=== PATIENT | male | born 1935 | race Caucasian/White ===

== ENCOUNTER → 2016-04-28 | Outpatient (CLI) | payer MEDICARE, BC ==
--- NOTE | 2016-04-28 21:26 | CT ---
EXAMINATION TYPE: CT chest wo con DATE OF EXAM: 04/28/2016 5:55 PM COMPARISON: NONE HISTORY: Productive cough CT DLP: 418.4 mGycm Automated exposure control for dose reduction was used. FINDINGS: There are numerous blebs or bulla seen throughout both lungs compatible with obstructive pulmonary di sease. Small pleural-based calcification in the left upper lobe compatible with granuloma or pleural calcifi cation. There is no pneumothorax pleural effusion. Lack of contrast limits the exam however there appears to be groundglass changes noted bilaterally which could been the basis of an alveolitis or pneumonitis. Additionally appears to be if rounded nodular density within the right lower lobe contains an air-flu id level may represent fluid within a bulla or bleb axial image 48 Pleural-based 10 mm nodule superior segment right lower lobe. Additional nodule seen within the anter ior segment of the lingula axial image 52. There is a 9 mm nodule in posterior segment of the left lo wer lobe also seen. Additional nodule seen in the right upper lobe image 42 measuring 7.5 mm. There i s a 6 mm nodule image 55 in the right lower lobe. The heart is enlarged and there is coronary artery calcification. Atherosclerotic change of the aorta noted. Hypertrophic and degenerative spine. IMPRESSION: 1. Changes of COPD with multiple bulla and bleb. There is a rounded nodule in the right infrahilar re gion upper lobe measuring 2 cm which appears to contain a fluid level likely representing fluid withi n a bulla. Infected bulla in the differential. Abscess or neoplasm not entirely excluded but felt les s likely. 2. Scattered areas of groundglass changes could been the basis of mild alveolitis or pneumonitis. 3. There are multiple pulmonary nodules seen bilaterally with the largest measuring 1 cm. Would recom mend PET scan for further evaluation. Findings could potentially be postinflammatory rather than neop lastic correlate clinically. Given the multiplicity of nodules and lack of calcification PET scan rec ommended as neoplasm or metastasis is not excluded.
== END | disposition home or self-care (01) ==
LOC: RADCTMAIN 17:13
PROVIDERS: ATTEND Internal Medicine Sleep Medicine
DX: J44.9 Chronic obstructive pulmonary disease, unspecified (principal); R91.8 Other nonspecific abnormal finding of lung field
CPT/HCPCS: 71250

== ENCOUNTER 2016-05-19 11:48 | Day surgery (SDC) | payer MEDICARE, BC ==
--- NOTE | 2016-05-13 16:48 | HP ---
DATE OF ADMISSION: CHIEF COMPLAINT: Cough, congestion, shortness of breath and streaks of blood. HISTORY OF PRESENTING ILLNESS: Mr. Kun Bear is an 80-year-old male with extensive history of smoking and nicotine use. He has smoked about 1 to 2 packs per day for about 16 years. He has a very complex past medical history with prior history of hemoptysis but back in 2014. At that time he had a bronchoscopy performed. He was recommended for repeat bronchoscopy but he had declined. He has been on Xarelto for multiple issues including deep venous thrombosis, pulmonary embolism, atrial fibrillation as well history of TIA. He has been having some streaks of blood coming on off and on for the last 2 to 3 months. He has been treated on outpatient basis with doxycycline without any significant relief. Due to persistent nature of hemoptysis, a CT scan of the chest was performed on April 28, 2016 which was reviewed with him at length. His past medical history is significant for history of deep venous thrombosis, pulmonary embolism, severe chronic obstructive pulmonary disease, emphysema, GERD BPH, congestive heart failure, chronic diastolic heart failure, chronic atrial fibrillation, history of pulmonary embolism. ALLERGIES INCLUDE SULFA MEDICATIONS. Medications at home include: 1. Coreg 6.25, 2 tablets once daily. 2. Doxazosin is 1 mg once daily. 3. Pepcid 20 mg 2 times a day. 4. Finasteride is 5 mg once daily. 5. Potassium 1 daily. 6. Carafate 1 gram 4 times a day. 7. Xarelto 20 mg once daily. 8. Aspirin 81 mg 2 times a day. 9. Iron 325 mg daily. 10. Omeprazole 20 mg daily. FAMILY HISTORY AND SOCIAL HISTORY: Otherwise unremarkable and noncontributory except for history of smoking and nicotine use but quit smoking back in mid s. He consumes about a beer on a daily basis though. REVIEW OF SYSTEMS: As dictated above otherwise unremarkable and noncontributory. On examination, his blood pressure 122/70, respiratory rate 18, pulse 67, temperature 97, weight is 218 pounds, height is 78 inches, saturation 96%. HEENT: Atraumatic, normocephalic. Pharynx is clear without exudate. NECK: Supple without lymphadenopathy. Some mandibular small lymph nodes were noted. Neck veins are prominent, but no JVD is present. No bruits present. LUNGS: Bilateral good air entry is present without significant rales, rhonchi, or rub. HEART: Regular rate and rhythm. S1 and S2 audible. ABDOMEN: Soft. No rebound or rigidity. EXTREMITIES: +1 peripheral pulses. NEUROLOGICAL EXAMINATION: Otherwise, awake and alert. His CAT scan of the chest performed on 04/28/16 revealed blebs and bullae predominantly present in the middle part of the chest and lower lobes bilaterally. Left upper lobe calcified pleural plaquelike density seen small in size along with ground glass attenuation, likely suggestive of alveolitis right lower lobe 1 cm nodule present in the superior segment, 6 mm nodule also noted in the right lower lobe along with 7.5 mm nodule in the right upper lobe. Left lower lobe has 9 mm nodule. The area of interest was infrahilar right upper lobe area where about 2 cm size infected bullae or abscess, less likely a nodule, was seen. IMPRESSION: 1. Recurrent hemoptysis going on for the last several weeks to months, did not respond with oral antibiotics and now noted to have a lung abscess versus infected bulla. Patient has been treated with course of doxycycline without any significant relief. Would recommend doing a bronchoscopy and bronchoalveolar large and biopsy in case abnormal pathology is seen. Procedure has been explained to the patient at length. Patient is being scheduled at [facility] on May 19, 2016 for bronchoscopy lavage and maybe a biopsy. 2. Chronic atrial fibrillation and recurrent deep venous thrombosis, pulmonary embolism. For now we will maintain patient on aspirin and stop 2 days before the procedure and Xarelto will be stopped 3 days before the procedure though. 3. Deep venous thrombosis, pulmonary embolism. Plan as above. 4. Chronic atrial fibrillation. 5. Chronic congestive heart failure, likely chronic diastolic heart failure. 6. Chronic obstructive pulmonary disease, emphysema. 7. Extensive bullous lung disease however involving predominantly in the middle part and the lower lobes. We will check an alpha-1 antitrypsin level, which has been on obtained.
[2016-05-14 10:40] VITALS: BMI 25.4
[~2016-05-19 11:48] MED LIST: LACTATED RINGERS 1,000 ML IV SCH
[2016-05-19 12:13] VITALS: TEMP 97.7
[2016-05-19] MEDS ORDERED: LIDOCAINE 1% 20 ML VIAL (10MG/ML) FOR IV START INTRADERMA ONE (12:17)
[2016-05-19] MEDS ORDERED: LIDOCAINE 1% INJ 10MG/ML (20 ML MDV) ONE (12:59)
[2016-05-19] MEDS ORDERED: MIDAZOLAM 2 MG/2 ML VIAL ONE (12:59)
[2016-05-19] MEDS ORDERED: PROPOFOL 10 MG/ML 20 ML VIAL IV ONE (12:59)
[2016-05-19] MEDS ORDERED: LIDOCAINE 2% INJ 20 MG/ML INTRATRACH ONE (13:22)
[2016-05-19 13:37] VITALS: RESP 18
[2016-05-19 14:27] VITALS: BP 121/74; PULSE 81
--- NOTE | 2016-05-20 08:10 | PCN ---
DATE OF PROCEDURE: PROCEDURE PERFORMED : 1. Bronchoscopy. 2. Bronchoalveolar large. INDICATIONS: 1. Hemoptysis. 2. Infected bullous. 3. Lung abscess. 4. Small subcentimeter multiple nodules bilaterally. 5. History of deep venous thrombosis, pulmonary embolism. OPERATIVE DETAIL: Patient was prepared and draped in the usual fashion. Fiber-optic bronchoscope was passed through the right nares. Vocal cords were normal structure and function. Tip of the scope was passed beyond the vocal cords into trachea which were normal in appearance. The tip of the scope was taken to the left side. Left upper lobe, left lingular lobe and left lower lobe along with subsegments were inspected and there was a small area of old blood and some mucous erythema/edema was noted into the left main stem bronchus; however terminal airways were fairly within normal limits. BAL was performed from the area as well as the left upper lobe and left lower lobe. Followed by placement of scope on the right side, right upper lobe, middle lobe and right lower lobe along with subsegments were inspected. No endobronchial mass or lesion was identified. The BAL was performed from the right upper lobe as well. Patient tolerated the procedure well. No complication noted.
[2016-06-04 16:04] LABS: Mis test requested (Non-blood) PNEUMOCYSTIS PCR
[2016-06-04 16:10] LABS: Mis test requested (Non-blood) LEGIONELLA
== END 2016-05-19 14:26 | disposition home or self-care (01) ==
LOC: ORWHC2ENDO 11:48
PROVIDERS: ATTEND Internal Medicine Sleep Medicine
DX: J44.9 Chronic obstructive pulmonary disease, unspecified (principal); J85.2 Abscess of lung without pneumonia; J43.9 Emphysema, unspecified; I25.10 Atherosclerotic heart disease of native coronary artery without angina pectoris; I11.0 Hypertensive heart disease with heart failure; I50.32 Chronic diastolic (congestive) heart failure; F17.200 Nicotine dependence, unspecified, uncomplicated; I48.2 Chronic atrial fibrillation; Z79.01 Long term (current) use of anticoagulants; Z86.711 Personal history of pulmonary embolism; Z86.718 Personal history of other venous thrombosis and embolism; Z86.73 Personal history of transient ischemic attack (TIA), and cerebral infarction without residual deficits; I25.2 Old myocardial infarction; E78.5 Hyperlipidemia, unspecified; I73.9 Peripheral vascular disease, unspecified; K21.9 Gastro-esophageal reflux disease without esophagitis; Z79.82 Long term (current) use of aspirin; Z79.899 Other long term (current) drug therapy; Z91.012 Allergy to eggs; Z91.011 Allergy to milk products; Z88.2 Allergy status to sulfonamides; Z91.018 Allergy to other foods
CPT/HCPCS: 88108; 88305; 87252; 87070; 87205; 87116; 87102; 87077; 87186; 87206; 31624; J2001 ×2; J2250; J2704; 87496; 87498; 87502; 87529; 87541; 87798

== ENCOUNTER 2016-06-15 10:13 | Inpatient (IN) | payer MEDICARE, BC ==
--- NOTE | 2016-06-15 11:15 | ED ---
General Adult HPI - General Chief complaint: GI Bleed Stated complaint: throwing up blood Time Seen by Provider: 06/15/16 10:35 Source: patient, family, RN notes reviewed Mode of arrival: ambulatory Limitations: no limitations - History of Present Illness Initial comments: This is an 80-year-old male who presents emergency department because he is coughing up blood. Patient states his been ongoing intermittently for 2 weeks. Patient states the last few days it is become much much heavier and today he coughed up approximately one half of which are of blood. 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 Patient denies any abdominal pain patient denies vomiting or diarrhea. Patient denies any lightheadedness or dizziness. Patient denies headache patient denies numbness weakness - Related Data Home Medications Medication Instructions Recorded Confirmed Rivaroxaban [Xarelto] 20 mg PO DAILY 12/17/13 06/15/16 Omeprazole [PriLOSEC] 20 mg PO QAM 11/27/14 06/15/16 Acetaminophen Tab [Tylenol Tab] 1,000 mg PO Q6HR PRN 12/23/14 06/15/16 Ferrous Sulfate [Feosol] 325 mg PO DAILY 12/23/14 06/15/16 Carvedilol [Coreg] 6.25 mg PO BID 05/14/16 06/15/16 Doxazosin [Cardura] 2 mg PO HS 05/14/16 06/15/16 Finasteride [Proscar] 5 mg PO QAM 05/14/16 06/15/16 Potassium Chloride [Klor-Con 10] 10 meq PO DAILY 05/14/16 06/15/16 Aspirin EC [Ecotrin Low Dose] 81 mg PO DAILY 06/15/16 06/15/16 Previous Rx's Medication Instructions Recorded Famotidine [Pepcid] 20 mg PO BID tab 11/28/14 Sucralfate [Carafate] 1 gm PO QID tab 11/28/14 Allergies Allergy/AdvReac Type Severity Reaction Status Date / Time milk Allergy Abdominal Verified 06/15/16 11:25 Pain, GAS,freq urination Sulfa (Sulfonamide Allergy Rash/Hives Verified 06/15/16 11:25 Antibiotics) wheat Allergy Rash/Hives,freq Verified 06/15/16 11:25 urinat but states eats a little bit of wheat EGG WHITES Allergy Rash/Hives,freq Uncoded 05/19/16 12:08 urination Review of Systems ROS Statement: Those systems with pertinent positive or pertinent negative responses have been documented in the HPI. ROS Other: All systems not noted in ROS Statement are negative. Past Medical History Past Medical History: Atrial Fibrillation, Coronary Artery Disease (CAD), Heart Failure, COPD, CVA/TIA, Deep Vein Thrombosis (DVT), GERD/Reflux, GI Bleed, Hyperlipidemia, Memory Impairment, Myocardial Infarction (CO), Pneumonia, Prostate Disorder, Pulmonary Embolus (PE), Renal Disease, Vascular Disorder Additional Past Medical History / Comment(s): Tx for recent lung infection,Per Son, Has AAA, UNK SIZE. LT Leg DVT. BPH. Diverticulosis. Varicosities Richard LEGS. EDEMA FEET. HX FX LT Foot, LT Elbow yrs ago. Priyanka Roth, 11/27/14 - ADM TO [facility] W/ SEV TIA'S. SOME MEMORY CHANGES NOTED. Last Myocardial Infarction Date:: unkn History of Any Multi-Drug Resistant Organisms: MRSA Date of last positivie culture/infection: 2013 MDRO Source:: R leg Past Surgical History: Heart Catheterization, Orthopedic Surgery Additional Past Surgical History / Comment(s): 2012 Colonoscopy-nl. 2008 cardiac cath-nl. RT Shoulder Bicep Tendon repair. ORIF LT elbow 2007. RT knee arthroscopy. Nasophaygeal Larynoscopy, Broncoscopy (Bronch was pos for e- coli). 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 Smoking Status: Former smoker Past Alcohol Use History: None Reported Additional Past Alcohol Use History / Comment(s): HX Smoking cigarettes, pipe and cigars . He smoked between 1/2-1ppd for 20-30 yrs. He quit smoking in 2001 Past Drug Use History: None Reported - Past Family History Father Family Medical History: Cancer Additional Family Medical History / Comment(s): Father was an alcoholic, FROM PROSTATE CANCER Mother Family Medical History: Cancer Additional Family Medical History / Comment(s): UTERINE CANCER General Exam - General Exam Comments Initial Comments: GENERAL: Patient is well-developed and well-nourished. Patient is nontoxic and well- hydrated and is in no acute distress. ENT: Neck is soft and supple. No significant lymphadenopathy is noted. Oropharynx is clear. Moist mucous membranes. Neck has full range of motion without eliciting any pain. EYES: The sclera were anicteric and conjunctiva were pink and moist. Extraocular movements were intact and pupils were equal round and reactive to light. Eyelids were unremarkable. PULMONARY: Unlabored respirations. Patient has diffuse rhonchi. CARDIOVASCULAR: There is a regular rate and rhythm without any murmurs gallops or rubs. ABDOMEN: Soft and nontender with normal bowel sounds. No palpable organomegaly was noted. There is no palpable pulsatile mass. SKIN: Skin is clear with no lesions or rashes and otherwise unremarkable. NEUROLOGIC: Patient is alert and oriented x3. Cranial nerves II through XII are grossly intact. Motor and sensory are also intact. Normal speech, volume and content. Symmetrical smile. MUSCULOSKELETAL: Normal extremities with adequate strength and full range of motion. No lower extremity swelling or edema. No calf tenderness. LYMPHATICS: No significant lymphadenopathy is noted PSYCHIATRIC: Normal psychiatric evaluation. Normal interpersonal interactions appears functionally intact in deals appropriately with others. No signs of depression. No signs of anxiety. Limitations: no limitations Course Vital Signs 06/15/16 06/15/16 10:32 11:21 Temperature 97.7 F Pulse Rate 72 83 Respiratory 18 16 Rate Blood Pressure 109/58 116/71 O2 Sat by Pulse 96 96 Oximetry Medical Decision Making - Medical Decision Making EKG shows sinus rhythm with occasional PVCs at a rate of 80 bpm [place] interval is on an 86 Rosie on a 14 QT interval 376 QTC is 454. Patient's EKG shows no ST segment elevation or depression Chest x-ray shows consolidation of the right upper lobe. I spoke with Dr. Bae he wanted the patient on K Sentra and antibiotics for the possibility of a pneumonia. I wrote admitting orders I consult the doctor skye I continued the antibiotics on the floor. - Lab Data Result diagrams: 06/15/16 11:07 06/15/16 11:07 Lab Results 06/15/16 06/15/16 06/15/16 Range/Units 11:07 11:07 11:07 WBC 7.0 (3.8-10.6) k/uL RBC 3.24 L (4.30-5.90) m/uL Hgb 10.8 L (13.0-17.5) gm/dL Hct 31.2 L (39.0-53.0) % MCV 96.2 (80.0-100.0) fL MCH 33.3 (25.0-35.0) pg MCHC 34.6 (31.0-37.0) g/dL RDW 12.7 (11.5-15.5) % Plt Count 141 L (150-450) k/uL Neutrophils % 86 % Lymphocytes % 7 % Monocytes % 6 % Eosinophils % 0 % Basophils % 0 % Neutrophils # 6.0 (1.3-7.7) k/uL Lymphocytes # 0.5 L (1.0-4.8) k/uL Monocytes # 0.4 (0-1.0) k/uL Eosinophils # 0.0 (0-0.7) k/uL Basophils # 0.0 (0-0.2) k/uL PT (9.0-12.0) sec INR (<1.1) APTT (22.0-30.0) sec Sodium 136 L (137-145) mmol/L Potassium 4.5 (3.5-5.1) mmol/L Chloride 101 (98-107) mmol/L Carbon Dioxide 25 (22-30) mmol/L Anion Gap 10 mmol/L BUN 32 H (9-20) mg/dL Creatinine 1.85 H (0.66-1.25) mg/dL Est GFR (MDRD) Af Amer 43 (>60 ml/min/1.73 sqM) Est GFR (MDRD) Non-Af 35 (>60 ml/min/1.73 sqM) Glucose 125 H (74-99) mg/dL Calcium 9.2 (8.4-10.2) mg/dL Magnesium 2.3 (1.6-2.3) mg/dL Total Bilirubin 1.7 H (0.2-1.3) mg/dL AST 24 (17-59) U/L ALT 20 L (21-72) U/L Alkaline Phosphatase 60 (38-126) U/L Total Creatine Kinase 127 (55-170) U/L CK-MB (CK-2) 1.3 (0.0-2.4) ng/mL CK-MB (CK-2) Rel Index 1.0 Troponin I <0.012 (0.000-0.034) ng/mL Total Protein 7.2 (6.3-8.2) g/dL Albumin 3.5 (3.5-5.0) g/dL 06/15/16 Range/Units 11:07 WBC (3.8-10.6) k/uL RBC (4.30-5.90) m/uL Hgb (13.0-17.5) gm/dL Hct (39.0-53.0) % MCV (80.0-100.0) fL MCH (25.0-35.0) pg MCHC (31.0-37.0) g/dL RDW (11.5-15.5) % Plt Count (150-450) k/uL Neutrophils % % Lymphocytes % % Monocytes % % Eosinophils % % Basophils % % Neutrophils # (1.3-7.7) k/uL Lymphocytes # (1.0-4.8) k/uL Monocytes # (0-1.0) k/uL Eosinophils # (0-0.7) k/uL Basophils # (0-0.2) k/uL PT 11.6 (9.0-12.0) sec INR 1.2 (<1.1) APTT 27.4 (22.0-30.0) sec Sodium (137-145) mmol/L Potassium (3.5-5.1) mmol/L Chloride (98-107) mmol/L Carbon Dioxide (22-30) mmol/L Anion Gap mmol/L BUN (9-20) mg/dL Creatinine (0.66-1.25) mg/dL Est GFR (MDRD) Af Amer (>60 ml/min/1.73 sqM) Est GFR (MDRD) Non-Af (>60 ml/min/1.73 sqM) Glucose (74-99) mg/dL Calcium (8.4-10.2) mg/dL Magnesium (1.6-2.3) mg/dL Total Bilirubin (0.2-1.3) mg/dL AST (17-59) U/L ALT (21-72) U/L Alkaline Phosphatase (38-126) U/L Total Creatine Kinase (55-170) U/L CK-MB (CK-2) (0.0-2.4) ng/mL CK-MB (CK-2) Rel Index Troponin I (0.000-0.034) ng/mL Total Protein (6.3-8.2) g/dL Albumin (3.5-5.0) g/dL Disposition Clinical Impression: Hemoptysis, Pneumonia Disposition: ADMITTED IP TO THIS HOSP Referrals: Remington Underwood MD [Primary Care Provider] - 1-2 days Time of Disposition: 13:11
[2016-06-15 11:39] LABS: Basophils % (A) 0 %; CH 33.2; CHCM 34.7; Eosinophils % (A) 0 %; HCT 31.2 % (39.0-53.0); HDW 2.69; HGB 10.8 gm/dL (13.0-17.5); Luc # (Auto) 0.08; Luc % (Auto) 1; Lymphocytes # (A) 0.5 k/uL (1.0-4.8); Lymphocytes % (A) 7 %; MCH 33.3 pg (25.0-35.0); MCHC 34.6 g/dL (31.0-37.0); MCV 96.2 fL (80.0-100.0); Mean Platelet Volume 6.6; Monocytes # (A) 0.4 k/uL (0-1.0); Monocytes % (A) 6 %; Neutrophils % (A) 86 %; RBC 3.24 m/uL (4.30-5.90); RDW 12.7 % (11.5-15.5); WBC (Perox) 7.69
[2016-06-15 11:44] LABS: Calcium 9.2 mg/dL (8.4-10.2); Magnesium 2.3 mg/dL (1.6-2.3); Potassium 4.5 mmol/L (3.5-5.1); Total Bilirubin 1.7 mg/dL (0.2-1.3); Total Protein 7.2 g/dL (6.3-8.2)
[2016-06-15 11:52] LABS: Creatine Kinase 127 U/L (55-170)
--- NOTE | 2016-06-15 12:02 | XR ---
EXAMINATION TYPE: XR chest 2V DATE OF EXAM: 06/15/2016 11:54 AM COMPARISON: 12/05/2014 INDICATION: Difficulty breathing cough no blood TECHNIQUE: Single frontal view of the chest is obtained. FINDINGS: The heart size is normal. The pulmonary vasculature is normal. There is a large consolidation within the right upper lobe correlate for pneumonia. This should be fo llowed to clearing. Minimal subsegmental atelectasis may be at the left base. IMPRESSION: 1. Large right upper lobe consolidation. Correlate for pneumonia. Follow-up to clearing is recommendquin tolentino
[2016-06-15 12:05] LABS: Creatine Kinase MB 1.3 ng/mL (0.0-2.4); Troponin I <0.012 ng/mL (0.000-0.034)
[2016-06-15 12:17] LABS: INR 1.2 (<1.1); Partial Thromboplastin Time 27.4 sec (22.0-30.0); Prothrombin Time 11.6 sec (9.0-12.0)
[2016-06-15] MEDS ORDERED: NALOXONE 0.4 MG/ML 1 ML VIAL IV PRN (13:28)
[2016-06-15] MEDS ORDERED: PIPERACILLIN-TAZOBACTAM 3.375 GM in DEXTROSE/WATER 1 50ML.BAG IVPB STA (13:35)
[2016-06-15] MEDS ORDERED: IV VANCOMYCIN PER PHARMACY 1 EACH MISC MISCELLANE PRN (13:40)
[2016-06-15] MEDS ORDERED: HUMAN PROTHROMBIN COMPLX 500 UNIT/16 ML VIAL IV ONE (13:41)
[2016-06-15] MEDS ORDERED: HUMAN PROTHROMBIN COMPLX IV ONE ×2 (14:00)
[2016-06-15] MEDS: VANCOMYCIN 1,750 MG in SODIUM CHLORIDE 0.9% 250 ML IVPB STA ×2 (14:10→14:45)
[2016-06-15] MEDS ORDERED: CODEINE 30 MG TAB PO PRN (14:43)
[2016-06-15 15:16] LABS: Basophils % (A) 0 %; CH 32.5; CHCM 33.2; Eosinophils % (A) 0 %; HCT 30.2 % (39.0-53.0); HDW 2.56; HGB 9.8 gm/dL (13.0-17.5); Luc # (Auto) 0.09; Luc % (Auto) 1; Lymphocytes # (A) 0.7 k/uL (1.0-4.8); Lymphocytes % (A) 10 %; MCH 31.8 pg (25.0-35.0); MCHC 32.4 g/dL (31.0-37.0); MCV 98.1 fL (80.0-100.0); Mean Platelet Volume 7.8; Monocytes # (A) 0.4 k/uL (0-1.0); Monocytes % (A) 5 %; Neutrophils % (A) 84 %; RBC 3.07 m/uL (4.30-5.90); RDW 13.1 % (11.5-15.5); WBC 7.2 k/uL (3.8-10.6); WBC (Perox) 7.56
--- NOTE | 2016-06-15 16:43 | P.CNPUL ---
History of Present Illness Consult date: 06/15/16 Requesting physician: Remington Underwood Reason for consult: pneumonia, other (hemoptsis) Chief complaint: hemoptysis History of present illness: This is an 80-year-old male patient being evaluated and examined examined today in the intensive care unit. This patient came into the ER for significant hemoptysis he keeps coughing up blood. This patient is well-known to our office and has had multiple bronchoscopies. The patient frequently comes and with hemoptysis which is scant, however this has increased significantly over the last week. The patient is also on Xarelto, and has had previous PEs and DVTs.. The patient was given a dose of K Sentra to reverse Xarelto. Hemoglobin initially was 10.8 however the repeat at this evening is 9.8. Chest x-ray reveals a right upper lobe pneumonia and the patient has been started on antibiotics for that as well. Patient denies any fever or any abdominal pain, nausea, vomiting, diarrhea or constipation. Patient also denies any lightheadedness or dizziness, headaches or weakness. Review of Systems 14 point review of systems was completed and is negative other than what's noted in the HPI Past Medical History Past Medical History: Atrial Fibrillation, Coronary Artery Disease (CAD), Heart Failure, COPD, CVA/TIA, Deep Vein Thrombosis (DVT), GERD/Reflux, GI Bleed, Hyperlipidemia, Memory Impairment, Myocardial Infarction (NM), Pneumonia, Prostate Disorder, Pulmonary Embolus (PE), Renal Disease, Vascular Disorder Additional Past Medical History / Comment(s): Tx for recent lung infection,Per Son, Has AAA, UNK SIZE. LT Leg DVT. BPH. Diverticulosis. Varicosities Richard LEGS. EDEMA FEET. HX FX LT Foot, LT Elbow yrs ago. Priyanka Roth, 11/27/14 - ADM TO [facility] W/ SEV TIA'S. SOME MEMORY CHANGES NOTED. Last Myocardial Infarction Date:: unkn History of Any Multi-Drug Resistant Organisms: MRSA Date of last positivie culture/infection: 2013 MDRO Source:: R leg Past Surgical History: Heart Catheterization, Orthopedic Surgery Additional Past Surgical History / Comment(s): 2012 Colonoscopy-nl. 2008 cardiac cath-nl. RT Shoulder Bicep Tendon repair. ORIF LT elbow 2007. RT knee arthroscopy. Nasophaygeal Larynoscopy, Broncoscopy (Bronch was pos for e- coli). 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 Smoking Status: Former smoker Past Alcohol Use History: None Reported Additional Past Alcohol Use History / Comment(s): HX Smoking cigarettes, pipe and cigars . He smoked between 1/2-1ppd for 20-30 yrs. He quit smoking in 2001 Past Drug Use History: None Reported - Past Family History Father Family Medical History: Cancer Additional Family Medical History / Comment(s): Father was an alcoholic, FROM PROSTATE CANCER Mother Family Medical History: Cancer Additional Family Medical History / Comment(s): UTERINE CANCER Medications and Allergies Home Medications Medication Instructions Recorded Confirmed Type Rivaroxaban [Xarelto] 20 mg PO DAILY 12/17/13 06/15/16 History Omeprazole [PriLOSEC] 20 mg PO QAM 11/27/14 06/15/16 History Acetaminophen Tab [Tylenol Tab] 1,000 mg PO Q6HR PRN 12/23/14 06/15/16 History Ferrous Sulfate [Feosol] 325 mg PO DAILY 12/23/14 06/15/16 History Carvedilol [Coreg] 6.25 mg PO BID 05/14/16 06/15/16 History Doxazosin [Cardura] 2 mg PO HS 05/14/16 06/15/16 History Finasteride [Proscar] 5 mg PO QAM 05/14/16 06/15/16 History Potassium Chloride [Klor-Con 10] 10 meq PO DAILY 05/14/16 06/15/16 History Aspirin EC [Ecotrin Low Dose] 81 mg PO DAILY 06/15/16 06/15/16 History Allergies Allergy/AdvReac Type Severity Reaction Status Date / Time milk Allergy Abdominal Verified 06/15/16 11:25 Pain, GAS,freq urination Sulfa (Sulfonamide Allergy Rash/Hives Verified 06/15/16 11:25 Antibiotics) wheat Allergy Rash/Hives,freq Verified 06/15/16 11:25 urinat but states eats a little bit of wheat EGG WHITES Allergy Rash/Hives,freq Uncoded 05/19/16 12:08 urination Physical Exam Vitals: Vital Signs Pulse Resp BP Pulse Ox 06/15/16 15:56 83 18 127/72 95 06/15/16 14:42 83 18 157/72 94 L 06/15/16 14:00 86 18 139/71 93 L GENERAL EXAM: Alert, tired, comfortable in no apparent distress. HEAD: Normocephalic. EYES: Normal reaction of pupils, equal size. NOSE: Clear with pink turbinates. THROAT: No erythema or exudates. NECK: No masses, no JVD. CHEST: No chest wall deformity. LUNGS: Equal air entry, scattered rhonchi noted throughout. CVS: S1 and S2 normal with no audible mumurs, regular rhythm. ABDOMEN: No hepatosplenomegaly, normal bowel sounds, no guarding or rigidity. EXTREMITIES: No edema noted, pedal pulses palpable. SKIN: No rashes CENTRAL NERVOUS SYSTEM: No focal deficits, tone is normal in all 4 extremities. Results - Laboratory Findings CBC and BMP: 06/15/16 15:06 06/15/16 11:07 PT/INR, D-dimer PT 11.6 sec (9.0-12.0) 06/15/16 11:07 INR 1.2 (<1.1) 06/15/16 11:07 Abnormal lab findings: Abnormal Labs 06/15/16 15:06 RBC 3.07 L Hgb 9.8 L Hct 30.2 L Plt Count 120 L Lymphocytes # 0.7 L - Diagnostic Findings Chest x-ray: report reviewed Assessment and Plan Plan: Assessment Hemoptysis Right upper lobe pneumonia Acute blood loss anemia Paroxysmal atrial fibrillation History of PE and DVTs Plan Medications have been reviewed and will be continued. We will schedule the patient for bronchoscopy tomorrow. We will also put on cardio thoracic specialist for consult. We will also put the patient on Solu-Medrol IV 40 every 8 hours. We will also put the patient on codeine around the clock to suppress his cough and to minimize hemoptysis. We will keep the patient nothing by mouth except meds and ice chips. We will continue to monitor labs/ results and adjust treatment as necessary. I performed an examination of the patient and discussed their management with the nurse practitioner. I have reviewed the nurse practitioner's note and agree with the documented findings and plan of care.
[2016-06-15] MEDS: PANTOPRAZOLE 40 MG/10 ML VIAL IV SCH (17:03)
[2016-06-15] MEDS: methylPREDNISolone SOD SUCCI 40 MG/ML 1 ML VIAL IV SCH (17:03)
[2016-06-15] MEDS: CODEINE 30 MG TAB PO SCH (17:04)
[2016-06-15 18:34] LABS: Amorphous Sediment,Urine Few /hpf; Appearance,Urine Cloudy (Clear); Bacteria,Urine Rare /hpf; Bilirubin,Urine Negative (Negative); Glucose,Urine (UA) Negative (Negative); Ketones,Urine Negative (Negative); Leukocyte Esterase,Urine Negative (Negative); Mucus,Urine Few /hpf; Nitrite,Urine Negative (Negative); PH, Urine 6.5 (5.0-8.0); Particle Count 10366; Protein,Urine 1+ (Negative); RBC,Urine >182 /hpf (0-5); Specific Gravity,Urine 1.013 (1.001-1.035); UA Billing (MACRO vs. MICRO) MICRO; Urobilinogen,Urine <2.0 mg/dL (<2.0); WBC,Urine 2 /hpf (0-5)
[2016-06-15] MEDS ORDERED: ACETAMINOPHEN TAB 500 MG TAB PO STA (19:04)
[2016-06-15] MEDS ORDERED: ACETAMINOPHEN IV (For NPO) 1,000 MG in EMPTY BAG 1 BAG IVPB PRN (19:12)
[2016-06-15 20:31] LABS: Basophils % (A) 0 %; Eosinophils % (A) 0 %; HCT 26.9 % (39.0-53.0); HDW 2.68; HGB 9.3 gm/dL (13.0-17.5); Luc # (Auto) 0.04; Luc % (Auto) 1; Lymphocytes # (A) 0.4 k/uL (1.0-4.8); Lymphocytes % (A) 6 %; MCH 33.5 pg (25.0-35.0); MCHC 34.4 g/dL (31.0-37.0); MCV 97.5 fL (80.0-100.0); Mean Platelet Volume 6.7; Monocytes # (A) 0.2 k/uL (0-1.0); Monocytes % (A) 3 %; Neutrophils # (A) 5.6 k/uL (1.3-7.7); Neutrophils % (A) 90 %; RBC 2.76 m/uL (4.30-5.90); RDW 12.6 % (11.5-15.5); WBC 6.2 k/uL (3.8-10.6); WBC (Perox) 6.13
[2016-06-15] MEDS: LEVALBUTEROL NEB (CONC) 1.25 MG/0.5 ML AMP INHALATION SCH (21:14)
[2016-06-15] MEDS: IPRATROPIUM 0.5 MG/2.5 ML NEBU INHALATION SCH (21:14)
[2016-06-15] MEDS: BUDESONIDE 0.5 MG/2 ML NEBU INHALATION SCH (21:14)
[2016-06-15] MEDS: PIPERACILLIN-TAZOBACTAM 3.375 GM in DEXTROSE/WATER 1 50ML.BAG IVPB SCH (22:23)
[2016-06-16] MEDS: methylPREDNISolone SOD SUCCI 40 MG/ML 1 ML VIAL IV SCH ×4 (01:53→23:22)
[2016-06-16] MEDS: CODEINE 30 MG TAB PO SCH ×5 (01:55→23:22)
[2016-06-16 05:54] LABS: Basophils % (A) 0 %; CH 32.5; CHCM 33.8; Eosinophils % (A) 0 %; HCT 29.3 % (39.0-53.0); HDW 2.74; HGB 9.9 gm/dL (13.0-17.5); Luc # (Auto) 0.02; Luc % (Auto) 0; Lymphocytes # (A) 0.3 k/uL (1.0-4.8); Lymphocytes % (A) 6 %; MCH 32.8 pg (25.0-35.0); MCHC 33.9 g/dL (31.0-37.0); MCV 96.7 fL (80.0-100.0); Mean Platelet Volume 7.1; Monocytes # (A) 0.1 k/uL (0-1.0); Monocytes % (A) 2 %; Neutrophils # (A) 4.4 k/uL (1.3-7.7); Neutrophils % (A) 91 %; RBC 3.03 m/uL (4.30-5.90); RDW 12.5 % (11.5-15.5); WBC 4.8 k/uL (3.8-10.6); WBC (Perox) 5.16
[2016-06-16 06:08] LABS: Calcium 9.2 mg/dL (8.4-10.2); Magnesium 2.4 mg/dL (1.6-2.3); Phosphorous 3.9 mg/dL (2.5-4.5); Potassium 4.6 mmol/L (3.5-5.1)
[2016-06-16] MEDS: LEVALBUTEROL NEB (CONC) 1.25 MG/0.5 ML AMP INHALATION SCH ×4 (07:00→20:29)
[2016-06-16] MEDS: IPRATROPIUM 0.5 MG/2.5 ML NEBU INHALATION SCH ×4 (07:00→20:28)
[2016-06-16] MEDS: BUDESONIDE 0.5 MG/2 ML NEBU INHALATION SCH ×2 (07:00→20:28)
[2016-06-16] MEDS: PIPERACILLIN-TAZOBACTAM 3.375 GM in DEXTROSE/WATER 1 50ML.BAG IVPB SCH ×3 (07:28→21:23)
--- NOTE | 2016-06-16 07:57 | XR ---
EXAMINATION TYPE: XR chest 1V DATE OF EXAM: 06/16/2016 7:09 AM HISTORY: Shortness of breath. COMPARISON: None. TECHNIQUE: Single view of the chest is submitted. FINDINGS: Demonstrated are scattered senescent parenchymal change. There is persistent large area of airspace consolidation right upper lobe. There is also developing l eft mid lung zone infiltrate. The heart is stable. Hilar and mediastinal structures are within normal limits. Degenerative changes are seen of the dorsal spine. IMPRESSION: 1. There is persistent large area of airspace consolidation right upper lobe. There is also developi ng left mid lung zone infiltrate.
[2016-06-16] MEDS ORDERED: IV FLUID CONTINUATION 1,000 ML IV ONE (10:28)
[2016-06-16] MEDS ORDERED: LIDOCAINE 1% INJ 10MG/ML (20 ML MDV) ONE (10:31)
[2016-06-16] MEDS ORDERED: ETOMIDATE 2 MG/ML 10 ML VIAL ONE (10:31)
[2016-06-16] MEDS ORDERED: LIDOCAINE 2% INJ 20 MG/ML INTRATRACH ONE (10:49)
[2016-06-16] MEDS: VANCOMYCIN 1,500 MG in SODIUM CHLORIDE 0.9% 250 ML IVPB SCH (11:41)
--- NOTE | 2016-06-16 12:30 | P.GSCN ---
<Edelmira Christine - Last Filed: 06/16/16 12:14> History of Present Illness Consult date: 06/16/16 Reason for Consult: Frequent, recurrent hemoptysis. Requesting physician: Lesvia Mobley History of present illness: This 80-year-old male with a previous history of atrial fibrillation, congestive heart failure, COPD, CVA, DVT, and pulmonary embolism presented to the emergency department yesterday after approximately a month of intermittent coughing up blood. He states that these episodes have been increasing over the last couple days and he felt he needed to come to the emergency room. He denied any chest pain, palpitations, shortness of breath, lightheadedness, dizziness, syncope, abdominal pain, vomiting or diarrhea. He does state that he is on Xarelto for the above-mentioned previous medical problems. He does have a history of multiple bronchoscopies by pulmonology. He is being admitted to the hospital for right upper lobe pneumonia and has been started on antibiotics. He is to have a bronchoscopy done today. Cardio thoracic surgery was consulted in the event that a bleeding site is found and to determine if surgical intervention would be an appropriate approach for this patient. Review of Systems 14 point review of systems was completed and is negative except as noted. - Gastrointestinal Reports as per HPI Past Medical History Past Medical History: Atrial Fibrillation, Coronary Artery Disease (CAD), Heart Failure, COPD, CVA/TIA, Deep Vein Thrombosis (DVT), GERD/Reflux, GI Bleed, Hyperlipidemia, Memory Impairment, Myocardial Infarction ([place]), Pneumonia, Prostate Disorder, Renal Disease, Vascular Disorder Additional Past Medical History / Comment(s): Pt has had streaks of blood in sputum for the past couple months, hemoptysis with lung abscess-he had a bronchoscopy with BAL 05/19/16, bollous lung disease, AAA, UNK SIZE, LT Leg DVT, renal disease stage II, hematuria, BPH, diverticulosis. Varicosities Richard LEGS, EDEMA FEET, HX FX LT Foot, LT Elbow yrs ago, Freq Gas, 11/27/14 - ADM TO [facility] W / SEV TIA'S, SOME MEMORY CHANGES NOTED. Last Myocardial Infarction Date:: unkn History of Any Multi-Drug Resistant Organisms: MRSA Year Discovered:: 2013 MDRO Source:: R leg Past Surgical History: Heart Catheterization, Orthopedic Surgery Additional Past Surgical History / Comment(s): 05/19/16 bronchoscopy with BAL, 2012 Colonoscopy-nl. 2008 cardiac cath-nl. RT Shoulder Bicep Tendon repair. ORIF LT elbow 2007. RT knee arthroscopy. Nasophaygeal Larynoscopy, 2013 Broncoscopy (Bronch was pos for e-coli). 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 Smoking Status: Former smoker Past Alcohol Use History: None Reported Additional Past Alcohol Use History / Comment(s): HX Smoking cigarettes, pipe and cigars . He smoked between 1/2-1ppd for 20-30 yrs. He quit smoking in 2001 Past Drug Use History: None Reported - Past Family History Father Family Medical History: Cancer Additional Family Medical History / Comment(s): Father was an alcoholic, FROM PROSTATE CANCER at the age of 87yrs. Mother Family Medical History: Cancer Additional Family Medical History / Comment(s): UTERINE CANCER Medications and Allergies Home Medications Medication Instructions Recorded Confirmed Type Rivaroxaban [Xarelto] 20 mg PO DAILY 12/17/13 06/15/16 History Omeprazole [PriLOSEC] 20 mg PO QAM 11/27/14 06/15/16 History Acetaminophen Tab [Tylenol Tab] 1,000 mg PO Q6HR PRN 12/23/14 06/15/16 History Ferrous Sulfate [Feosol] 325 mg PO DAILY 12/23/14 06/15/16 History Carvedilol [Coreg] 6.25 mg PO BID 05/14/16 06/15/16 History Doxazosin [Cardura] 2 mg PO HS 05/14/16 06/15/16 History Finasteride [Proscar] 5 mg PO QAM 05/14/16 06/15/16 History Potassium Chloride [Klor-Con 10] 10 meq PO DAILY 05/14/16 06/15/16 History Aspirin EC [Ecotrin Low Dose] 81 mg PO DAILY 06/15/16 06/15/16 History Allergies Allergy/AdvReac Type Severity Reaction Status Date / Time milk Allergy Abdominal Verified 06/15/16 11:25 Pain, GAS,freq urination Sulfa (Sulfonamide Allergy Rash/Hives Verified 06/15/16 11:25 Antibiotics) wheat Allergy Rash/Hives,freq Verified 06/15/16 11:25 urinat but states eats a little bit of wheat EGG WHITES Allergy Rash/Hives,freq Uncoded 05/19/16 12:08 urination Surgical - Exam Vital Signs Temp Pulse Resp BP Pulse Ox 97.7 F 72 18 109/58 96 06/15/16 10:32 06/15/16 10:32 06/15/16 10:32 06/15/16 10:32 06/15/16 10:32 - General well developed, well nourished, no distress, no pain - Eyes PERRL, normal ocular movement - ENT no hearing loss - Neck no masses, trachea midline - Respiratory Coarse breath sounds, right greater than left. Currently on 2 L nasal cannula. normal expansion, normal respiratory effort - Cardiovascular Normal sinus rhythm on telemetry. Rhythm: regular Heart Sounds: normal: S1, S2 - Abdomen Abdomen: soft, non tender, bowel sounds - Genitourinary Deferred - Rectum Deferred - Integumentary no rash - Neurologic normal coordination, normal sensation - Psychiatric oriented to time, oriented to person, oriented to place, speech is normal, memory intact Results - Labs 06/16/16 05:34 06/16/16 05:34 Abnormal Lab Results - Last 24 Hours (Table) 06/15/16 06/15/16 06/15/16 Range/Units 15:06 18:22 19:55 RBC 3.07 L 2.76 L (4.30-5.90) m/uL Hgb 9.8 L 9.3 L (13.0-17.5) gm/dL Hct 30.2 L 26.9 L (39.0-53.0) % Plt Count 120 L 129 L (150-450) k/uL Lymphocytes # 0.7 L 0.4 L (1.0-4.8) k/uL BUN (9-20) mg/dL Creatinine (0.66-1.25) mg/dL Glucose (74-99) mg/dL Magnesium (1.6-2.3) mg/dL Urine Protein 1+ H (Negative) Urine Blood Moderate H (Negative) Urine RBC >182 H (0-5) /hpf Amorphous Sediment Few H (None) /hpf Urine Bacteria Rare H (None) /hpf Urine Mucus Few H (None) /hpf 06/16/16 06/16/16 Range/Units 05:34 05:34 RBC 3.03 L (4.30-5.90) m/uL Hgb 9.9 L (13.0-17.5) gm/dL Hct 29.3 L (39.0-53.0) % Plt Count 133 L (150-450) k/uL Lymphocytes # 0.3 L (1.0-4.8) k/uL BUN 36 H (9-20) mg/dL Creatinine 1.77 H (0.66-1.25) mg/dL Glucose 149 H (74-99) mg/dL Magnesium 2.4 H (1.6-2.3) mg/dL Urine Protein (Negative) Urine Blood (Negative) Urine RBC (0-5) /hpf Amorphous Sediment (None) /hpf Urine Bacteria (None) /hpf Urine Mucus (None) /hpf Microbiology - Last 24 Hours (Table) 06/15/16 18:22 Urine Culture - Preliminary Urine,Voided Diabetes panel 06/16/16 Range/Units 05:34 Sodium 138 (137-145) mmol/L Potassium 4.6 (3.5-5.1) mmol/L Chloride 104 (98-107) mmol/L Carbon Dioxide 23 (22-30) mmol/L BUN 36 H (9-20) mg/dL Creatinine 1.77 H (0.66-1.25) mg/dL Glucose 149 H (74-99) mg/dL Calcium 9.2 (8.4-10.2) mg/dL Calcium panel 06/16/16 Range/Units 05:34 Calcium 9.2 (8.4-10.2) mg/dL Phosphorus 3.9 (2.5-4.5) mg/dL Pituitary panel 06/16/16 Range/Units 05:34 Sodium 138 (137-145) mmol/L Potassium 4.6 (3.5-5.1) mmol/L Chloride 104 (98-107) mmol/L Carbon Dioxide 23 (22-30) mmol/L BUN 36 H (9-20) mg/dL Creatinine 1.77 H (0.66-1.25) mg/dL Glucose 149 H (74-99) mg/dL Calcium 9.2 (8.4-10.2) mg/dL Adrenal panel 06/16/16 Range/Units 05:34 Sodium 138 (137-145) mmol/L Potassium 4.6 (3.5-5.1) mmol/L Chloride 104 (98-107) mmol/L Carbon Dioxide 23 (22-30) mmol/L BUN 36 H (9-20) mg/dL Creatinine 1.77 H (0.66-1.25) mg/dL Glucose 149 H (74-99) mg/dL Calcium 9.2 (8.4-10.2) mg/dL - Imaging Chest x-ray: image reviewed CT scan - chest: image reviewed Assessment and Plan (1) History of pulmonary embolism Status: Acute (2) History of DVT (deep vein thrombosis) Status: Acute (3) History of atrial fibrillation Status: Acute (4) Hemoptysis Status: Acute Plan: The patient was seen and examined in the ER with Dr. Harrison. All diagnostics and labs were reviewed. Discussion was had with the patient and daughter at the bedside regarding the need for diagnostic bronchoscopy which will be completed today. Treatment options including interventional radiology embolectomy as well as surgical lobectomy were discussed with the patient dependent on where the source of bleeding is. We discussed with the patient that we will wait to make recommendations until the bronchoscopy is done to determine the best treatment course for him. All questions were answered. Both the patient and the daughter were in agreement with the plan. Further recommendations will follow based on results of the bronchoscopy. Thank you for this consult. We look forward to working with you in the care of your patient. Time with Patient: Greater than 30 <Alonzo Harrison - Last Filed: 06/17/16 13:31> Surgical - Exam Vital Signs Temp Pulse Resp BP Pulse Ox 97.7 F 72 18 109/58 96 06/15/16 10:32 06/15/16 10:32 06/15/16 10:32 06/15/16 10:32 06/15/16 10:32 Results - Labs 06/17/16 07:48 06/17/16 07:48 Abnormal Lab Results - Last 24 Hours (Table) 06/17/16 06/17/16 Range/Units 07:48 07:48 RBC 3.07 L (4.30-5.90) m/uL Hgb 10.0 L (13.0-17.5) gm/dL Hct 29.5 L (39.0-53.0) % Plt Count 138 L (150-450) k/uL Lymphocytes # 0.5 L (1.0-4.8) k/uL BUN 44 H (9-20) mg/dL Creatinine 1.80 H (0.66-1.25) mg/dL Glucose 128 H (74-99) mg/dL Magnesium 2.4 H (1.6-2.3) mg/dL Microbiology - Last 24 Hours (Table) 06/16/16 10:00 Gram Stain - Preliminary Bronchial Washings - Right Bronchial Washings Culture - Preliminary Presumptive Staph aureus 06/16/16 10:00 Acid Fast Bacilli Smear - Final Bronchial Washings - Right Acid Fast Bacilli Culture - Preliminary 06/15/16 18:22 Urine Culture - Final Urine,Voided 06/16/16 10:00 Fungal Culture - Preliminary Bronchial Washings - Right Diabetes panel 06/17/16 Range/Units 07:48 Sodium 137 (137-145) mmol/L Potassium 4.5 (3.5-5.1) mmol/L Chloride 105 (98-107) mmol/L Carbon Dioxide 23 (22-30) mmol/L BUN 44 H (9-20) mg/dL Creatinine 1.80 H (0.66-1.25) mg/dL Glucose 128 H (74-99) mg/dL Calcium 9.2 (8.4-10.2) mg/dL Calcium panel 06/17/16 Range/Units 07:48 Calcium 9.2 (8.4-10.2) mg/dL Phosphorus 3.1 (2.5-4.5) mg/dL Pituitary panel 06/17/16 Range/Units 07:48 Sodium 137 (137-145) mmol/L Potassium 4.5 (3.5-5.1) mmol/L Chloride 105 (98-107) mmol/L Carbon Dioxide 23 (22-30) mmol/L BUN 44 H (9-20) mg/dL Creatinine 1.80 H (0.66-1.25) mg/dL Glucose 128 H (74-99) mg/dL Calcium 9.2 (8.4-10.2) mg/dL Adrenal panel 06/17/16 Range/Units 07:48 Sodium 137 (137-145) mmol/L Potassium 4.5 (3.5-5.1) mmol/L Chloride 105 (98-107) mmol/L Carbon Dioxide 23 (22-30) mmol/L BUN 44 H (9-20) mg/dL Creatinine 1.80 H (0.66-1.25) mg/dL Glucose 128 H (74-99) mg/dL Calcium 9.2 (8.4-10.2) mg/dL Assessment and Plan Plan: The patient was seen and examined. He reports ongoing hemoptysis of small amounts of blood over the past several weeks. He has undergone bronchoscopy in the past without need for intervention. He will undergo repeat bronchoscopy today by the pulmonary service. He remains hemodynamically stable on nasal cannula for now. Additional recommendations will be made based on findings of the bronchoscopy.
[2016-06-16] MEDS: PANTOPRAZOLE 40 MG/10 ML VIAL IV SCH (13:37)
--- NOTE | 2016-06-16 15:10 | P.CRDCN ---
History of Present Illness Consult date: 06/16/16 History of present illness: This is a 80-year-old gentleman with history of cardiomyopathy, cardiac arrhythmia in the form of M AT/atrial fibrillation and also history of DVT and pulmonary embolism. Patient came to the hospital with complaints of cough and hemoptysis. Recent chest x-ray showed right upper lobe pneumonia .patient had a bronchoscopy by Dr. Bae apparently no definite source of bleeding were noted. His Xarelto was reversed before the procedure. Dr. Bae was feeling that patient may not be a candidate for long-term anticoagulation because of recurrent hemoptysis. Patient denies any chest pain. Doesn't complain of any significant shortness of breath. He denied any fever. There is a dense right upper lobe pneumonia. I'm wondering if that has any connection to the hemoptysis. If hemoptysis is related to the pneumonia and if hemoptysis stops after treating pneumonia, it may be possible for him to go back on anti- cognition therapy. I discussed this options with the patient and his son. He doesn't seem to be in acute distress at this time. His rhythm is multifocal atrial rhythm at this time Review of Systems As per the chart Past Medical History Past Medical History: Atrial Fibrillation, Coronary Artery Disease (CAD), Heart Failure, COPD, CVA/TIA, Deep Vein Thrombosis (DVT), GERD/Reflux, GI Bleed, Hyperlipidemia, Memory Impairment, Myocardial Infarction ([place]), Pneumonia, Prostate Disorder, Renal Disease, Vascular Disorder Additional Past Medical History / Comment(s): Pt has had streaks of blood in sputum for the past couple months, hemoptysis with lung abscess-he had a bronchoscopy with BAL 05/19/16, bollous lung disease, AAA, UNK SIZE, LT Leg DVT, renal disease stage II, hematuria, BPH, diverticulosis. Varicosities Richard LEGS, EDEMA FEET, HX FX LT Foot, LT Elbow yrs ago, Freq Gas, 11/27/14 - ADM TO [facility] W / SEV TIA'S, SOME MEMORY CHANGES NOTED. Last Myocardial Infarction Date:: unkn History of Any Multi-Drug Resistant Organisms: MRSA Date of last positivie culture/infection: 2013 MDRO Source:: R leg Past Surgical History: Heart Catheterization, Orthopedic Surgery Additional Past Surgical History / Comment(s): 05/19/16 bronchoscopy with BAL, 2012 Colonoscopy-nl. 2008 cardiac cath-nl. RT Shoulder Bicep Tendon repair. ORIF LT elbow 2007. RT knee arthroscopy. Nasophaygeal Larynoscopy, 2014 Broncoscopy (Bronch was pos for e-coli). 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 Smoking Status: Former smoker Past Alcohol Use History: None Reported Additional Past Alcohol Use History / Comment(s): HX Smoking cigarettes, pipe and cigars . He smoked between 1/2-1ppd for 20-30 yrs. He quit smoking in 2001 Past Drug Use History: None Reported - Past Family History Father Family Medical History: Cancer Additional Family Medical History / Comment(s): Father was an alcoholic, FROM PROSTATE CANCER at the age of 87yrs. Mother Family Medical History: Cancer Additional Family Medical History / Comment(s): UTERINE CANCER Medications and Allergies Home Medications Medication Instructions Recorded Confirmed Type Rivaroxaban [Xarelto] 20 mg PO DAILY 12/17/13 06/15/16 History Omeprazole [PriLOSEC] 20 mg PO QAM 11/27/14 06/15/16 History Acetaminophen Tab [Tylenol Tab] 1,000 mg PO Q6HR PRN 12/23/14 06/15/16 History Ferrous Sulfate [Feosol] 325 mg PO DAILY 12/23/14 06/15/16 History Carvedilol [Coreg] 6.25 mg PO BID 05/14/16 06/15/16 History Doxazosin [Cardura] 2 mg PO HS 05/14/16 06/15/16 History Finasteride [Proscar] 5 mg PO QAM 05/14/16 06/15/16 History Potassium Chloride [Klor-Con 10] 10 meq PO DAILY 05/14/16 06/15/16 History Aspirin EC [Ecotrin Low Dose] 81 mg PO DAILY 06/15/16 06/15/16 History Allergies Allergy/AdvReac Type Severity Reaction Status Date / Time milk Allergy Abdominal Verified 06/15/16 11:25 Pain, GAS,freq urination Sulfa (Sulfonamide Allergy Rash/Hives Verified 06/15/16 11:25 Antibiotics) wheat Allergy Rash/Hives,freq Verified 06/15/16 11:25 urinat but states eats a little bit of wheat EGG WHITES Allergy Rash/Hives,freq Uncoded 05/19/16 12:08 urination Physical Exam Vitals: Vital Signs Temp Pulse Pulse Resp BP BP Pulse Ox 06/16/16 13:33 97.6 F 79 18 131/81 95 06/16/16 11:54 97.8 F 64 16 140/70 96 06/16/16 09:59 70 18 125/89 94 L 06/16/16 09:02 97.9 F 80 18 130/79 94 L 06/16/16 07:27 98.2 F 75 16 135/69 95 06/16/16 07:18 76 06/16/16 07:00 75 06/16/16 05:42 73 18 135/79 94 L 06/16/16 03:36 68 18 127/61 94 L 06/16/16 02:07 62 18 108/58 91 L 06/16/16 00:00 76 18 94 L 06/15/16 21:28 78 06/15/16 21:15 74 06/15/16 21:00 99.9 F H 76 18 118/66 94 L 06/15/16 18:57 100.7 F H 85 20 114/55 92 L 06/15/16 18:02 86 18 122/65 93 L 06/15/16 17:12 89 18 135/73 96 06/15/16 15:56 83 18 127/72 95 Intake and Output 06/16/16 06/16/16 06/16/16 06:59 14:59 22:59 Intake Total 37.5 200 Output Total 300 Balance -262.5 200 Intake: IV 200 Intake, IV Titration 37.5 Amount Piperacillin-Tazobactam 3 37.5 .375 gm In Dextrose/Water 1 50ml.bag @ 12.5 mls/hr IVPB Q8H [facility] Rx#: [id number] Output: Urine 300 Other: Voiding Method Urinal GENERAL EXAM: Patient is alert and oriented and doesn't appear to be in any acute distress HEENT: Normocephalic. Normal reaction of pupils, equal size, normal range of extraocular motion. No erythema or exudates in the throat. NECK: No masses, no nuchal rigidity. CHEST: No chest wall deformity. LUNGS: Diminished air entry and scattered rhonchi. HEART: S1 and S2 normal with no audible mumurs or gallops. Regular rhythm, femorals equal on both sides.. ABDOMEN: No hepatosplenomegaly, normal bowel sounds, no guarding or rigidity. SKIN: No rashes CENTRAL NERVOUS SYSTEM: No focal deficits. EXTREMITIES: No cyanosis, clubbing or edema. Results 06/16/16 05:34 06/16/16 05:34 CBC 06/15/16 06/15/16 06/16/16 Range/Units 15:06 19:55 05:34 WBC 7.2 6.2 4.8 (3.8-10.6) k/uL RBC 3.07 L 2.76 L 3.03 L (4.30-5.90) m/uL Hgb 9.8 L 9.3 L 9.9 L (13.0-17.5) gm/dL Hct 30.2 L 26.9 L 29.3 L (39.0-53.0) % Plt Count 120 L 129 L 133 L (150-450) k/uL Comprehensive Metabolic Panel 06/16/16 Range/Units 05:34 Sodium 138 (137-145) mmol/L Potassium 4.6 (3.5-5.1) mmol/L Chloride 104 (98-107) mmol/L Carbon Dioxide 23 (22-30) mmol/L BUN 36 H (9-20) mg/dL Creatinine 1.77 H (0.66-1.25) mg/dL Glucose 149 H (74-99) mg/dL Calcium 9.2 (8.4-10.2) mg/dL Current Medications Generic Name Dose Route Start Last Admin Trade Name Freq PRN Reason Stop Dose Admin Budesonide 0.5 mg 06/15/16 20:00 06/16/16 07:00 Pulmicort INHALATION 0.5 mg RT-BID BRENDA Administration Codeine Sulfate 30 mg 06/15/16 16:00 06/16/16 09:00 Codeine PO 30 mg Q8HR BRENDA Administration Piperacillin/Tazobactam/ 50 mls @ 12.5 mls/hr 06/15/16 22:00 06/16/16 14:26 Dextrose 3.375 gm/ IV Solution IVPB 12.5 mls/hr Q8H BRENDA Administration Vancomycin HCl 1,500 mg/ 250 mls @ 125 mls/hr 06/16/16 09:00 06/16/16 11:41 Sodium Chloride IVPB 125 mls/hr Q24HR BRENDA Administration Acetaminophen 1,000 mg/ IV 100 mls @ 400 mls/hr 06/15/16 19:12 Solution IVPB 06/16/16 19:13 Q6HR PRN Fever Ipratropium [place] 0.5 mg 06/15/16 20:00 06/16/16 11:01 Atrovent Nebulized INHALATION Not Given RT-QID BRENDA Levalbuterol HCl 1.25 mg 06/15/16 20:00 06/16/16 11:01 Xopenex Nebulized (Conc) INHALATION Not Given RT-QID [facility] Methylprednisolone Sodium Succinate 40 mg 06/15/16 16:00 06/16/16 08:22 Solu-Medrol IV 40 mg Q8HR BRENDA Administration Naloxone HCl 0.2 mg 06/15/16 13:28 Narcan IV Q2M PRN Opioid Reversal Pantoprazole Sodium 40 mg 06/15/16 16:30 06/16/16 13:37 Protonix IV 40 mg DAILY BRENDA Administration Intake and Output 06/16/16 06/16/16 06/16/16 06:59 14:59 22:59 Intake Total 37.5 200 Output Total 300 Balance -262.5 200 Intake: IV 200 Intake, IV Titration 37.5 Amount Piperacillin-Tazobactam 3 37.5 .375 gm In Dextrose/Water 1 50ml.bag @ 12.5 mls/hr IVPB Q8H [facility] Rx#: [id number] Output: Urine 300 Other: Voiding Method Urinal 06/16/16 05:34 06/16/16 05:34 EKG Interpretations (text) Multifocal atrial rhythm Assessment and Plan (1) History of DVT (deep vein thrombosis) Status: Acute (2) History of atrial fibrillation Status: Acute (3) History of pulmonary embolism Status: Acute (4) Aneurysm of thoracic aorta Status: Acute (5) Esophageal mass Status: Acute (6) Hemoptysis Status: Acute (7) TIA (transient ischemic attack) Status: Acute Plan: It's okay to hold anticoagulations at this time. The right upper lobe infiltrate/pneumonia needs to be investigated. The pain upon the final diagnosis and its relationship to hemoptysis, further recommendations will be made. The patient is currently in multifocal atrial tachycardia. Further recommendation to follow. We'll also obtain an echocardiogram while patient is in the hospital.
--- NOTE | 2016-06-16 16:16 | PN ---
CRITICAL CARE PROGRESS NOTE: DATE OF SERVICE: 06/16/2016 Patient was seen evaluated, examined in the emergency department where the patient is being held as ICU extension for extensive hemoptysis. Patient has lost about 400 mL of bright red blood and active hemoptysis due coagulopathy related to his Xarelto. Patient has been given ( ) and she has ( ) finished the infusion. Patient is breathing more comfortably. The severity of hemoptysis is slightly better now, but still having some streaks of blood. The patient is scheduled for bronchoscopy for location of the hemoptysis and bleeding point. He is breathing okay. Does have mild degree of shortness of breath, intermittent cough which is being suppressed with round the clock codeine. Care plan discussed with the primary service at length. Patient also being treated with broad-spectrum antibiotics in the form of IV Zosyn and vancomycin as well as being given breathing treatments and steroids. His last set of vitals include blood pressure is 125/89, respiratory rate 16, pulse 70, temperature 98, saturation 94% on 2 liters oxygen. HEENT EXAMINATION: Otherwise unremarkable. NECK: Supple without any lymphadenopathy, jugular venous distention or carotid bruit. LUNGS: Bilateral good air entry is present with decreased air entry at the bases. Some bronchial breath sounds in the right upper lobe has been noted. ABDOMEN: Soft. No rebound or rigidity. CARDIOVASCULAR: Heart regular rate and rhythm. EXTREMITIES: +1 peripheral pulses. NEUROLOGICAL EXAMINATION: Otherwise, awake and alert. No focal neurological deficits. LABS: Reviewed. The white cell count is 4800, hemoglobin 9.9, hematocrit 29, platelet count of 133. Sodium is 130, potassium 4.6. BUN and creatinine are 36 and 1.77, which is overall stable. Glucose is 149. Urinalysis is unremarkable. Culture, including urine culture results and reports are pending. Chest x-ray performed today reviewed. There is a dense infiltrate on the right side is present which has progressed. Some infiltrate in the left lower lobe has been noted which are new. IMPRESSION: 1. Acute pneumonia, bilateral, more so on the right side compared to the left side. 2. Hemoptysis related to coagulopathy associated with Xarelto status post ( ) appears to be settling down. The patient is being planned for bronchoscopy later on. 3. History of intermittent streaks of blood in the past. 4. History of recurrent deep venous thrombosis pulmonary embolism. Chronic atrial fibrillation, intermittent paroxysmal in nature with a history of transient ischemic attack and strokes in the past. 5. Severe chronic obstructive pulmonary disease, emphysema. Plan and recommendation is to continue broad-spectrum antibiotics for mixed bacterial gram-negative pneumonia. Plan is for bronchoscopy later on today and continue supportive care. 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 Will continue supportive care. Follow clinical course closely. Renal functions have been stable. Further recommendations pending. We will maintain the ICU status for now pending further findings on the bronchoscopy. Critical care time spent 35 minutes.
--- NOTE | 2016-06-16 16:34 | HP ---
DATE OF ADMISSION: 06/15/2016 CHIEF COMPLAINT: Hemoptysis. HISTORY OF PRESENT ILLNESS: This is another admission for this 80-year-old white male who has a long-standing history of COPD. He has also had pulmonary emboli and he is on Xarelto 20 mg a day. He has coughed up blood before. He started coughing up large amounts of bright red blood without any significant chest pain. He was short of breath. He came to the emergency room, where he was found to have right upper lobe opacification. REVIEW OF SYSTEMS: He has had no headaches or significant chest pain, fever, chills, orthopnea, PND, etc. Past medical history, family history, and personal and social histories reveal that he is ALLERGIC TO ERYTHROMYCIN, ( ) and SULFA. He is on: 1. Finasteride 5 mg once a day. 2. Pepcid 20 mg twice daily. 3. Omeprazole 20 mg once a day. 4. Carafate one 4 times a day. 5. Metoprolol 25 mg twice a day. 6. KCl 10 mEq once a day. 7. Xarelto 20 mg once a day. 8. Potassium 10 mEq once a day. 9. Doxazosin 1 mg at bedtime. 10. Aspirin 325 once a day. 11. Iron 325 once a day. The remainder of his past medical history is unchanged. He does have a problem with reflux. He has had difficulties with congestive heart failure. He also has renal failure. He does not smoke. PHYSICAL EXAMINATION: Blood pressure is 112/72 with a pulse of 84, respirations of 36, and he is afebrile. In general he appeared to be in no acute distress. Skin color was normal. Skin was warm and dry. Lymph nodes are not enlarged. Head, ears, eyes, nose, mouth and throat were normal. Chest demonstrated increased AP diameter. There were wheezes, rales and rhonchi throughout both lung sue anteriorly and posteriorly. Cardiac exam demonstrated normal sinus rhythm with no murmurs or extra sounds. The abdomen is soft and nontender without any visceromegaly or masses. Extremities demonstrated chronic venous dermatitis and skin changes. Neurologically he is intact. IMPRESSION: 1. Hemoptysis. 2. Right upper lobe consolidation. 3. History of pulmonary emboli. 4. Venous insufficiency of lower extremities. PLAN: 1. Bed rest. 2. IV fluids. 3. Updrafts. 4. Pulmonology consult for a probable bronchoscopy. 5. Withhold anticoagulants.
--- NOTE | 2016-06-16 16:51 | PN ---
CHIEF COMPLAINT: Hemoptysis and right upper lobe opacification. HISTORY OF PRESENT ILLNESS: This gentleman is going for a bronchoscopy today. PHYSICAL EXAMINATION: Unchanged. IMPRESSION: 1. Consolidation in right upper lobe with hemoptysis. 2. Chronic obstructive pulmonary disease. 3. History of pulmonary emboli. 4. Arrhythmia. PLAN: Bronchoscopy this morning.
--- NOTE | 2016-06-16 21:37 | PCN ---
DATE OF PROCEDURE: PROCEDURES: 1. Bronchoscopy. 2. Bronchoalveolar lavage. INDICATIONS: 1. Hemoptysis. 2. Bilateral pneumonia, likely mixed bacteria, Gram-negative. 3. History of DVT in the past. OPERATIVE DETAIL: Patient was prepared in the usual fashion and procedure was explained to the patient at length. Fiberoptic bronchoscope was passed through the right naris. During passage patient was noted to have a small hematoma in the upper airway as well as close to the vocal cords. Upper airway ( ) appeared to be in the posterior pharyngeal area. Some old blood was seen in paralaryngeal area, which was suctioned and cleaned. Tip of the scope was passed beyond the vocal cords into the trachea. Mild erythema and edema was seen, more so on the right side compared to the left side. Some old blood was noted in the right side as well; however, no active bleeding was seen. The area was suctioned and cleaned. No source of bleeding identified. Right upper lobe, right middle lobe, right lower lobe were inspected along with subsegments. Of note that the mucosal erythema and edema was absent, predominantly on the right lower lobe but slightly more pronounced in the upper lobes without any source of bleeding. Tip of the scope was passed on the left side. Left upper lobe, lingula and left lower lobe were inspected. No endobronchial mass or lesion was identified. Mucosal edema again was noted in bronchus intermedius, but no active source of bleeding was identified. The area was flushed and cleaned. After the lavage BAL was performed from the left lower lobe, right upper lobe. Patient tolerated the procedure well. No complications noted. No active source of bleeding identified. Will likely downgrade patient from ICU status to stepdown unit. Will start p.o.; however, will continue to hold Xarelto for indefinite period of time, pending further discussion with the patient and family.
[2016-06-17] MEDS: PIPERACILLIN-TAZOBACTAM 3.375 GM in DEXTROSE/WATER 1 50ML.BAG IVPB SCH ×3 (05:09→22:10)
[2016-06-17] MEDS: LEVALBUTEROL NEB (CONC) 1.25 MG/0.5 ML AMP INHALATION SCH ×3 (07:06→16:14)
[2016-06-17] MEDS: BUDESONIDE 0.5 MG/2 ML NEBU INHALATION SCH ×2 (07:06→20:19)
[2016-06-17] MEDS: IPRATROPIUM 0.5 MG/2.5 ML NEBU INHALATION SCH ×3 (07:06→16:14)
[2016-06-17 08:14] LABS: Basophils % (A) 0 %; CH 32.8; CHCM 34.3; Eosinophils % (A) 0 %; HCT 29.5 % (39.0-53.0); HDW 2.83; Luc # (Auto) 0.07; Luc % (Auto) 1; Lymphocytes # (A) 0.5 k/uL (1.0-4.8); Lymphocytes % (A) 6 %; MCH 32.5 pg (25.0-35.0); MCHC 33.9 g/dL (31.0-37.0); MCV 95.9 fL (80.0-100.0); Mean Platelet Volume 6.8; Monocytes # (A) 0.4 k/uL (0-1.0); Monocytes % (A) 4 %; Neutrophils # (A) 7.7 k/uL (1.3-7.7); Neutrophils % (A) 89 %; RBC 3.07 m/uL (4.30-5.90); RDW 12.8 % (11.5-15.5); WBC 8.7 k/uL (3.8-10.6); WBC (Perox) 9.14
[2016-06-17 08:32] LABS: Calcium 9.2 mg/dL (8.4-10.2); Magnesium 2.4 mg/dL (1.6-2.3); Phosphorous 3.1 mg/dL (2.5-4.5); Potassium 4.5 mmol/L (3.5-5.1)
[2016-06-17] MEDS: methylPREDNISolone SOD SUCCI 40 MG/ML 1 ML VIAL IV SCH ×3 (08:37→22:10)
[2016-06-17] MEDS: VANCOMYCIN 1,500 MG in SODIUM CHLORIDE 0.9% 250 ML IVPB SCH (08:38)
[2016-06-17] MEDS: PANTOPRAZOLE 40 MG/10 ML VIAL IV SCH (08:38)
[2016-06-17] MEDS: CODEINE 30 MG TAB PO SCH ×2 (09:39→17:02)
--- NOTE | 2016-06-17 10:23 | XR ---
EXAMINATION TYPE: XR chest 1V DATE OF EXAM: 06/17/2016 9:37 AM COMPARISON: 06/16/2016 INDICATION: Hemoptysis TECHNIQUE: Single frontal view of the chest is obtained. FINDINGS: The heart size is normal. The pulmonary vasculature is normal. Right upper lobe consolidation is evident. This may have slight improvement from comparison. Mild inf iltrates at the left base. IMPRESSION: 1. Right upper lobe consolidation with minimal infiltrate at the left base. Correlate for pneumonia. Continued follow-up to clearing is recommended.
--- NOTE | 2016-06-17 11:07 | ECHOF ---
Referral Reason:Chest pain and cardiomyopathy MEASUREMENTS -------- HEIGHT: 193.0 cm WEIGHT: 93.4 kg BP: 138/76 IVSd: 0.9 cm (0.6 - 1.1) LVIDd: 4.5 cm (3.9 - 5.3) LVPWd: 1.0 cm (0.6 - 1.1) IVSs: 1.9 cm LVIDs: 2.9 cm LVPWs: 1.6 cm Ao Diam: 4.1 cm (2.0 - 3.7) AV Cusp: 2.2 cm (1.5 - 2.6) LA Diam: 3.5 cm (2.7 - 3.8) MV EXCURSION: 15.228 mm (> 18.000) MV EF SLOPE: 79 mm/s (70 - 150) EPSS: 0.9 cm MV E Santhosh: 0.69 m/s MV DecT: 212 ms MV A Santhosh: 0.88 m/s MV E/A Ratio: 0.79 AV maxP.56 mmHg AV meanP.51 mmHg AR PHT: 184 ms RAP: 5.00 mmHg RVSP: 38.93 mmHg FINDINGS -------- Sinus rhythm with extra systolic beats. This was a technically adequate study. Left ventricular wall thickness is normal. Overall left ventricular systolic function is low-normal with, an EF between 50 - 55 %. The right ventricle is normal in size and function. The left atrium is normal in size. The right atrium is normal in size. Aortic valve is trileaflet and is mildly thickened. Trace amount of aortic regurgitation. There is mild aortic stenosis present. Peak/mean gradient across the Aortic Valve is 16.56mmHg / 7.51mmHg. The mitral valve leaflets are mildly thickened. There is trace mitral regurgitation. Mild tricuspid regurgitation present. There is mild pulmonary hypertension. The right ventricular systolic pressure, as measured by Doppler, is 38.93mmHg. Pulmonic valve appears structurally normal. The aortic root is mildy dilated. The pericardium is normal. CONCLUSIONS -------- 1. Sinus rhythm with extra systolic beats. 2. There is mild aortic stenosis present. 3. Peak/mean gradient across the Aortic Valve is 16.56mmHg / 7.51mmHg. 4. The mitral valve leaflets are mildly thickened. 5. There is trace mitral regurgitation. 6. Mild tricuspid regurgitation present. 7. There is mild pulmonary hypertension. 8. The right ventricular systolic pressure, as measured by Doppler, is 38.93mmHg. 9. Pulmonic valve appears structurally normal. 10. The aortic root is mildy dilated. 11. The pericardium is normal. 12. This was a technically adequate study. 13. Left ventricular wall thickness is normal. 14. Overall left ventricular systolic function is low-normal with, an EF between 50 - 55 %. 15. The right ventricle is normal in size and function. 16. The left atrium is normal in size. 17. The right atrium is normal in size. 18. Aortic valve is trileaflet and is mildly thickened. 19. Trace amount of aortic regurgitation. DIRECTOR OF GRADUATE ADMISSIONS: Edelmira Horton RDCS
--- NOTE | 2016-06-17 11:07 | P.PN ---
<Edelmira Christine - Last Filed: 06/17/16 11:01> Subjective Principal diagnosis: Frequent, recurrent hemoptysis. Patient had bronchoscopy done yesterday by Dr. Bae. He reports no more hemoptysis. States he is tolerating diet, and looking forward to going home. Objective - Vital Signs Vital signs: Vital Signs Temp 97.7 F 06/17/16 07:00 Pulse 76 06/17/16 07:25 Resp 16 06/17/16 07:00 BP 145/67 06/17/16 07:00 Pulse Ox 92 L 06/17/16 07:00 Intake & Output 06/16/16 06/17/16 06/17/16 18:59 06:59 18:59 Intake Total 200 50 Output Total 0 Balance 200 50 Weight 93.44 kg Intake: IV 200 50 Piperacillin-Tazobactam 3 50 .375 gm In Dextrose/Water 1 50ml.bag @ 12.5 mls/hr IVPB Q8H [facility] Rx#: [id number] Output: Urine 0 Other: Voiding Method Urinal Urinal # Voids 2 - Constitutional General appearance: Present: cooperative, no acute distress - Respiratory Details: Lungs sounds diminished bilaterally. Respirations even, nonlabored. Currently on room air. - Cardiovascular Details: S1, S2 present. Regular rate and rhythm. No edema present. - Gastrointestinal Gastrointestinal Comment(s): Abdomen soft, nontender, nondistended. Active bowel sounds 4 quadrants. Tolerating diet. - Genitourinary Genitourinary Comment(s): Voiding clear, yellow urine per urinal. - Musculoskeletal Musculoskeletal: Present: strength equal bilaterally - Psychiatric Psychiatric: Present: A&O x's 3, appropriate affect, intact judgment & insight - Allied health notes Allied health notes reviewed: nursing - Labs CBC & Chem 7: 06/17/16 07:48 06/17/16 07:48 Labs: Abnormal Lab Results - Last 24 Hours (Table) 06/17/16 06/17/16 Range/Units 07:48 07:48 RBC 3.07 L (4.30-5.90) m/uL Hgb 10.0 L (13.0-17.5) gm/dL Hct 29.5 L (39.0-53.0) % Plt Count 138 L (150-450) k/uL Lymphocytes # 0.5 L (1.0-4.8) k/uL BUN 44 H (9-20) mg/dL Creatinine 1.80 H (0.66-1.25) mg/dL Glucose 128 H (74-99) mg/dL Magnesium 2.4 H (1.6-2.3) mg/dL Microbiology - Last 24 Hours (Table) 06/16/16 10:00 Acid Fast Bacilli Smear - Final Bronchial Washings - Right Acid Fast Bacilli Culture - Preliminary 06/16/16 10:00 Gram Stain - Preliminary Bronchial Washings - Right Bronchial Washings Culture - Preliminary 06/15/16 18:22 Urine Culture - Final Urine,Voided 06/16/16 10:00 Fungal Culture - Preliminary Bronchial Washings - Right - Imaging and Cardiology Chest x-ray: report reviewed, image reviewed Assessment and Plan (1) History of pulmonary embolism Status: Acute (2) History of DVT (deep vein thrombosis) Status: Acute (3) History of atrial fibrillation Status: Acute (4) Hemoptysis Status: Acute Plan: 1. Continue medical management per primary service. 2. Results of bronchial washing pending, will review when available. 3. As the patient's hemoptysis has resolved and he is tolerating a diet there is likely no surgical intervention from our standpoint. Will see patient as needed. Time with Patient: Greater than 30 <Alonzo Harrison - Last Filed: 06/22/16 12:09> Objective - Vital Signs Vital signs: Vital Signs Temp 97.9 F 06/21/16 07:00 Pulse 82 06/21/16 11:09 Resp 16 06/21/16 07:00 BP 124/77 06/21/16 07:00 Pulse Ox 100 06/21/16 07:00 - Labs CBC & Chem 7: 06/21/16 07:42 06/21/16 07:42
--- NOTE | 2016-06-17 11:10 | CDI ---
In responding to this query, please exercise your independent professional judgment. The [facility] Coding Staff and Clinical Documentation Specialists appreciate your assistance in clarifying documentation, maintaining compliance with coding guidelines, accurately documenting patients condition and capturing severity of illness. The fact that a question is asked does not imply that any particular answer is desired or expected. Communication forms are a method of clarifying documentation and are not made part of the Legal Health Record. Thank you in advance for your clarification. Last Revision, December 2014 Lucas Jason [address] [facility] [place] [address] Documentation Clarification Form Date: 06/17/2016 10:48:00 AM From: Viri Patel RN, CCDS Admit Date: 06/15/2016 1:32:00 PM Patient Name: Kun Bear Visit Number: [id number] Dr. Remington Underwood/Christal Rooney CNP Pneumonia was documented in the pulmonary consults and progress notes. History/Risk Factors: Chronic hemoptysis, frequent bronchoscopies, COPD Clinical Indicators: 06/15 H&P: "80-year-old white male who has a long-standing history of COPD. He has also had pulmonary emboli and he is on Xarelto 20 mg a day. He has coughed up blood before. He started coughing up large amounts of bright red blood without any significant chest pain. He was short of breath. He came to the emergency room, where he was found to have right upper lobe opacification.1. Hemoptysis. 2. Right upper lobe consolidation." 06/15 Pulmonary Consult: Chest x-ray reveals a right upper lobe pneumonia and the patient has been started on antibiotics for that as well. Hemoptysis. Right upper lobe pneumonia 06/16 Pulmonary Consult: "Acute pneumonia, bilateral, more so on the right side compared to the left side. Plan and recommendation is to continue broad- spectrum antibiotics for mixed bacterial gram-negative pneumonia. Plan is for bronchoscopy." WBC: WNL Left shift: WNL 06/17 CXR:"Right upper lobe consolidation with minimal infiltrate at the left base. Correlate for pneumonia. 06/16 Pulmonary Lung/Breathing assessment: LUNGS: Bilateral good air entry is present with decreased air entry at the bases. Some bronchial breath sounds in the right upper lobe has been noted. Treatment: Antibiotics: IV Zosyn 3.375 GM IVPB Q 8 hrs, IV Vanco 1500mg IVPB Q 24 hrs O2: RA to 2L nasal cannula Breathing TX: Pulmicort .5mg BID, Xopenex 1.25mg QID In order to capture the severity of condition, please clarify if the condition signifies and you are treating for: Aspiration Pneumonia, identify if: Due to solids or liquids Bacterial Pneumonia, specify causal organism (if known) Gram Negative Pneumonia Due to Strep Due to Staph Due to E. coli Other bacteria (specify) Viral Pneumonia, specify casual organism (if known) Right Upper Lobe Consolidation without Pneumonia Pneumonia Ruled Out Unable to determine Link any associated conditions to the pneumonia: Influenza with secondary gram negative pneumonia Sepsis due to pneumonia Acute respiratory failure due to pneumonia Other, please specify Please document in your progress notes and discharge summary in order to capture severity of illness and risk of mortality. Include clinical findings that support your diagnosis. FYI: Press F11 to launch patient chart. Place X here if this finding has no clinical significance, is not applicable or if you are not able to provide any additional documentation. MTDD
--- NOTE | 2016-06-17 12:54 | PN ---
CHIEF COMPLAINT: Hemoptysis and right upper lobe pneumonitis. HISTORY OF PRESENT ILLNESS: The gentleman is doing well. He is having no pain, shortness of breath, hemoptysis, etc. PHYSICAL EXAM: Breath sounds are clear on both sides and cardiac exam is normal and the extremities are normal. IMPRESSION: 1. Hemoptysis. 2. Right upper lobe pneumonitis. PLAN: Possibly home today and he will be off of blood thinners altogether.
--- NOTE | 2016-06-17 14:11 | P.PN ---
Subjective -80year-old gentleman being seen on rounds this morning. Patient states breathing feels improved. Patient denies coughing. CONSULTATION RECOMMENDATIONS NOTED APPRECIATED AND REVIEWED This is an 80-year-old gentleman who has a history of atrial fibrillation and a pulmonary emboli presented to the emergency room on the day of admission with patient stated that the last month he would have intermittent episodes where he coughed up blood. Patient stated the symptoms increased over the last couple days. He stated he needed to come to the emergency room because of the frequent cough where he was coughing up blood. Patient has been on Xarelto for atrial fibrillation. Patient has had history of having multiple bronchoscopic is by pulmonary in the past. Patients being admitted and treated for right upper lobe pneumonia and has been started on IV broad-spectrum antibiotics. Patient did have a done on June 15 per pulmonology patient did have a lavage BAL of the left and lower lobe in the right upper lobe per pulmonology patients being treated for bilateral pneumonia likely mixed gram- negative Patient had an echocardiogram done on the it showed an EF between 55 and 50 % mild pulmonary hypertension and mild aortic stenosis Objective - Vital Signs Vital signs: Vital Signs Temp 97.7 F 06/17/16 07:00 Pulse 72 06/17/16 11:38 Resp 16 06/17/16 08:00 BP 145/67 06/17/16 07:00 Pulse Ox 92 L 06/17/16 07:00 Intake & Output 06/16/16 06/17/16 06/17/16 18:59 06:59 18:59 Intake Total 200 50 Output Total 0 Balance 200 50 Weight 93.44 kg Intake: IV 200 50 Piperacillin-Tazobactam 3 50 .375 gm In Dextrose/Water 1 50ml.bag @ 12.5 mls/hr IVPB Q8H [facility] Rx#: [id number] Output: Urine 0 Other: Voiding Method Urinal Urinal Urinal # Voids 2 - Exam Physical exam 80-year-old gentleman sitting up in bed no acute distress Lungs diminished at the bases upper airways bronchial breath sounds Heart S1-S2 audible and irregular Abdomen soft nontender Extremities no edema - Labs CBC & Chem 7: 06/17/16 07:48 06/17/16 07:48 Labs: Abnormal Lab Results - Last 24 Hours (Table) 06/17/16 06/17/16 Range/Units 07:48 07:48 RBC 3.07 L (4.30-5.90) m/uL Hgb 10.0 L (13.0-17.5) gm/dL Hct 29.5 L (39.0-53.0) % Plt Count 138 L (150-450) k/uL Lymphocytes # 0.5 L (1.0-4.8) k/uL BUN 44 H (9-20) mg/dL Creatinine 1.80 H (0.66-1.25) mg/dL Glucose 128 H (74-99) mg/dL Magnesium 2.4 H (1.6-2.3) mg/dL Microbiology - Last 24 Hours (Table) 06/16/16 10:00 Gram Stain - Preliminary Bronchial Washings - Right Bronchial Washings Culture - Preliminary Presumptive Staph aureus 06/16/16 10:00 Acid Fast Bacilli Smear - Final Bronchial Washings - Right Acid Fast Bacilli Culture - Preliminary 06/15/16 18:22 Urine Culture - Final Urine,Voided 06/16/16 10:00 Fungal Culture - Preliminary Bronchial Washings - Right Assessment and Plan Plan: Impression Present on admission shortness of breath suspect due to acute bilateral pneumonia gram-negative Chronic diastolic congestive heart failure compensated echocardiogram EF 50-55% Present on admission shortness of breath likely due to an acute exacerbation of COPD and emphysema Chronic renal failure stage III creatinine 1 0.8 Chronic paroxysmal atrial fibrillation on Xarelto current 12-lead EKG sinus rhythm Bronchoscopy with bronchial lavage done on June 15 noted small hematoma in the upper airway as well as close to the vocal cords suspect bleed from Xarelto History of transient ischemic attacks in the past Hemoptysis related to coagulopathy likely due to Xarelto 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 1 pack 30 year history Acute blood loss anemia multifactorial likely due to hemoptysis coagulopathy related to Xarelto therapy and bilateral acute pneumonia gram-negative Chronic debility Plan Continue respiratory treatments as ordered Solu-Medrol 40 IV every 8 monitor response Continue IV Zosyn and vancomycin as ordered Follow-up on fungal and acid-fast bacilli and bronchial washings DVT and GI prophylaxis Anticoagulation are on hold Further recommendations pending Resume home meds as appropriate Cardiology's recommendations reviewed the recommending treat the pneumonia and hemoptysis stops after treating it it's possible for the patient to go back on anticoagulation therapy The above dictated assessment and findings were discussed with dr abdalla . Impression and the plan of care have been dictated as directed. Christal Rooney nurse practitioner acting as a scribe for dr abdalla.
[2016-06-17 15:03] VITALS: BMI 23.8
--- NOTE | 2016-06-17 17:35 | P.PN ---
Subjective This is an 80-year-old male patient being evaluated and examined examined today in the intensive care unit. This patient came into the ER for significant hemoptysis he keeps coughing up blood. This patient is well-known to our office and has had multiple bronchoscopies. The patient frequently comes and with hemoptysis which is scant, however this has increased significantly over the last week. The patient is also on Xarelto, and has had previous PEs and DVTs.. The patient was given a dose of K Sentra to reverse Xarelto. Hemoglobin initially was 10.8 however the repeat at this evening is 9.8. Chest x-ray reveals a right upper lobe pneumonia and the patient has been started on antibiotics for that as well. Patient denies any fever or any abdominal pain, nausea, vomiting, diarrhea or constipation. Patient also denies any lightheadedness or dizziness, headaches or weakness. The patient went for bronchoscopy yesterday and has had scant to no hemoptysis. He states he is feeling significantly better with less shortness of breath. Objective - Vital Signs Vital signs: Vital Signs Temp 97.7 F 06/17/16 07:00 Pulse 72 06/17/16 11:38 Resp 16 06/17/16 08:00 BP 145/67 06/17/16 07:00 Pulse Ox 92 L 06/17/16 07:00 Intake & Output 06/16/16 06/17/16 06/17/16 18:59 06:59 18:59 Intake Total 200 50 Output Total 0 Balance 200 50 Weight 93.44 kg Intake: IV 200 50 Piperacillin-Tazobactam 3 50 .375 gm In Dextrose/Water 1 50ml.bag @ 12.5 mls/hr IVPB Q8H [facility] Rx#: [id number] Output: Urine 0 Other: Voiding Method Urinal Urinal Urinal # Voids 2 - Exam GENERAL EXAM: Alert, tired, comfortable in no apparent distress. HEAD: Normocephalic. EYES: Normal reaction of pupils, equal size. NOSE: Clear with pink turbinates. THROAT: No erythema or exudates. NECK: No masses, no JVD. CHEST: No chest wall deformity. LUNGS: Equal air entry, few scattered rhonchi noted throughout. CVS: S1 and S2 normal with no audible mumurs, regular rhythm. ABDOMEN: No hepatosplenomegaly, normal bowel sounds, no guarding or rigidity. EXTREMITIES: No edema noted, pedal pulses palpable. SKIN: No rashes CENTRAL NERVOUS SYSTEM: No focal deficits, tone is normal in all 4 extremities. - Labs CBC & Chem 7: 06/17/16 07:48 06/17/16 07:48 Labs: Abnormal Lab Results - Last 24 Hours (Table) 06/17/16 06/17/16 Range/Units 07:48 07:48 RBC 3.07 L (4.30-5.90) m/uL Hgb 10.0 L (13.0-17.5) gm/dL Hct 29.5 L (39.0-53.0) % Plt Count 138 L (150-450) k/uL Lymphocytes # 0.5 L (1.0-4.8) k/uL BUN 44 H (9-20) mg/dL Creatinine 1.80 H (0.66-1.25) mg/dL Glucose 128 H (74-99) mg/dL Magnesium 2.4 H (1.6-2.3) mg/dL Microbiology - Last 24 Hours (Table) 06/16/16 10:00 Gram Stain - Preliminary Bronchial Washings - Right Bronchial Washings Culture - Preliminary Presumptive Staph aureus 06/16/16 10:00 Acid Fast Bacilli Smear - Final Bronchial Washings - Right Acid Fast Bacilli Culture - Preliminary 06/15/16 18:22 Urine Culture - Final Urine,Voided 06/16/16 10:00 Fungal Culture - Preliminary Bronchial Washings - Right Assessment and Plan Plan: Assessment Hemoptysis Bilateral pneumonia, worse on the right compared to the left. Acute blood loss anemia Paroxysmal atrial fibrillation History of PE and DVTs Severe chronic obstructive pulmonary disease and emphysema Plan Patient can be cleared from pulmonary stand point for discharge tomorrow. Medications have been reviewed and will be continued. Cardio thoracic specialist for consult. Decrease steroids, also on codeine around the clock to suppress his cough and to minimize hemoptysis. Bronchoscopy results pending. Patient would benefit for one more day in the hospital for IV antibiotics. We will continue to monitor labs/results and adjust treatment as necessary. I performed an examination of the patient and discussed their management with the nurse practitioner. I have reviewed the nurse practitioner's note and agree with the documented findings and plan of care.
[2016-06-17] MEDS: IPRATROPIUM-ALBUTEROL 3 ML NEB INHALATION SCH (20:19)
[2016-06-18] MEDS: CODEINE 30 MG TAB PO SCH ×4 (00:03→23:59)
[2016-06-18] MEDS: PIPERACILLIN-TAZOBACTAM 3.375 GM in DEXTROSE/WATER 1 50ML.BAG IVPB SCH ×2 (05:35→15:49)
[2016-06-18] MEDS: methylPREDNISolone SOD SUCCI 40 MG/ML 1 ML VIAL IV SCH ×2 (07:56→20:36)
[2016-06-18] MEDS: PANTOPRAZOLE 40 MG/10 ML VIAL IV SCH (07:56)
[2016-06-18] MEDS: IPRATROPIUM-ALBUTEROL 3 ML NEB INHALATION SCH ×4 (07:57→19:54)
[2016-06-18] MEDS: BUDESONIDE 0.5 MG/2 ML NEBU INHALATION SCH ×2 (07:57→19:54)
[2016-06-18] MEDS ORDERED: VANCOMYCIN TROUGH DUE 1 EACH MISC MISCELLANE ONE (08:00)
[2016-06-18 08:51] LABS: Basophils % (A) 0 %; CH 32.4; CHCM 33.5; Calcium 9.5 mg/dL (8.4-10.2); Eosinophils % (A) 0 %; HCT 30.8 % (39.0-53.0); HDW 2.89; HGB 10.3 gm/dL (13.0-17.5); Luc # (Auto) 0.09; Luc % (Auto) 1; Lymphocytes # (A) 0.6 k/uL (1.0-4.8); Lymphocytes % (A) 8 %; MCH 32.6 pg (25.0-35.0); MCHC 33.5 g/dL (31.0-37.0); MCV 97.3 fL (80.0-100.0); Mean Platelet Volume 6.9; Monocytes # (A) 0.5 k/uL (0-1.0); Monocytes % (A) 6 %; Neutrophils # (A) 6.5 k/uL (1.3-7.7); Neutrophils % (A) 85 %; Phosphorous 3.7 mg/dL (2.5-4.5); Potassium 4.6 mmol/L (3.5-5.1); RBC 3.16 m/uL (4.30-5.90); WBC 7.6 k/uL (3.8-10.6); WBC (Perox) 7.78
--- NOTE | 2016-06-18 08:51 | P.PN ---
Subjective 80-year-old being seen on rounds. Patient denying shortness of breath. There' s been no further episodes of hemoptysis. Patient's chest x-ray did show right upper lobe pneumonia patient has been on IV antibiotics. Patient did undergo o' clock this admission for hemoptysis. Patient states breathing feels improved less short of breathpulmonary participating in the plan of care. Currently patient on IV vancomycin and Zosyn. Acid-fast bacilli smear is negative and the bronchial washings presumptive staph Objective - Vital Signs Vital signs: Vital Signs Temp 98 F 06/18/16 07:00 Pulse 76 06/18/16 08:06 Resp 20 06/18/16 07:00 BP 118/70 06/18/16 07:00 Pulse Ox 93 L 06/18/16 07:00 Intake & Output 06/17/16 06/18/16 06/18/16 18:59 06:59 18:59 Intake Total 750 50 Balance 750 50 Weight 93.44 kg Intake: IV 50 50 Piperacillin-Tazobactam 3 50 50 .375 gm In Dextrose/Water 1 50ml.bag @ 12.5 mls/hr IVPB Q8H BRENDA Rx#: [id number] Intake, IV Titration 300 Amount Piperacillin-Tazobactam 3 50 .375 gm In Dextrose/Water 1 50ml.bag @ 12.5 mls/hr IVPB Q8H BRENDA Rx#: [id number] Vancomycin 1,500 mg In 250 Sodium Chloride 0.9% 250 ml @ 125 mls/hr IVPB Q24HR BRENDA Rx#:[id number] Oral 400 Other: Voiding Method Urinal Urinal # Voids 4 2 - Exam Physical exam 80-year-old gentleman sitting up in bed no acute distress Lungs diminished at the bases upper airways bronchial breath soundsno hemoptysis. On room air sats are 93%. Heart S1-S2 audible and irregular Abdomen soft nontender no nausea extremities no edema - Labs CBC & Chem 7: 06/17/16 07:48 06/17/16 07:48 Labs: Microbiology - Last 24 Hours (Table) 06/16/16 10:00 Gram Stain - Preliminary Bronchial Washings - Right Bronchial Washings Culture - Preliminary Presumptive Staph aureus Assessment and Plan Plan: Impression Present on admission shortness of breath suspect due to acute bilateral pneumonia gram-negative Chronic diastolic congestive heart failure compensated echocardiogram EF 50-55% Present on admission shortness of breath likely due to an acute exacerbation of COPD and emphysema Chronic renal failure stage III creatinine 1 0.8 Chronic paroxysmal atrial fibrillation on Xarelto current 12-lead EKG sinus rhythm Bronchoscopy with bronchial lavage done on June 15 noted small hematoma in the upper airway as well as close to the vocal cords suspect bleed from Xarelto History of transient ischemic attacks in the past Hemoptysis related to coagulopathy likely due to Xarelto 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 1 pack 30 year history Acute blood loss anemia multifactorial likely due to hemoptysis coagulopathy related to Xarelto therapy and bilateral acute pneumonia gram-negative Chronic debility Plan bronchial washings acid-fast bacilli smear negative the bronchial washing culture preliminary presumptive staph Continue respiratory treatments as ordered Solu-Medrol 40 IV every 8 monitor response Continue IV Zosyn and vancomycin as ordered Follow-up on fungal and acid-fast bacilli and bronchial washings DVT and GI prophylaxis Anticoagulation are on hold Further recommendations pending Resume home meds as appropriate Cardiology's recommendations reviewed the recommending treat the pneumonia and hemoptysis stops after treating it it's possible for the patient to go back on anticoagulation therapy The above dictated assessment and findings were discussed with dr abdalla . Impression and the plan of care have been dictated as directed. Christal Rooney nurse practitioner acting as a scribe for dr abdalla.
[2016-06-18 09:29] LABS: Magnesium 2.6 mg/dL (1.6-2.3)
--- NOTE | 2016-06-18 09:42 | P.DS ---
Providers Date of admission: 06/15/16 13:32 Expected date of discharge: 06/18/16 Attending physician: Remington Underwood Consults: 06/15/16 14:36 Consult Physician Urgent Consulting Provider: Sher Melgar Consult Reason/Comments: hemoptysis, frequent/recurrent Do you want consulting provider notified?: Yes 06/16/16 12:48 Consult Physician Routine Consulting Provider: Dior Esparza Consult Reason/Comments: evaluation for Xarelto Do you want consulting provider notified?: Yes, Notify in am Primary care physician: Remington Underwood [facility] Course: This is an 80-year-old male patient being evaluated and examined examined today in the intensive care unit. This patient came into the ER for significant hemoptysis he keeps coughing up blood. This patient is well-known to our office and has had multiple bronchoscopies. The patient frequently comes and with hemoptysis which is scant, however this has increased significantly over the last week. The patient is also on Xarelto, and has had previous PEs and DVTs.. The patient was given a dose of K Sentra to reverse Xarelto. Hemoglobin initially was 10.8 however the repeat at this evening is 9.8. Chest x-ray reveals a right upper lobe pneumonia and the patient has been started on antibiotics for that as well. Patient denies any fever or any abdominal pain, nausea, vomiting, diarrhea or constipation. Patient also denies any lightheadedness or dizziness, headaches or weakness. The patient went for bronchoscopy yesterday and has had scant to no hemoptysis. He states he is feeling significantly better with less shortness of breath. patient was followed by pulmonary service. And on the day of discharge indicated that the patient be discharged home on oral antibiotics. Additionally cardiology service indicated the patient pneumonia needed to be treated after treati it's possible that the patient could go back on anticoagulation therapy. Subsequently the patient was discharged home felt to be medically stable and appropriate proceed Impression discharge diagnosis Present on admission shortness of breath suspect due to acute bilateral pneumonia gram-negative Chronic diastolic congestive heart failure compensated echocardiogram EF 50-55% Present on admission shortness of breath likely due to an acute exacerbation of COPD and emphysema Chronic renal failure stage III creatinine 1 0.8 Chronic paroxysmal atrial fibrillation on Xarelto current 12-lead EKG sinus rhythm Bronchoscopy with bronchial lavage done on June 15 noted small hematoma in the upper airway as well as close to the vocal cords suspect bleed from Xarelto History of transient ischemic attacks in the past Hemoptysis related to coagulopathy likely due to Xarelto 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 Impression and the plan of care have been dictated as directed. Christal Rooney nurse practitioner acting as a scribe for dr underwood. Plan - Discharge Summary New Discharge Prescriptions: Amoxic-Pot Clav 875-125Mg [Augmentin 875-125] 1 tab PO Q12HR #20 tablet Codeine 30 mg PO Q4-6H #24 tablet Discharge Medication List Omeprazole [PriLOSEC] 20 mg PO QAM 11/27/14 [History] Famotidine [Pepcid] 20 mg PO BID tab 11/28/14 [Rx] Sucralfate [Carafate] 1 gm PO QID tab 11/28/14 [Rx] Acetaminophen Tab [Tylenol] 1,000 mg PO Q6HR PRN 12/23/14 [History] Ferrous Sulfate [Iron (65 MG Elemental)] 325 mg PO DAILY 12/23/14 [History] Carvedilol [Coreg] 6.25 mg PO BID 05/14/16 [History] Doxazosin [Cardura] 2 mg PO HS 05/14/16 [History] Finasteride [Proscar] 5 mg PO QAM 05/14/16 [History] Potassium Chloride [Klor-Con 10] 10 meq PO DAILY 05/14/16 [History] Aspirin EC [Ecotrin Low Dose] 81 mg PO DAILY 06/15/16 [History] Amoxic-Pot Clav 875-125Mg [Augmentin 875-125] 1 tab PO Q12HR #20 tablet [Rx] Codeine 30 mg PO Q4-6H #24 tablet 06/17/16 [Rx] Follow up Appointment(s)/Referral(s): Remington Underwood MD [Primary Care Provider] - 1-2 days Gabriele Bae MD [STAFF PHYSICIAN] - 1 Week Toñito Davalos MD [STAFF PHYSICIAN] - 1 Week Discharge Disposition: HOME SELF-CARE
[2016-06-18] MEDS: VANCOMYCIN 1,500 MG in SODIUM CHLORIDE 0.9% 250 ML IVPB SCH (11:06)
--- NOTE | 2016-06-18 12:56 | P.PN ---
Subjective This is an 80-year-old male patient being evaluated and examined examined today in the intensive care unit. This patient came into the ER for significant hemoptysis he keeps coughing up blood. This patient is well-known to our office and has had multiple bronchoscopies. The patient frequently comes and with hemoptysis which is scant, however this has increased significantly over the last week. The patient is also on Xarelto, and has had previous PEs and DVTs.. The patient was given a dose of K Sentra to reverse Xarelto. Hemoglobin initially was 10.8 however the repeat at this evening is 9.8. Chest x-ray reveals a right upper lobe pneumonia and the patient has been started on antibiotics for that as well. Patient denies any fever or any abdominal pain, nausea, vomiting, diarrhea or constipation. Patient also denies any lightheadedness or dizziness, headaches or weakness. The patient went for bronchoscopy and has had scant to no hemoptysis. He states he is feeling significantly better with less shortness of breath. The patient is breathing comfortably on room air. The patient's bronchial washings came back for MRSA positive therefore the patient's discharge will be held and infectious disease has been put on consult. We will put the patient back on his previous antibiotics. Objective - Vital Signs Vital signs: Vital Signs Temp 98 F 06/18/16 07:00 Pulse 80 06/18/16 11:32 Resp 20 06/18/16 08:00 BP 118/70 06/18/16 07:00 Pulse Ox 93 L 06/18/16 07:00 Intake & Output 06/17/16 06/18/16 06/18/16 18:59 06:59 18:59 Intake Total 750 50 Balance 750 50 Weight 93.44 kg Intake: IV 50 50 Piperacillin-Tazobactam 3 50 50 .375 gm In Dextrose/Water 1 50ml.bag @ 12.5 mls/hr IVPB Q8H BRENDA Rx#: [id number] Intake, IV Titration 300 Amount Piperacillin-Tazobactam 3 50 .375 gm In Dextrose/Water 1 50ml.bag @ 12.5 mls/hr IVPB Q8H BRENDA Rx#: [id number] Vancomycin 1,500 mg In 250 Sodium Chloride 0.9% 250 ml @ 125 mls/hr IVPB Q24HR BRENDA Rx#:[id number] Oral 400 Other: Voiding Method Urinal Urinal Urinal # Voids 4 2 - Exam GENERAL EXAM: Alert, tired, comfortable in no apparent distress. HEAD: Normocephalic. EYES: Normal reaction of pupils, equal size. NOSE: Clear with pink turbinates. THROAT: No erythema or exudates. NECK: No masses, no JVD. CHEST: No chest wall deformity. LUNGS: Equal air entry, few scattered rhonchi noted throughout. CVS: S1 and S2 normal with no audible mumurs, regular rhythm. ABDOMEN: No hepatosplenomegaly, normal bowel sounds, no guarding or rigidity. EXTREMITIES: No edema noted, pedal pulses palpable. SKIN: No rashes CENTRAL NERVOUS SYSTEM: No focal deficits, tone is normal in all 4 extremities. - Labs CBC & Chem 7: 06/18/16 08:14 06/18/16 08:14 Labs: Abnormal Lab Results - Last 24 Hours (Table) 06/18/16 06/18/16 Range/Units 08:14 08:14 RBC 3.16 L (4.30-5.90) m/uL Hgb 10.3 L (13.0-17.5) gm/dL Hct 30.8 L (39.0-53.0) % Lymphocytes # 0.6 L (1.0-4.8) k/uL BUN 47 H (9-20) mg/dL Creatinine 2.05 H (0.66-1.25) mg/dL Magnesium 2.6 H (1.6-2.3) mg/dL Microbiology - Last 24 Hours (Table) 06/16/16 10:00 Gram Stain - Final Bronchial Washings - Right Bronchial Washings Culture - Final Methicillin resist S. aureus Assessment and Plan Plan: Assessment Hemoptysis Bilateral pneumonia, worse on the right compared to the left. 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 Infectious disease has been consult that. Medications have been reviewed and will be continued. Cardio thoracic specialist for consult. Decrease steroids, also on codeine around the clock to suppress his cough and to minimize hemoptysis. Patient would benefit for one more day in the hospital for IV antibiotics. We will continue to monitor labs/results and adjust treatment as necessary. I performed an examination of the patient and discussed their management with the nurse practitioner. I have reviewed the nurse practitioner's note and agree with the documented findings and plan of care.
--- NOTE | 2016-06-18 14:17 | PN ---
DATE OF SERVICE: 06/18/2016 CHIEF COMPLAINT: Right upper lobe pneumonitis and hemoptysis. HISTORY OF PRESENT ILLNESS: This gentleman was supposed to go home today, but apparently he is growing MRSA out and Infectious Disease wants him to stay in the hospital. PHYSICAL EXAM: Chest is clear. Cardiac exam is normal. ABDOMEN: Soft, nontender. IMPRESSION: 1. Right upper lobe pneumonia. 2. Methicillin-resistant Staphylococcus aureus. 3. Hemoptysis. PLAN: Cancel discharge.
--- NOTE | 2016-06-18 21:03 | CONS ---
DATE OF CONSULTATION: 06/18/2016 REASON FOR CONSULTATION: MRSA pneumonia. HISTORY OF PRESENT ILLNESS: The patient is an 80-year-old male who presented to the [facility] ER on 06/15/2016 with hemoptysis. Patient said that he had not been feeling well for about a week or so, has been not feeling well and did have some shortness of breath and a cough; however, when he started having hemoptysis that did concern him, so he presented to the ER. Patient subsequently was evaluated by the ER physician. The patient did have a chest x-ray which showed large right upper lobe consolidation, correlate for pneumonia. Patient had a bronchoscopy done by Dr. Bae on 06/16, with no evidence of any malignancy. The cytology is showing an acellular specimen consisting of blood; no malignancy identified. He did have bronchoscopy cultures coming back positive with MRSA today. The patient has been treated with Zosyn and vancomycin. I was asked to see the patient for further recommendations regarding antibiotic therapy. Patient's overall breathing has improved. He is not having any more hemoptysis. Patient denies significant chest pain. No abdominal pain. No nausea, vomiting or any diarrhea. REVIEW OF SYSTEMS: CONSTITUTIONAL: Positive for weakness. EYES: No complaint. ENT: No complaint. RESPIRATORY: As per HPI. CARDIOVASCULAR: No complaint. GENITOURINARY: No complaint. GASTROINTESTINAL: No complaint. MUSCULOSKELETAL: No complaint. INTEGUMENTARY: No complaint. PSYCHOLOGIC: No complaint. ENDOCRINE: No complaint. NEUROLOGIC: No complaint. PAST MEDICAL HISTORY: 1. Atrial fibrillation. 2. Coronary artery disease. 3. Heart failure with COPD. 4. CVA. 5. TIA. 6. DVT. 7. Gastroesophageal reflux disease. 8. Hyperlipidemia. 9. DE. 10. PE. 11. Abdominal aortic aneurysm. 12. MRSA infection. PAST SURGICAL HISTORY: 1. Heart catheterization. 2. Colonoscopy. 3. Right shoulder biceps tendon repair. 4. ORIF, left elbow. 5. Right knee arthroscopy. SOCIAL HISTORY: Former smoker. No drinking or any drug use. FAMILY HISTORY: Father with history of prostate cancer. Mother with history of uterine cancer. ALLERGIES: 1. SULFA. 2. MILK. Medications include: 1. DuoNeb. 2. Pulmicort. 3. Codeine. 4. Solu-Medrol. 5. Narcan. 6. Protonix. 7. Vancomycin. 8. Zosyn. On examination, blood pressure is 116/72 with a pulse of 68, temperature 97.1. He is 93% on room air. General description is an elderly male lying in bed in no distress. No tachypnea or accessory muscle of respiration use. HEENT examination shows pallor. No scleral icterus. Oral mucous membrane is dry. NECK: Trachea is central. No thyromegaly. LUNGS: Unlabored breathing with coarse breath sounds on the right side. No wheeze. HEART: S1, S2. Regular rate and rhythm. ABDOMEN: Soft. No tenderness. EXTREMITIES: No edema of the feet. SKIN EXAMINATION: No rash or mass palpable. Neurologically patient is awake, alert, oriented x3. Mood and affect normal. LABS: Hemoglobin is 10.3, white count 7.6 with a BUN of 47, creatinine 2.05. Electrolytes have been normal. Influenza A and B has been negative. Bronchoscopy culture with MRSA. DIAGNOSTIC IMPRESSION AND PLAN: Patient with right upper lobe pneumonia, status post bronchoscopy. Culture has been positive for MRSA in a patient admitted to hospital with hemoptysis. Unfortunately no blood culture has been done and patient already has been on antibiotics for more than 96 hours. PLAN: 1. Recommend keeping patient on vancomycin, Pharmacy to dose, target of 15; and discontinue Zosyn. 2. Will discuss with the family independence case manager if Zyvox covered for the patient which would be 600 mg twice a day for 2 weeks. That would be a better option than a PICC line and IV antibiotic therapy in the outpatient setting; however, if no coverage for Zyvox, patient will need a PICC line and IV antibiotics to finish his antibiotic therapy. 3. Will follow up on his clinical condition and cultures to further adjust medication if needed. Thank you for this consultation. Will follow this patient along with you. KIRAN
[2016-06-19] MEDS: CODEINE 30 MG TAB PO SCH ×3 (07:32→23:10)
[2016-06-19] MEDS: PANTOPRAZOLE 40 MG TABLET PO SCH (07:32)
[2016-06-19] MEDS: methylPREDNISolone SOD SUCCI 40 MG/ML 1 ML VIAL IV SCH ×2 (07:33→20:54)
[2016-06-19 08:27] LABS: Basophils % (A) 0 %; CH 32.1; CHCM 32.5; Eosinophils % (A) 0 %; HCT 28.1 % (39.0-53.0); HDW 2.72; Luc # (Auto) 0.09; Luc % (Auto) 2; Lymphocytes # (A) 0.8 k/uL (1.0-4.8); Lymphocytes % (A) 15 %; MCH 31.8 pg (25.0-35.0); MCHC 31.9 g/dL (31.0-37.0); MCV 99.6 fL (80.0-100.0); Mean Platelet Volume 6.9; Monocytes # (A) 0.5 k/uL (0-1.0); Monocytes % (A) 8 %; Neutrophils # (A) 4.4 k/uL (1.3-7.7); Neutrophils % (A) 76 %; RBC 2.82 m/uL (4.30-5.90); RDW 13.3 % (11.5-15.5); WBC 5.8 k/uL (3.8-10.6); WBC (Perox) 5.98
[2016-06-19 08:43] LABS: Magnesium 2.4 mg/dL (1.6-2.3); Phosphorous 3.5 mg/dL (2.5-4.5); Potassium 4.4 mmol/L (3.5-5.1)
[2016-06-19] MEDS: VANCOMYCIN 1,750 MG in SODIUM CHLORIDE 0.9% 250 ML IVPB SCH (09:49)
[2016-06-19] MEDS: IPRATROPIUM-ALBUTEROL 3 ML NEB INHALATION SCH ×4 (11:14→19:32)
[2016-06-19] MEDS: BUDESONIDE 0.5 MG/2 ML NEBU INHALATION SCH ×2 (11:14→19:32)
--- NOTE | 2016-06-19 12:36 | PN ---
Mr. Kun Bear is seen, evaluated and examined on the fifth floor. He is breathing comfortably. Denies any chest pain. He is not on supplemental oxygen. Cough, congestion and shortness of breath has improved. He has occasional streaks of blood, vy hemoptysis. It was seen previously, has stopped. He is off of Xarelto as it is a high risk for bleeding complications. As patient's sputum culture/bronchoscopy culture came back positive for MRSA, patient is being treated with IV Vanco and Zosyn. His last set of vitals include blood pressure is 140/70, respiratory rate 16, pulse 71, temperature 97, saturation 93%. HEENT: Unremarkable. Neck supple without any lymphadenopathy, jugular venous distention or carotid bruit. LUNGS: Bilateral good air entry is present, a few expiratory wheezing and rhonchi are present. HEART: Regular rate and rhythm, S1 and S2 audible. Abdomen is soft. No rebound or rigidity. EXTREMITIES: +1 peripheral pulses. NEUROLOGICAL EXAMINATION: Otherwise, awake and alert. IMPRESSION: 1. Pneumonia, respiratory failure. 2. Severe massive hemoptysis. 3. Prior history of deep venous thrombosis, pulmonary embolism. Plan and recommendation is continue antibiotics. Continue supportive care. Monitor renal functions closely. Will obtain a followup chest x-ray as well. Patient likely will be ready in the next 24 to 48 hours on oral Zyvox.
--- NOTE | 2016-06-19 18:10 | PN ---
DATE OF SERVICE: 06/19/2016 CHIEF COMPLAINT: Hemoptysis and pneumonitis. HISTORY OF PRESENT ILLNESS: This gentleman is doing well. He has had no shortness of breath, chest pain, hemoptysis, etc. Apparently he grew out MRSA. Sputum is now being held up for IV management of that organism. PHYSICAL EXAMINATION: CHEST: Clear. He does have an increased AP diameter. Breath sounds are somewhat diminished. Cardiac exam is unchanged, in atrial fibrillation. ABDOMEN: Soft, nontender. IMPRESSION: 1. Pneumonitis and hemoptysis. 2. Atrial fibrillation. 3. Methicillin-resistant Staph aureus. 4. Chronic obstructive pulmonary disease. PLAN: No change in program.
[2016-06-20] MEDS: CODEINE 30 MG TAB PO SCH ×2 (07:16→15:21)
[2016-06-20] MEDS: PANTOPRAZOLE 40 MG TABLET PO SCH (07:17)
[2016-06-20] MEDS: methylPREDNISolone SOD SUCCI 40 MG/ML 1 ML VIAL IV SCH ×2 (07:17→21:13)
[2016-06-20 07:54] LABS: Basophils % (A) 0 %; Eosinophils # (A) 0.1 k/uL (0-0.7); Eosinophils % (A) 1 %; HCT 32.6 % (39.0-53.0); HDW 2.69; HGB 10.7 gm/dL (13.0-17.5); Luc # (Auto) 0.09; Luc % (Auto) 1; Lymphocytes # (A) 1.2 k/uL (1.0-4.8); Lymphocytes % (A) 18 %; MCH 32.9 pg (25.0-35.0); MCHC 32.6 g/dL (31.0-37.0); MCV 100.7 fL (80.0-100.0); Mean Platelet Volume 6.6; Monocytes # (A) 0.6 k/uL (0-1.0); Monocytes % (A) 9 %; Neutrophils # (A) 4.8 k/uL (1.3-7.7); Neutrophils % (A) 71 %; RBC 3.24 m/uL (4.30-5.90); WBC 6.8 k/uL (3.8-10.6)
[2016-06-20 08:03] LABS: Calcium 9.1 mg/dL (8.4-10.2); Magnesium 2.3 mg/dL (1.6-2.3); Phosphorous 3.6 mg/dL (2.5-4.5); Total Bilirubin 1.2 mg/dL (0.2-1.3); Total Protein 6.6 g/dL (6.3-8.2)
--- NOTE | 2016-06-20 08:10 | XR ---
EXAMINATION TYPE: XR chest 1V portable DATE OF EXAM: 06/20/2016 7:38 AM COMPARISON: 06/17/2016 INDICATION: Pneumonia Previous abnormal chest TECHNIQUE: Single frontal view of the chest is obtained. FINDINGS: The heart size is normal. The pulmonary vasculature is normal. There is an improving right upper lobe infiltrate compatible with pneumonia. Mild infiltrate remains in the left base. A minimal right pleural effusion may be present. IMPRESSION: 1. Improving right upper lobe pneumonia. Additional infiltrates in pleural effusions are discussed ab ove.
[2016-06-20] MEDS: VANCOMYCIN 1,750 MG in SODIUM CHLORIDE 0.9% 250 ML IVPB SCH (08:21)
[2016-06-20] MEDS: IPRATROPIUM-ALBUTEROL 3 ML NEB INHALATION SCH ×4 (08:40→19:41)
[2016-06-20] MEDS: BUDESONIDE 0.5 MG/2 ML NEBU INHALATION SCH ×2 (08:40→19:41)
--- NOTE | 2016-06-20 16:41 | PN ---
Kun Bear is seen, evaluated, and examined. He is awake, alert. He has a small clump of blood today which he coughed out which were old. Patient is off of Xarelto. He is on IV vancomycin and Zosyn. His respiratory status is stable. His blood pressure 120/80, respiratory rate 18, pulse 76, temperature 98, saturation 94%. HEENT EXAMINATION: Otherwise unremarkable. NECK: Supple. LUNGS: Good air entry bilaterally. HEART: Regular rate and rhythm. S1 and S2 audible. ABDOMEN: Soft. No rebound or rigidity. EXTREMITIES: +1 peripheral pulses. NEUROLOGICAL EXAMINATION: Otherwise, awake. Chest x-ray revealed right upper lobe pneumonia, which is slowly improving and slightly better than the previous x-rays. Current medications reviewed. Laboratory data reviewed as well. CBC is stable. BUN and creatinine improved to 45 and 1.92. IMPRESSION: 1. Methicillin-resistant Staphylococcus aureus pneumonia and purulent tracheobronchitis. 2. Extensive hemoptysis. 3. History of chronic intermittent proximal and atrial fibrillation and deep venous thrombosis in the past. The patient is not a candidate for long-term coagulation. 4. History of severe chronic obstructive pulmonary disease, emphysema. PLAN AND RECOMMENDATIONS: As above. Continue to monitor closely. Insurance evaluation pending for Zyvox coverage. Patient likely will go home on oral Zyvox and oral tapering steroids and breathing treatment and aspirin with other medications and off of Xarelto. Will follow.
[2016-06-20 22:33] VITALS: RESP 16
[2016-06-21] MEDS: CODEINE 30 MG TAB PO SCH ×2 (00:54→09:01)
[2016-06-21] MEDS: IPRATROPIUM-ALBUTEROL 3 ML NEB INHALATION SCH ×2 (07:21→10:59)
[2016-06-21] MEDS: BUDESONIDE 0.5 MG/2 ML NEBU INHALATION SCH (07:21)
[2016-06-21 07:40] VITALS: BP 124/77; TEMP 97.9
--- NOTE | 2016-06-21 08:06 | XR ---
EXAMINATION TYPE: XR chest 1V portable DATE OF EXAM: 06/21/2016 7:49 AM CLINICAL HISTORY: Difficulty breathing and pneumonia progress study. TECHNIQUE: Single AP portable frontal view of the chest is obtained. COMPARISON: Chest x-ray from one day earlier FINDINGS: There is diffuse right upper lung and left basilar opacities redemonstrated. No large pleu ral effusion or pneumothorax is present bilaterally. The cardiac silhouette size is stable and within normal limits with ectatic thoracic aorta redemonstrated. Mass effect on trachea is again seen. Osse ous structures are intact. IMPRESSION: Overall stable findings, diffuse right upper lung and more focal left basilar atelectas is and/or infiltrate both redemonstrated.
[2016-06-21 08:19] LABS: Potassium 4.4 mmol/L (3.5-5.1); Total Bilirubin 1.3 mg/dL (0.2-1.3); Total Protein 6.2 g/dL (6.3-8.2)
[2016-06-21 08:27] LABS: Basophils % (A) 0 %; CH 32.5; CHCM 33.6; Eosinophils # (A) 0.1 k/uL (0-0.7); Eosinophils % (A) 2 %; HCT 29.6 % (39.0-53.0); HDW 2.85; HGB 10.2 gm/dL (13.0-17.5); Luc # (Auto) 0.07; Luc % (Auto) 1; Lymphocytes # (A) 1.2 k/uL (1.0-4.8); Lymphocytes % (A) 22 %; MCH 33.3 pg (25.0-35.0); MCHC 34.3 g/dL (31.0-37.0); MCV 97.1 fL (80.0-100.0); Mean Platelet Volume 6.9; Monocytes # (A) 0.5 k/uL (0-1.0); Monocytes % (A) 9 %; Neutrophils # (A) 3.7 k/uL (1.3-7.7); Neutrophils % (A) 66 %; RBC 3.05 m/uL (4.30-5.90); RDW 13.1 % (11.5-15.5); WBC 5.5 k/uL (3.8-10.6); WBC (Perox) 5.29
[2016-06-21] MEDS: PANTOPRAZOLE 40 MG TABLET PO SCH (09:03)
[2016-06-21] MEDS: VANCOMYCIN 1,750 MG in SODIUM CHLORIDE 0.9% 250 ML IVPB SCH (09:03)
[2016-06-21] MEDS: methylPREDNISolone SOD SUCCI 40 MG/ML 1 ML VIAL IV SCH (09:03)
--- NOTE | 2016-06-21 10:03 | PN ---
DATE OF SERVICE: 06/20/2016 CHIEF COMPLAINT: Hemoptysis and pneumonitis. HISTORY OF PRESENT ILLNESS: This gentleman is doing well and he has no further hemoptysis. He has had no fever, chills, chest pain ( ) Chest is clear. Cardiac exam is normal except for atrial fibrillation. The abdomen is soft, nontender. IMPRESSION: Paroxysmal atrial fibrillation ( ) and he can go once he is cleared by Infectious Disease.
--- NOTE | 2016-06-21 10:46 | PN ---
DATE OF SERVICE: 06/20/2016 Reason for followup MRSA pneumonia. INTERVAL HISTORY: The patient is afebrile. Has been breathing comfortably. Denies significant chest pain or shortness of breath. Patient's cough is less productive. No hemoptysis. No abdominal pain. No nausea, vomiting or any diarrhea. On examination, blood pressure 105/56 with a pulse 106, temperature 97. He is 97% on room air. General description is an elderly male, lying in bed in no distress. RESPIRATORY SYSTEM: Unlabored breathing. Clear to auscultation anteriorly. HEART: S1, S2. Regular rate and rhythm. ABDOMEN: Soft, no tenderness. EXTREMITIES: No edema of the feet. LABS: Hemoglobin 10.7, white count is 6.8, BUN of 45 with a creatinine 1.92. DIAGNOSTIC IMPRESSION AND PLAN: Patient with a methicillin-resistant Staphylococcus aureus pneumonia. Patient is currently on vancomycin. Will continue watching his kidney function closely. Will be discussing with the rifle case repairer tomorrow if the qualifies for Zyvox 600 mg twice a day for another 12 days. If not, he will need a PICC line and outpatient IV antibiotic vancomycin arrangement. Continue supportive care.
[2016-06-21 11:09] VITALS: PULSE 82
[2016-06-21 11:36] LABS: Mis test requested (Non-blood) LEGIONELLA PCR
--- NOTE | 2016-06-21 11:45 | P.PN ---
Subjective This is an 80-year-old male patient being evaluated and examined examined today in the intensive care unit. This patient came into the ER for significant hemoptysis he keeps coughing up blood. This patient is well-known to our office and has had multiple bronchoscopies. The patient frequently comes and with hemoptysis which is scant, however this has increased significantly over the last week. The patient is also on Xarelto, and has had previous PEs and DVTs.. The patient was given a dose of K Sentra to reverse Xarelto. Hemoglobin initially was 10.8 however the repeat at this evening is 9.8. Chest x-ray reveals a right upper lobe pneumonia and the patient has been started on antibiotics for that as well. Patient denies any fever or any abdominal pain, nausea, vomiting, diarrhea or constipation. Patient also denies any lightheadedness or dizziness, headaches or weakness. The patient went for bronchoscopy. He states he is feeling significantly better with less shortness of breath. The patient is breathing comfortably on room air. The patient's bronchial washings came back for MRSA positive therefore the patient's discharge was held and infectious disease has been put on consult over the weekend. Patient is doing significantly better and has had scant hemoptysis of old blood nothing bright red in nature. Objective - Vital Signs Vital signs: Vital Signs Temp 97.9 F 06/21/16 07:00 Pulse 82 06/21/16 11:09 Resp 16 06/21/16 07:00 BP 124/77 06/21/16 07:00 Pulse Ox 100 06/21/16 07:00 Intake & Output 06/20/16 06/21/16 06/21/16 18:59 06:59 18:59 Intake Total 550 1020 Output Total 0 Balance 550 1020 Weight 93.44 kg Intake: Intake, IV Titration 250 80 Amount IV Fluid Continuation 1, 80 000 ml As IV .[facility] Rx#:[id number] Vancomycin 1,750 mg In 250 Sodium Chloride 0.9% 250 ml @ 125 mls/hr IVPB Q24HR [facility] Rx#:[id number] Oral 300 940 Output: Urine 0 Other: Voiding Method Toilet Toilet Urinal Urinal # Voids 2 - Exam GENERAL EXAM: Alert, tired, comfortable in no apparent distress. HEAD: Normocephalic. EYES: Normal reaction of pupils, equal size. NOSE: Clear with pink turbinates. THROAT: No erythema or exudates. NECK: No masses, no JVD. CHEST: No chest wall deformity. LUNGS: Equal air entry, few scattered rhonchi noted throughout. CVS: S1 and S2 normal with no audible mumurs, regular rhythm. ABDOMEN: No hepatosplenomegaly, normal bowel sounds, no guarding or rigidity. EXTREMITIES: No edema noted, pedal pulses palpable. SKIN: No rashes CENTRAL NERVOUS SYSTEM: No focal deficits, tone is normal in all 4 extremities. - Labs CBC & Chem 7: 06/21/16 07:42 06/21/16 07:42 Labs: Abnormal Lab Results - Last 24 Hours (Table) 06/21/16 06/21/16 Range/Units 07:42 07:42 RBC 3.05 L (4.30-5.90) m/uL Hgb 10.2 L (13.0-17.5) gm/dL Hct 29.6 L (39.0-53.0) % BUN 39 H (9-20) mg/dL Creatinine 1.91 H (0.66-1.25) mg/dL ALT 73 H (21-72) U/L Total Protein 6.2 L (6.3-8.2) g/dL Albumin 3.0 L (3.5-5.0) g/dL Assessment and Plan Plan: Assessment Hemoptysis Bilateral pneumonia, worse on the right compared to the left. 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 Appreciate antibiotics and point from infectious disease. Medications have been reviewed and will be continued. Cardio thoracic specialist for consult. We will continue to monitor labs/results and adjust treatment as necessary. We will follow-up with this patient in the outpatient setting. I performed an examination of the patient and discussed their management with the nurse practitioner. I have reviewed the nurse practitioner's note and agree with the documented findings and plan of care.
--- NOTE | 2016-06-21 14:01 | PN ---
DATE OF SERVICE: 06/21/2016 Reason for followup is MRSA pneumonia. INTERVAL HISTORY: The patient is afebrile. He is currently breathing comfortably Denies significant chest pain. Cough decreased in intensity, Denies any abdominal pain. No nausea, vomiting or any diarrhea. On examination, blood pressure 124/77 with a pulse of 66, temperature 97.9. He is 100% on room air. General description is an elderly male, up in the chair in no distress. RESPIRATORY SYSTEM: Unlabored breathing. Clear to auscultation anteriorly. HEART: S1, S2. Regular rate and rhythm. ABDOMEN: Soft, nontender. LABS: Hemoglobin 10.2, white count 5.5 with a BUN of 39, creatinine 1.91. DIAGNOSTIC IMPRESSION AND PLAN: Patient with methicillin-resistant Staphylococcus aureus pneumonia. Currently waiting for Zyvox arrangement. If the Zyvox is approved, he should be able to go home on the Zyvox 600 mg p.o. twice a day for another 2 weeks. However, if the Zyvox is not approved by insurance, patient will get a PICC line and continue the IV vancomycin for the same duration. Scripts were written for the patient. KIRAN
--- NOTE | 2016-06-22 06:42 | DS ---
DATE OF ADMISSION: 06/15/2016 DATE OF DISCHARGE: 06/21/2016 CHIEF COMPLAINT: Hemoptysis. HISTORY OF PRESENT ILLNESS AND PHYSICAL EXAM: The details of this man's history and physical can be found in the initial workup. LABORATORY STUDIES: While he was in the hospital he had laboratory studies, the details of which can be found in the laboratory section of the chart. COURSE IN THE HOSPITAL: After admission, he was placed on bed rest, started on IVs and taken off of his anticoagulants. He was seen by Pulmonology and was taken for bronchoscopy. No lesion was seen and a lot of blood was aspirated. He did well thereafter with coughing up only small amount of blood. He then grew out MRSA from his lung and he was kept another several days. He is doing well and it was felt he could be discharged on the , however. He will be sent home on only aspirin as an anticoagulant. FINAL DIAGNOSES: 1. Hemoptysis. 2. Upper lobe pneumonitis. 3. Atrial fibrillation. 4. Methicillin-resistant Staphylococcus aureus pneumonia. OPERATION: Bronchoscopy. CONSULTATIONS: Pulmonology. He is improved.
[2016-06-22] MEDS ORDERED: VANCOMYCIN TROUGH DUE 1 EACH MISC MISCELLANE ONE (08:00)
== END 2016-06-21 13:58 | disposition home or self-care (01) | DRG 190 ==
LOC: EC 10:13 → 6ICU 13:32 → 6SEL 06-16 11:07 → 5MS5E 06-16 15:35
PROVIDERS: ADMIT Family Medicine; ATTEND Family Medicine
PROC: 0B9B8ZX Drainage of Left Lower Lobe Bronchus, Via Natural or Artificial Opening Endoscopic, Diagnostic (ICD-10-PCS; principal; 2016-06-16 08:30)
PROC: 0B948ZX Drainage of Right Upper Lobe Bronchus, Via Natural or Artificial Opening Endoscopic, Diagnostic (ICD-10-PCS; principal; 2016-06-16 08:30)
DX: J44.0 Chronic obstructive pulmonary disease with (acute) lower respiratory infection (principal); J15.212 Pneumonia due to Methicillin resistant Staphylococcus aureus; J15.6 Pneumonia due to other Gram-negative bacteria; N18.4 Chronic kidney disease, stage 4 (severe); D68.32 Hemorrhagic disorder due to extrinsic circulating anticoagulants; I42.9 Cardiomyopathy, unspecified; I50.32 Chronic diastolic (congestive) heart failure; D62 Acute posthemorrhagic anemia; I27.2 Other secondary pulmonary hypertension; I48.0 Paroxysmal atrial fibrillation; I35.0 Nonrheumatic aortic (valve) stenosis; J44.1 Chronic obstructive pulmonary disease with (acute) exacerbation; T45.515A Adverse effect of anticoagulants, initial encounter; E78.5 Hyperlipidemia, unspecified; I25.10 Atherosclerotic heart disease of native coronary artery without angina pectoris; I25.2 Old myocardial infarction; I48.2 Chronic atrial fibrillation; I71.2 Thoracic aortic aneurysm, without rupture; I87.2 Venous insufficiency (chronic) (peripheral); K21.9 Gastro-esophageal reflux disease without esophagitis; K22.9 Disease of esophagus, unspecified; N40.1 Benign prostatic hyperplasia with lower urinary tract symptoms; Z79.01 Long term (current) use of anticoagulants; Z79.899 Other long term (current) drug therapy; Z80.42 Family history of malignant neoplasm of prostate; Z81.1 Family history of alcohol abuse and dependence; Z86.711 Personal history of pulmonary embolism; Z86.718 Personal history of other venous thrombosis and embolism; Z86.73 Personal history of transient ischemic attack (TIA), and cerebral infarction without residual deficits; Z87.891 Personal history of nicotine dependence
CPT/HCPCS: 31624; 36415; 71010; 71020; 80048; 80053; 80202; 81001; 82550; 82553; 83735; 84100; 84484; 85025; 85610; 85730; 87070; 87077; 87086; 87102; 87116; 87186; 87205; 87206; 87252; 87299; 87496; 87498; 87502; 87529; 87541; 87798; 88108; 88305; 93005; 93306; 94640; 94760; 96365; 96366; 96368; 96375; 96376; 99285

== ENCOUNTER 2016-07-04 17:54 | Inpatient (IN) | payer MEDICARE, BC ==
[2016-07-04] MEDS ORDERED: SODIUM CHLORIDE 0.9% 500 ML IV STA (18:22)
[2016-07-04] MEDS ORDERED: SODIUM CHLORIDE 0.9% 1,000 ML IV STA (18:22)
--- NOTE | 2016-07-04 18:24 | ED ---
General Adult HPI - General Source: patient, RN notes reviewed Mode of arrival: wheelchair Limitations: no limitations <Aquilino Valentino - Last Filed: 07/04/16 19:03> <Gilbert Catalan - Last Filed: 07/04/16 21:43> - General Chief complaint: Upper Respiratory Infection Stated complaint: Dizzy Time Seen by Provider: 07/04/16 18:15 - History of Present Illness Initial comments: Patient's an 80-year-old male who presents emergency room today with a chief complaint of increased cough congestion over the last few days. He does admit to positive sputum production it's been white in color. He does admit that he was recently admitted discharged from the hospital with pneumonia. Patient states he currently is on Linezolid. Patient does admit that symptoms seem to be returning and increasing once again. Patient does admit that he had previous hemoptysis. Sputum culture was positive for MRSA. Patient does admit to feeling dizzy and lightheaded which is also been ongoing over the last several weeks. He denies any other complaints or symptoms. Patient denies any recent fever, chills, shortness of breath, chest pain, back pain, abdominal pain , nausea or vomiting, numbness or tingling, dysuria or hematuria, constipation or diarrhea, headaches or visual changes, or any other complaints. (Aquilino Valentino) - Related Data Home Medications Medication Instructions Recorded Confirmed Omeprazole [PriLOSEC] 20 mg PO QAM 11/27/14 07/04/16 Acetaminophen Tab [Tylenol] 1,000 mg PO Q6HR PRN 12/23/14 07/04/16 Ferrous Sulfate [Iron (65 MG 325 mg PO DAILY 12/23/14 07/04/16 Elemental)] Carvedilol [Coreg] 3.125 mg PO BID 05/14/16 07/04/16 Doxazosin [Cardura] 1 mg PO HS 05/14/16 07/04/16 Finasteride [Proscar] 5 mg PO QAM 05/14/16 07/04/16 Potassium Chloride [Klor-Con 10] 10 meq PO DAILY 05/14/16 07/04/16 Aspirin 325 mg PO DAILY 07/04/16 07/04/16 Previous Rx's Medication Instructions Recorded Famotidine [Pepcid] 20 mg PO BID tab 11/28/14 Sucralfate [Carafate] 1 gm PO QID tab 11/28/14 Allergies Allergy/AdvReac Type Severity Reaction Status Date / Time milk Allergy Abdominal Verified 07/04/16 19:11 Pain, GAS,freq urination Sulfa (Sulfonamide Allergy Rash/Hives Verified 07/04/16 19:11 Antibiotics) wheat Allergy Rash/Hives,freq Verified 07/04/16 19:11 urinat but states eats a little bit of wheat EGG WHITES Allergy Rash/Hives,freq Uncoded 07/04/16 18:02 urination Review of Systems ROS Other: All systems not noted in ROS Statement are negative. <Aquilino Valentino - Last Filed: 07/04/16 19:03> ROS Other: All systems not noted in ROS Statement are negative. <Gilbert Catalan - Last Filed: 07/04/16 21:43> ROS Statement: Those systems with pertinent positive or pertinent negative responses have been documented in the HPI. Past Medical History Past Medical History: Atrial Fibrillation, Coronary Artery Disease (CAD), Heart Failure, COPD, CVA/TIA, Deep Vein Thrombosis (DVT), GERD/Reflux, GI Bleed, Hyperlipidemia, Memory Impairment, Myocardial Infarction ([place]), Pneumonia, Prostate Disorder, Renal Disease, Vascular Disorder Additional Past Medical History / Comment(s): Pt has had streaks of blood in sputum for the past couple months, hemoptysis with lung abscess-he had a bronchoscopy with BAL 05/19/16, bollous lung disease, AAA, UNK SIZE, LT Leg DVT, renal disease stage II, hematuria, BPH, diverticulosis. Varicosities Richard LEGS, EDEMA FEET, HX FX LT Foot, LT Elbow yrs ago, Freq Gas, 11/27/14 - ADM TO [facility] W / SEV TIA'S, SOME MEMORY CHANGES NOTED. Last Myocardial Infarction Date:: unkn History of Any Multi-Drug Resistant Organisms: MRSA Date of last positivie culture/infection: 06/16/16 MDRO Source:: bronch wash Past Surgical History: Heart Catheterization, Orthopedic Surgery Additional Past Surgical History / Comment(s): 05/19/16 bronchoscopy with BAL, 2012 Colonoscopy-nl. 2008 cardiac cath-nl. RT Shoulder Bicep Tendon repair. ORIF LT elbow 2007. RT knee arthroscopy. Nasophaygeal Larynoscopy, 2014 Broncoscopy (Bronch was pos for e-coli). Past Anesthesia/Blood Transfusion Reactions: Motion Sickness Past Psychological History: No Psychological Hx Reported Additional Psychological History / Comment(s): PT IS RETIRED FROM THE [employer] AND SERVED IN THE [employer]. Smoking Status: Former smoker Past Alcohol Use History: None Reported Additional Past Alcohol Use History / Comment(s): HX Smoking cigarettes, pipe and cigars . He smoked between 1/2-1ppd for 20-30 yrs. He quit smoking in 2001 Past Drug Use History: None Reported - Past Family History Father Family Medical History: Cancer Additional Family Medical History / Comment(s): Father was an alcoholic, FROM PROSTATE CANCER at the age of 87yrs. Mother Family Medical History: Cancer Additional Family Medical History / Comment(s): UTERINE CANCER <Aquilino Valentino - Last Filed: 07/04/16 19:03> General Exam Limitations: no limitations <Aquilino Valentino - Last Filed: 07/04/16 19:03> <Gilbert Catalan - Last Filed: 07/04/16 21:43> - General Exam Comments Initial Comments: General: The patient is awake and alert, in no distress, and does not appear acutely ill. Eye: Pupils are equal, round and reactive to light, extra-ocular movements are intact. No nystagmus. There is normal conjunctiva bilaterally. No signs of icterus. Ears, nose, mouth and throat: There are moist mucous membranes and no oral lesions. Neck: The neck is supple, there is no tenderness or JVD. Cardiovascular: There is a regular rate and rhythm. No murmur, rub or gallop is appreciated. Respiratory: Lungs are clear to auscultation, respirations are non-labored, breath sounds are equal. No wheezes, stridor, rales, or rhonchi. Gastrointestinal: Soft, non-distended, non-tender abdomen without masses or organomegaly noted. There is no rebound or guarding present. No CVA tenderness. Bowel sounds are unremarkable. Musculoskeletal: Normal ROM, no tenderness. Strength 5/5. Sensation intact. Pulses equal bilaterally 2+. Neurological: A&O x 3. CN II-XII intact, There are no obvious motor or sensory deficits. Coordination appears grossly intact. Speech is normal. Skin: Skin is warm and dry and no rashes or lesions are noted. Psychiatric: Cooperative, appropriate mood & affect, normal judgment. (Aquilino Valentino) Course <ChichoAquilino - Last Filed: 07/04/16 19:03> <Gilbert Catalan - Last Filed: 07/04/16 21:43> Vital Signs 07/04/16 07/04/16 07/04/16 17:58 19:10 20:48 Temperature 98 F 98.7 F Pulse Rate 92 94 83 Respiratory 20 18 18 Rate Blood Pressure 110/67 113/76 133/83 O2 Sat by Pulse 96 98 99 Oximetry - Reevaluation(s) Reevaluation #1: 07/04/16 19:04 Patient says x-rays reviewed and does show improvement from previous. Does show possible nodule in the right upper lung. Patient labs currently pending. At this time case was discussed and signed out to . (Aquilino Valentino) EKG Findings - EKG Comments: EKG Findings:: EKG performed at 1840: Shows A. fib with PVC at 95 bpm. QRS 104. QT/QTC 362/454. No acute ST changes. Compared to previous EKG from 2016. <ValentinoAquilino - Last Filed: 07/04/16 19:03> Medical Decision Making <ValentinoAquilino - Last Filed: 07/04/16 19:03> - Lab Data Result diagrams: 07/04/16 19:22 07/04/16 19:22 <Gilbert Catalan - Last Filed: 07/04/16 21:43> - Medical Decision Making Labs revealed a mild leukopenia and a hemoglobin of 9.9 which is consistent with values from previous visits. His BUN/creatinine are also elevated a little above baseline but with a d-dimer of 15.92 would not be able to perform CT PE for rule out pulmonary embolism. Urine also shows trace amounts of blood and RBCs. Pt reevaluated and doing well. Admission plan discussed with him and he agreed with proceeding. Dr. Underwood (PCP) was updated on the status of the pt and agreed with admission and also agreed to withholding heparin in light of pulmonary bleeding and hematuria. He requested consult with Dr. Bae (pulm/crit care). Dr. Bae requested that the heparin be initiated at low intensity without a bolus. Dr. Underwood was repaged to update on this change in plan. (Gilbert Catalan) - Lab Data Lab Results 07/04/16 07/04/16 07/04/16 Range/Units 19:22 19:22 19:22 WBC 3.6 L (3.8-10.6) k/uL RBC 3.04 L (4.30-5.90) m/uL Hgb 9.9 L (13.0-17.5) gm/dL Hct 29.3 L (39.0-53.0) % MCV 96.1 (80.0-100.0) fL MCH 32.7 (25.0-35.0) pg MCHC 34.0 (31.0-37.0) g/dL RDW 13.9 (11.5-15.5) % Plt Count 81 L (150-450) k/uL Neutrophils % 70 % Lymphocytes % 19 % Monocytes % 7 % Eosinophils % 1 % Basophils % 1 % Neutrophils # 2.5 (1.3-7.7) k/uL Lymphocytes # 0.7 L (1.0-4.8) k/uL Monocytes # 0.3 (0-1.0) k/uL Eosinophils # 0.1 (0-0.7) k/uL Basophils # 0.0 (0-0.2) k/uL Manual Slide Review Performed Ovalocytes Present Fragmented RBCs Present PT 11.1 (9.0-12.0) sec INR 1.1 (<1.1) APTT 23.9 (22.0-30.0) sec D-Dimer 15.92 H (<0.60) mg/L FEU Sodium 136 L (137-145) mmol/L Potassium 4.5 (3.5-5.1) mmol/L Chloride 103 (98-107) mmol/L Carbon Dioxide 24 (22-30) mmol/L Anion Gap 9 mmol/L BUN 41 H (9-20) mg/dL Creatinine 2.30 H (0.66-1.25) mg/dL Est GFR (MDRD) Af Amer 33 (>60 ml/min/1.73 sqM) Est GFR (MDRD) Non-Af 27 (>60 ml/min/1.73 sqM) Glucose 97 (74-99) mg/dL Calcium 8.9 (8.4-10.2) mg/dL Total Bilirubin 0.9 (0.2-1.3) mg/dL AST 35 (17-59) U/L ALT 21 (21-72) U/L Alkaline Phosphatase 56 (38-126) U/L Total Creatine Kinase (55-170) U/L CK-MB (CK-2) (0.0-2.4) ng/mL CK-MB (CK-2) Rel Index Troponin I (0.000-0.034) ng/mL Total Protein 6.3 (6.3-8.2) g/dL Albumin 3.1 L (3.5-5.0) g/dL Urine Color Urine Appearance (Clear) Urine pH (5.0-8.0) Ur Specific [place] (1.001-1.035) Urine Protein (Negative) Urine Glucose (UA) (Negative) Urine Ketones (Negative) Urine Blood (Negative) Urine Nitrite (Negative) Urine Bilirubin (Negative) Urine Urobilinogen (<2.0) mg/dL Ur Leukocyte Esterase (Negative) Urine RBC (0-5) /hpf Urine WBC (0-5) /hpf Urine Bacteria (None) /hpf 07/04/16 07/04/16 Range/Units 19:22 19:47 WBC (3.8-10.6) k/uL RBC (4.30-5.90) m/uL Hgb (13.0-17.5) gm/dL Hct (39.0-53.0) % MCV (80.0-100.0) fL MCH (25.0-35.0) pg MCHC (31.0-37.0) g/dL RDW (11.5-15.5) % Plt Count (150-450) k/uL Neutrophils % % Lymphocytes % % Monocytes % % Eosinophils % % Basophils % % Neutrophils # (1.3-7.7) k/uL Lymphocytes # (1.0-4.8) k/uL Monocytes # (0-1.0) k/uL Eosinophils # (0-0.7) k/uL Basophils # (0-0.2) k/uL Manual Slide Review Ovalocytes Fragmented RBCs PT (9.0-12.0) sec INR (<1.1) APTT (22.0-30.0) sec D-Dimer (<0.60) mg/L FEU Sodium (137-145) mmol/L Potassium (3.5-5.1) mmol/L Chloride (98-107) mmol/L Carbon Dioxide (22-30) mmol/L Anion Gap mmol/L BUN (9-20) mg/dL Creatinine (0.66-1.25) mg/dL Est GFR (MDRD) Af Amer (>60 ml/min/1.73 sqM) Est GFR (MDRD) Non-Af (>60 ml/min/1.73 sqM) Glucose (74-99) mg/dL Calcium (8.4-10.2) mg/dL Total Bilirubin (0.2-1.3) mg/dL AST (17-59) U/L ALT (21-72) U/L Alkaline Phosphatase (38-126) U/L Total Creatine Kinase 34 L (55-170) U/L CK-MB (CK-2) 0.6 (0.0-2.4) ng/mL CK-MB (CK-2) Rel Index 1.8 Troponin I <0.012 (0.000-0.034) ng/mL Total Protein (6.3-8.2) g/dL Albumin (3.5-5.0) g/dL Urine Color Yellow Urine Appearance Clear (Clear) Urine pH 7.0 (5.0-8.0) Ur Specific [place] 1.010 (1.001-1.035) Urine Protein Trace H (Negative) Urine Glucose (UA) Negative (Negative) Urine Ketones Negative (Negative) Urine Blood Moderate H (Negative) Urine Nitrite Negative (Negative) Urine Bilirubin Negative (Negative) Urine Urobilinogen <2.0 (<2.0) mg/dL Ur Leukocyte Esterase Negative (Negative) Urine RBC 39 H (0-5) /hpf Urine WBC 1 (0-5) /hpf Urine Bacteria Rare H (None) /hpf Disposition <Aquilino Valentino - Last Filed: 07/04/16 19:03> Decision to Admit Reason: Admit from EC Decision Date: 07/04/16 Decision Time: 21:43 <Gilbert Catalan - Last Filed: 07/04/16 21:43> Clinical Impression: Shortness of breath, D-dimer, elevated, BRADY (acute kidney injury), Hematuria Disposition: ADMITTED IP TO THIS HOSP
--- NOTE | 2016-07-04 18:54 | XR ---
EXAMINATION TYPE: XR chest 2V DATE OF EXAM: 07/04/2016 6:35 PM COMPARISON: Prior chest x-ray 21 June 2016 HISTORY: Cough and weakness TECHNIQUE: Frontal and lateral views of the chest are obtained on 4 images. FINDINGS: There is no focal air space opacity, pleural effusion, or pneumothorax seen. There are pro minent lung volumes. The cardiac silhouette size is thought to be stable accounting for rotation. rspace disease on prior has improved, some persistent nodularity suspected. The osseous structures ar e intact. IMPRESSION: Improvement in aeration, additional follow-up recommended. Suspect nodularity in the rig ht upper lobe.
[2016-07-04 19:44] LABS: Basophils % (A) 1 %; CHCM 34.4; Eosinophils # (A) 0.1 k/uL (0-0.7); Eosinophils % (A) 1 %; HCT 29.3 % (39.0-53.0); HDW 2.77; HGB 9.9 gm/dL (13.0-17.5); Luc # (Auto) 0.06; Luc % (Auto) 2; Lymphocytes # (A) 0.7 k/uL (1.0-4.8); Lymphocytes % (A) 19 %; MCH 32.7 pg (25.0-35.0); MCV 96.1 fL (80.0-100.0); Mean Platelet Volume 6.1; Monocytes # (A) 0.3 k/uL (0-1.0); Monocytes % (A) 7 %; Neutrophils # (A) 2.5 k/uL (1.3-7.7); Neutrophils % (A) 70 %; RBC 3.04 m/uL (4.30-5.90); RDW 13.9 % (11.5-15.5); WBC 3.6 k/uL (3.8-10.6); WBC (Perox) 3.33
[2016-07-04 19:46] LABS: Calcium 8.9 mg/dL (8.4-10.2); Potassium 4.5 mmol/L (3.5-5.1); Total Bilirubin 0.9 mg/dL (0.2-1.3); Total Protein 6.3 g/dL (6.3-8.2)
[2016-07-04 19:54] LABS: INR 1.1 (<1.1); Partial Thromboplastin Time 23.9 sec (22.0-30.0); Prothrombin Time 11.1 sec (9.0-12.0)
[2016-07-04 20:02] LABS: Manual Review Performed; Ovalocytes Present
[2016-07-04 20:08] LABS: Appearance,Urine Clear (Clear); Bacteria,Urine Rare /hpf; Bilirubin,Urine Negative (Negative); Glucose,Urine (UA) Negative (Negative); Ketones,Urine Negative (Negative); Leukocyte Esterase,Urine Negative (Negative); Nitrite,Urine Negative (Negative); Particle Count 849; Protein,Urine Trace (Negative); RBC,Urine 39 /hpf (0-5); UA Billing (MACRO vs. MICRO) MICRO; Urobilinogen,Urine <2.0 mg/dL (<2.0); WBC,Urine 1 /hpf (0-5)
[2016-07-04 20:09] LABS: Creatine Kinase 34 U/L (55-170)
[2016-07-04 20:21] LABS: Creatine Kinase MB 0.6 ng/mL (0.0-2.4); Troponin I <0.012 ng/mL (0.000-0.034)
[2016-07-04] MEDS ORDERED: DEXAMETHASONE 4 MG TAB PO STA (20:49)
[2016-07-04] MEDS ORDERED: IPRATROPIUM-ALBUTEROL 3 ML NEB INHALATION STA (20:49)
[2016-07-04] MEDS ORDERED: NALOXONE 0.4 MG/ML 1 ML VIAL IV PRN (21:21)
[2016-07-04] MEDS ORDERED: MORPHINE SULFATE 4 MG/ML SYRINGE IV PRN (21:21)
[2016-07-04] MEDS ORDERED: HEPARIN SODIUM,PORCINE 5,000 UNIT/ML 1 ML VIAL IV PRN (21:36)
[2016-07-05] MEDS: SODIUM CHLORIDE 0.9% 1,000 ML IV SCH ×2 (00:37→21:24)
[2016-07-05] MEDS: SUCRALFATE 1 GM TAB PO SCH ×5 (00:45→20:20)
[2016-07-05] MEDS: HEPARIN SODIUM,PORCINE/D5W PMX 25,000 UNIT in DEXTROSE/WATER 1 500ML.BAG IV SCH ×2 (01:06→22:42)
--- NOTE | 2016-07-05 03:15 | NM ---
Exam: NM OTHER History: Concern for pulmonary embolus. Comparison: Correlated with radiographs dated 07/04/16. Technique: VQ scan. Findings: There are several apparent matched defects in the lungs bilaterally. No definite focal consolidation on recent radiograph. Impression: Multiple matched defects suggesting low probability. If there is persistent high clinical concern, consider CTPA with renal consultation.
[2016-07-05 06:46] LABS: Basophils % (A) 0 %; CH 32.6; CHCM 33.2; Eosinophils # (A) 0.1 k/uL (0-0.7); Eosinophils % (A) 1 %; HCT 28.3 % (39.0-53.0); HDW 2.63; HGB 9.2 gm/dL (13.0-17.5); Luc # (Auto) 0.08; Luc % (Auto) 2; Lymphocytes % (A) 21 %; MCH 32.2 pg (25.0-35.0); MCHC 32.7 g/dL (31.0-37.0); MCV 98.5 fL (80.0-100.0); Mean Platelet Volume 6.4; Monocytes # (A) 0.2 k/uL (0-1.0); Monocytes % (A) 5 %; Neutrophils # (A) 3.3 k/uL (1.3-7.7); Neutrophils % (A) 71 %; RBC 2.87 m/uL (4.30-5.90); WBC 4.7 k/uL (3.8-10.6); WBC (Perox) 5.11
[2016-07-05 06:57] LABS: INR 1.1 (<1.1); Partial Thromboplastin Time 34.6 sec (22.0-30.0); Prothrombin Time 11.3 sec (9.0-12.0)
[2016-07-05] MEDS: CARVEDILOL 3.125 MG TAB PO SCH ×2 (06:57→17:35)
[2016-07-05] MEDS: PANTOPRAZOLE 40 MG TABLET PO SCH (06:58)
[2016-07-05 06:59] LABS: Calcium 8.8 mg/dL (8.4-10.2); Potassium 4.5 mmol/L (3.5-5.1)
--- NOTE | 2016-07-05 07:19 | XR ---
EXAMINATION TYPE: XR chest 2V DATE OF EXAM: 07/05/2016 6:44 AM COMPARISON: 07/04/2016 HISTORY: Shortness of breath TECHNIQUE: Frontal and lateral views of the chest are obtained. FINDINGS: Scattered senescent parenchymal changes noted. Hyperinflation compatible with COPD. No evidence for infiltrate. No evidence for atelectasis. Heart size is stable. Mediastinal structures are stable and grossly unremarkable. No evidence for hilar prominence. Degenerative changes dorsal spine. IMPRESSION: 1. No evidence for acute pulmonary disease.
[2016-07-05] MEDS ORDERED: FAMOTIDINE 20 MG TAB PO SCH (09:00)
[2016-07-05] MEDS: FERROUS SULFATE 325 MG TAB PO SCH (09:03)
[2016-07-05] MEDS: FINASTERIDE 5 MG TAB PO SCH (09:03)
[2016-07-05] MEDS ORDERED: ALBUTEROL NEBULIZED 2.5 MG/3 ML INHALATION PRN (10:29)
--- NOTE | 2016-07-05 11:11 | CT ---
EXAMINATION TYPE: CT soft tissue neck wo con DATE OF EXAM: 07/05/2016 9:28 AM COMPARISON: Cough HISTORY: Throat discomfort from coughing CT DLP: 341 mGycm Automated exposure control for dose reduction was used. Helical acquisition from the skull base throu gh the thoracic aorta arch without contrast FINDINGS: Lack of intravenous contrast could compromise sensitivity. The airway is patent. Level the true and f alse cords thought to be normal. Mild asymmetry in the appearance of the piriform sinus of questionab le clinical significance. No definite soft tissue mass. No evident adenopathy. Skull base is normal. Cerebral vascular calcifications, left carotid artery calcifications are present. The orbits show sym metric appearance. Some calcifications of the palatine tonsils likely due to chronic infection. Saliv gerda glands show symmetric appearance. There are degenerative disc disease changes in the visualized s pine, anterolisthesis grade 1 C3-4. Loss of disc height at C4-5, C5-6 and C6-7 associated with spondy losis. At C6-7 there is foraminal encroachment present. Lung apices show groundglass opacity on the right, emphysematous changes are present bilaterally. There are changes of pulmonary fibrosis. Ascend ing aorta is aneurysmal at 4 cm. Descending aorta measures 3.9 cm. Impression: There may be pneumonitis, correlate for pneumonia right upper lobe, emphysema and changes of pulmonary fibrosis. Degenerative disc disease. Ascending aortic aneurysm Noncontrast exam. Additi onal nonspecific findings above.
[2016-07-05] MEDS: IPRATROPIUM-ALBUTEROL 3 ML NEB INHALATION SCH ×3 (11:23→19:19)
[2016-07-05] MEDS ORDERED: ALBUTEROL NEBULIZED 2.5 MG/3 ML INHALATION SCH (12:00)
[2016-07-05] MEDS ORDERED: IV VANCOMYCIN PER PHARMACY 1 EACH MISC MISCELLANE PRN (14:30)
--- NOTE | 2016-07-05 14:36 | P.CNPUL ---
History of Present Illness Consult date: 07/05/16 Requesting physician: Remington Underwood Reason for consult: dyspnea Chief complaint: Source of breath History of present illness: This is an 80-year-old male being evaluated and examined today on the sixth floor. This patient is well-known to our services. This patient was recently discharged from the hospital for hemoptysis and MRSA pneumonia. She was seen by cardiothoracic surgeons and infectious disease last hospitalization. He was discharged with Linezolid antibiotics. Patient states that he has not had hemoptysis since discharge however he does feel dizziness, lightheadedness, decreased appetite and tired at all times. He denies any recent fever, chills, shortness of breath, chest pain, abdominal pain, nausea, vomiting, diarrhea, or hemoptysis. He was admitted with shortness of breath, elevated d-dimer, acute kidney injury and hematuria. Patient did have an x-ray that does show some improvement from previous. Also shows a possible nodule in the right upper lung. D-Dimer was 15.92. Patient did have a VQ scan on 07/05/2016 which revealed multiple matched deficits suggesting low probability, if there is a persistent high clinical correlation consider CTA. He was also noted to have A. fib, patient was started on low-intensity heparin without a bolus. On examination the patient is lying in bed appears very tired, he is on room air. States that he does have a productive cough that is clear. Review of Systems 14 point review of systems was completed and is negative other than what's noted in the HPI. Past Medical History Past Medical History: Atrial Fibrillation, Coronary Artery Disease (CAD), Heart Failure, COPD, CVA/TIA, Deep Vein Thrombosis (DVT), GERD/Reflux, GI Bleed, Hyperlipidemia, Memory Impairment, Myocardial Infarction (AR), Pneumonia, Prostate Disorder, Renal Disease, Vascular Disorder Additional Past Medical History / Comment(s): Pt has had streaks of blood in sputum for the past couple months, hemoptysis with lung abscess-he had a bronchoscopy with BAL 05/19/16, bollous lung disease, AAA, UNK SIZE, LT Leg DVT, renal disease stage II, hematuria, BPH, diverticulosis. Varicosities Richard LEGS, EDEMA FEET, HX FX LT Foot, LT Elbow yrs ago, Freq Gas, 11/27/14 - ADM TO [facility] W / SEV TIA'S, SOME MEMORY CHANGES NOTED. Last Myocardial Infarction Date:: unkn History of Any Multi-Drug Resistant Organisms: MRSA Date of last positivie culture/infection: 06/16/16 MDRO Source:: bronch wash Past Surgical History: Heart Catheterization, Orthopedic Surgery Additional Past Surgical History / Comment(s): 05/19/16 bronchoscopy with BAL, 2012 Colonoscopy-nl. 2008 cardiac cath-nl. RT Shoulder Bicep Tendon repair. ORIF LT elbow 2007. RT knee arthroscopy. Nasophaygeal Larynoscopy, 2013 Broncoscopy (Bronch was pos for e-coli). Past Anesthesia/Blood Transfusion Reactions: Motion Sickness Past Psychological History: No Psychological Hx Reported Additional Psychological History / Comment(s): PT IS RETIRED FROM THE [employer] AND SERVED IN THE [employer]. Smoking Status: Former smoker Past Alcohol Use History: None Reported Additional Past Alcohol Use History / Comment(s): HX Smoking cigarettes, pipe and cigars . He smoked between 1/2-1ppd for 20-30 yrs. He quit smoking in 2001 Past Drug Use History: None Reported - Past Family History Father Family Medical History: Cancer Additional Family Medical History / Comment(s): Father was an alcoholic, FROM PROSTATE CANCER at the age of 87yrs. Mother Family Medical History: Cancer Additional Family Medical History / Comment(s): UTERINE CANCER Medications and Allergies Home Medications Medication Instructions Recorded Confirmed Type Omeprazole [PriLOSEC] 20 mg PO QAM 11/27/14 07/04/16 History Acetaminophen Tab [Tylenol] 1,000 mg PO Q6HR PRN 12/23/14 07/04/16 History Ferrous Sulfate [Iron (65 MG 325 mg PO DAILY 12/23/14 07/04/16 History Elemental)] Carvedilol [Coreg] 3.125 mg PO BID 05/14/16 07/04/16 History Doxazosin [Cardura] 1 mg PO HS 05/14/16 07/04/16 History Finasteride [Proscar] 5 mg PO QAM 05/14/16 07/04/16 History Potassium Chloride [Klor-Con 10] 10 meq PO DAILY 05/14/16 07/04/16 History Aspirin 325 mg PO DAILY 07/04/16 07/04/16 History Allergies Allergy/AdvReac Type Severity Reaction Status Date / Time milk Allergy Abdominal Verified 07/04/16 19:11 Pain, GAS,freq urination Sulfa (Sulfonamide Allergy Rash/Hives Verified 07/04/16 19:11 Antibiotics) wheat Allergy Rash/Hives,freq Verified 07/04/16 19:11 urinat but states eats a little bit of wheat EGG WHITES Allergy Rash/Hives,freq Uncoded 07/04/16 18:02 urination Physical Exam Vitals: Vital Signs Temp Pulse Pulse Resp BP BP Pulse Ox 07/05/16 09:00 98.5 F 94 12 132/73 98 07/05/16 04:00 97.0 F L 91 16 145/81 97 07/05/16 00:00 97.6 F 77 18 124/78 99 07/04/16 22:28 97.6 F 77 16 124/58 99 07/04/16 22:02 99.0 F 88 18 127/79 96 Intake and Output 07/04/16 07/05/16 07/05/16 22:59 06:59 14:59 Intake Total 240 161.776 Output Total 350 500 500 Balance -350 -260 -338.224 Intake: IV 240 Heparin Sodium,Porcine/ 120 D5w Pmx 25,000 unit In Dextrose/Water 1 500ml. bag @ 10.8 UNITS/KG/HR 20 .18 mls/hr IV .Q24H [facility] Rx#:[id number] Sodium Chloride 0.9% 1, 120 000 ml @ 20 mls/hr IV . Q24H [facility] Rx#:[id number] Intake, IV Titration 161.776 Amount Heparin Sodium,Porcine/ 161.776 D5w Pmx 25,000 unit In Dextrose/Water 1 500ml. bag @ 10.8 UNITS/KG/HR 20 .18 mls/hr IV .Q24H [facility] Rx#:[id number] Output: Urine 350 500 500 Other: Voiding Method Urinal Urinal # Voids 1 1 1 Weight 93.44 kg 90.3 kg GENERAL EXAM: Alert, comfortable in no apparent distress. HEAD: Normocephalic. EYES: Normal reaction of pupils, equal size. NOSE: Clear with pink turbinates. THROAT: No erythema or exudates. NECK: No masses, no JVD. CHEST: No chest wall deformity. LUNGS: Equal air entry with no crackles, wheeze, rhonchi or dullness. Diminished CVS: S1 and S2 normal with no audible mumurs, regular rhythm. ABDOMEN: No hepatosplenomegaly, normal bowel sounds, no guarding or rigidity. EXTREMITIES: No edema noted, pedal pulses palpable. SKIN: No rashes CENTRAL NERVOUS SYSTEM: No focal deficits, tone is normal in all 4 extremities. Results - Laboratory Findings CBC and BMP: 07/05/16 05:54 07/05/16 05:54 PT/INR, D-dimer PT 11.3 sec (9.0-12.0) 07/05/16 05:54 INR 1.1 (<1.1) 07/05/16 05:54 D-Dimer 15.92 mg/L FEU (<0.60) H 07/04/16 19:22 Abnormal lab findings: Abnormal Labs 07/05/16 07/05/16 07/05/16 05:54 05:54 05:54 RBC 2.87 L Hgb 9.2 L Hct 28.3 L Plt Count 80 L APTT 34.6 H Sodium 135 L BUN 32 H Creatinine 2.10 H - Diagnostic Findings Chest x-ray: report reviewed CT scan - chest: report reviewed Assessment and Plan Plan: Assessment Acute exacerbation of COPD Right Upper lobe pneumonia, improving Elevated d-dimer Paroxysmal atrial fibrillation History of PE and DVTs Acute renal failure stage III to 4 Plan Medications have been reviewed and will be continued. Vanco added as patient previously had MRSA, and previous bronch results. We will initiate albuterol, Atrovent and budesonide nebulizers. Supplemental oxygen to keep oxygen saturations at 90% or greater. Incentive spirometer initiated and encouraged. Continue pulmonary hygiene and supportive care. Patient will undergo a bronchoscopy tomorrow. Heparin will be stopped in the morning at 8 AM. Patient also has Dr. Rocha on for nephrology, Dr. Mann on for elevated d-dimer, and Dr. Portillo on for his sore throat. GI and DVT prophylaxis. We will continue to monitor labs/results and adjust treatment as necessary. I performed an examination of the patient and discussed their management with the nurse practitioner. I have reviewed the nurse practitioner's note and agree with the documented findings and plan of care.
[2016-07-05] MEDS ORDERED: VANCOMYCIN 1,750 MG in SODIUM CHLORIDE 0.9% 250 ML IVPB ONE (15:00)
[2016-07-05] MEDS: ONDANSETRON 4 MG/2 ML VIAL IVP PRN (16:54)
[2016-07-05] MEDS: BUDESONIDE 1 MG/2 ML NEBU INHALATION SCH (19:19)
[2016-07-05] MEDS: DOXAZOSIN 1 MG TAB PO SCH (21:22)
--- NOTE | 2016-07-05 21:48 | PN ---
DATE OF SERVICE: 07/05/2016 CHIEF COMPLAINT: Weakness, malaise, and shortness of breath. HISTORY OF PRESENT ILLNESS: The gentleman continues to do poorly. He is very short of breath and wheezing present. No fever or chills and has had no hemoptysis. PHYSICAL EXAMINATION: He looks pale and chronically ill. HEENT: Head, ears, eyes, nose, mouth, and throat are normal. There are no neck masses. CHEST: Chest demonstrates poor breath sounds with increased AP diameter and scattered rales. The cardiac is normal. ABDOMEN: Soft and nontender. IMPRESSION: Weakness, shortness of breath, chronic obstructive pulmonary disease and recent right upper lobe pneumonitis with hemoptysis. PLAN: 1. Wait for recommendations from pulmonology. 2. ENT consult because he had been suspected of having a head and neck cancer, a year or [address] of the chest.
--- NOTE | 2016-07-05 22:58 | CONS ---
DATE OF CONSULTATION: REASON FOR CONSULTATION: Sore throat. HISTORY: This is an 80-year-old white male who was readmitted for pneumonia, acute exacerbation of COPD. Apparently he had a sore throat last week although denies this at present. He is having no dysphagia. In 2014 the patient did have an inflammatory mass in the hypopharynx and was treated mainly with antibiotics and this resolved, although it was quite impressive apparently; initially approximately an 8 cm "mass." Dr. Alegria had seen the patient with that workup and that treatment and last saw him in February 2015; he has not been seen since. The patient states he had some mild sore throat last week, although he attributes this to reflux. He does not now. He is having no particular respiratory difficulty and no voice changes. Past medical history is positive for: 1. CAD. 2. COPD. 3. Heart failure. 4. Myocardial infarction. 5. Pneumonia. 6. Pulmonary embolus. PAST SURGICAL HISTORY: Heart catheterization and orthopedic surgeries. ALLERGIES: SULFA and WHEAT. Current medications will not be re-enumerated, as they are in the chart already. PHYSICAL EXAM: Vital signs appear stable. Afebrile. GENERAL: This is a well-developed elderly white male in no acute distress. His voice is normal. He has no stridor. He is eating dinner without difficulty with swallowing. HEENT: Head normocephalic, atraumatic. EARS: Bilaterally canals are clear. Tympanic membranes are unremarkable and mobile. The nose shows no drainage or obstruction. A small well-healed nasal septal perforation likely from previous septoplasty. Nasopharynx unremarkable. Oropharynx shows no abnormal masses or lesions. Moist mucosa. Hypopharynx and larynx with flexible laryngoscopy show no abnormal masses or lesions. Normal vocal cord mobility. Neck is supple without adenopathy or tenderness. ASSESSMENT: 1. Recent sore throat, although resolved. 2. History of inflammatory mass, hypopharynx, with no evidence. PLAN: Note that the patient did have a CT scan this morning which showed only some mild asymmetry in the appearance of the piriform sinus of questionable clinical significance. Otherwise no definite soft tissue mass, no adenopathy. The patient likely has some asymmetry which is chronic, as he did have a quite impressive mass previously which was felt to be infectious/inflammatory. The patient does not appear to need any further workup at this point other than followup in the office with Dr. Alegria after discharge and in particular if he has any recurrent symptoms. He should follow up anyway for repeat flexible laryngoscopy due to the mild asymmetry. I reviewed this with the patient and his family today. If there are questions or concerns, please feel contact me. PROCEDURE NOTE PREOPERATIVE DIAGNOSIS: Sore throat. POSTOPERATIVE DIAGNOSIS: Sore throat. PROCEDURE: Flexible laryngoscopy. ANESTHESIA: None. COMPLICATIONS: None. FINDINGS: No particular abnormal masses or lesions. No erythema in the oropharynx, hypopharynx or larynx. PROCEDURE: Patient was in his hospital bed and flexible laryngoscopy was performed through the left nasal cavity. There is a well-healed nasal septal perforation also likely from previous septoplasty. There is a very small. Flexible laryngoscopy was performed to examine the left nasal cavity, nasopharynx, oropharynx, hypopharynx and larynx with normal vocal cord mobility and no abnormalities otherwise noted. Patient tolerated this well with no complications.
[2016-07-06 06:47] LABS: Basophils % (A) 1 %; CH 32.7; CHCM 33.2; Eosinophils # (A) 0.1 k/uL (0-0.7); Eosinophils % (A) 3 %; HCT 26.4 % (39.0-53.0); HDW 2.66; HGB 8.7 gm/dL (13.0-17.5); Luc # (Auto) 0.04; Luc % (Auto) 1; Lymphocytes # (A) 0.6 k/uL (1.0-4.8); Lymphocytes % (A) 16 %; MCH 32.8 pg (25.0-35.0); MCHC 33.1 g/dL (31.0-37.0); Mean Platelet Volume 6.6; Monocytes # (A) 0.2 k/uL (0-1.0); Monocytes % (A) 5 %; Neutrophils # (A) 2.5 k/uL (1.3-7.7); Neutrophils % (A) 73 %; RBC 2.67 m/uL (4.30-5.90); RDW 14.1 % (11.5-15.5); WBC 3.4 k/uL (3.8-10.6); WBC (Perox) 3.68
[2016-07-06 06:57] LABS: INR 1.1 (<1.1); Partial Thromboplastin Time 62.1 sec (22.0-30.0); Prothrombin Time 11.3 sec (9.0-12.0)
[2016-07-06 07:29] LABS: Calcium 8.5 mg/dL (8.4-10.2); Potassium 4.6 mmol/L (3.5-5.1); Total Protein 5.9 g/dL (6.3-8.2)
[2016-07-06 07:30] LABS: Total Bilirubin 1.1 mg/dL (0.2-1.3)
[2016-07-06] MEDS: BUDESONIDE 1 MG/2 ML NEBU INHALATION SCH ×2 (08:29→19:59)
[2016-07-06] MEDS: IPRATROPIUM-ALBUTEROL 3 ML NEB INHALATION SCH ×4 (08:29→19:59)
[2016-07-06] MEDS: SUCRALFATE 1 GM TAB PO SCH ×4 (08:35→20:27)
[2016-07-06] MEDS: PANTOPRAZOLE 40 MG TABLET PO SCH (08:36)
[2016-07-06] MEDS: CARVEDILOL 3.125 MG TAB PO SCH ×2 (08:41→17:24)
[2016-07-06] MEDS: VANCOMYCIN 1,500 MG in SODIUM CHLORIDE 0.9% 250 ML IVPB SCH (10:49)
--- NOTE | 2016-07-06 12:35 | P.PN ---
Subjective This is an 80-year-old male being evaluated and examined today on the sixth floor. This patient is well-known to our services. This patient was recently discharged from the hospital for hemoptysis and MRSA pneumonia. She was seen by cardiothoracic surgeons and infectious disease last hospitalization. He was discharged with Linezolid antibiotics. Patient states that he has not had hemoptysis since discharge however he does feel dizziness, lightheadedness, decreased appetite and tired at all times. He denies any recent fever, chills, shortness of breath, chest pain, abdominal pain, nausea, vomiting, diarrhea, or hemoptysis. He was admitted with shortness of breath, elevated d-dimer, acute kidney injury and hematuria. Patient did have an x-ray that does show some improvement from previous. Also shows a possible nodule in the right upper lung. D-Dimer was 15.92. Patient did have a VQ scan on 07/05/2016 which revealed multiple matched deficits suggesting low probability, if there is a persistent high clinical correlation consider CTA. He was also noted to have A. fib, patient was started on low-intensity heparin without a bolus. On examination the patient is lying in bed appears very tired, he is on room air. States that he does have a productive cough that is clear. Patient is feeling about the same as yesterday, he states no significant improvement noted. Patient will have a bronch today. Objective - Vital Signs Vital signs: Vital Signs Temp 98.1 F 07/06/16 08:40 Pulse 88 07/06/16 11:55 Resp 16 07/06/16 08:40 BP 100/57 07/06/16 08:40 Pulse Ox 100 07/06/16 08:40 Intake & Output 07/05/16 07/06/16 07/06/16 18:59 06:59 18:59 Intake Total 1166.103 781.855 183.383 Output Total 1325 1400 Balance -158.897 -618.145 183.383 Weight 102 kg Intake: IV 320 160 Heparin Sodium,Porcine/ 160 80 D5w Pmx 25,000 unit In Dextrose/Water 1 500ml. bag @ 10.8 UNITS/KG/HR 20 .18 mls/hr IV .Q24H COUNT INCLUDES THE [facility] Rx#:[id number] Sodium Chloride 0.9% 1, 160 80 000 ml @ 20 mls/hr IV . Q24H [facility] Rx#:[id number] Intake, IV Titration 346.103 141.855 183.383 Amount Heparin Sodium,Porcine/ 346.103 141.855 183.383 D5w Pmx 25,000 unit In Dextrose/Water 1 500ml. bag @ 10.8 UNITS/KG/HR 20 .18 mls/hr IV .Q24H [facility] Rx#:[id number] Oral 500 480 Output: Urine 1325 1400 Other: Voiding Method Urinal Urinal Urinal # Voids 1 1 - Exam GENERAL EXAM: Alert, comfortable in no apparent distress. HEAD: Normocephalic. EYES: Normal reaction of pupils, equal size. NOSE: Clear with pink turbinates. THROAT: No erythema or exudates. NECK: No masses, no JVD. CHEST: No chest wall deformity. LUNGS: Equal air entry with no crackles, wheeze, rhonchi or dullness. Diminished CVS: S1 and S2 normal with no audible mumurs, regular rhythm. ABDOMEN: No hepatosplenomegaly, normal bowel sounds, no guarding or rigidity. EXTREMITIES: No edema noted, pedal pulses palpable. SKIN: No rashes CENTRAL NERVOUS SYSTEM: No focal deficits, tone is normal in all 4 extremities. - Labs CBC & Chem 7: 07/06/16 06:28 07/06/16 06:28 Labs: Abnormal Lab Results - Last 24 Hours (Table) 07/05/16 07/05/16 07/06/16 Range/Units 15:14 21:42 06:28 WBC 3.4 L (3.8-10.6) k/uL RBC 2.67 L (4.30-5.90) m/uL Hgb 8.7 L (13.0-17.5) gm/dL Hct 26.4 L (39.0-53.0) % Plt Count 71 L (150-450) k/uL Lymphocytes # 0.6 L (1.0-4.8) k/uL APTT 93.3 H 68.6 H (22.0-30.0) sec Sodium (137-145) mmol/L BUN (9-20) mg/dL Creatinine (0.66-1.25) mg/dL ALT (21-72) U/L Total Protein (6.3-8.2) g/dL Albumin (3.5-5.0) g/dL 07/06/16 07/06/16 Range/Units 06:28 06:28 WBC (3.8-10.6) k/uL RBC (4.30-5.90) m/uL Hgb (13.0-17.5) gm/dL Hct (39.0-53.0) % Plt Count (150-450) k/uL Lymphocytes # (1.0-4.8) k/uL APTT 62.1 H (22.0-30.0) sec Sodium 134 L (137-145) mmol/L BUN 27 H (9-20) mg/dL Creatinine 1.97 H (0.66-1.25) mg/dL ALT 20 L (21-72) U/L Total Protein 5.9 L (6.3-8.2) g/dL Albumin 2.8 L (3.5-5.0) g/dL Assessment and Plan Plan: Assessment Acute exacerbation of COPD Right Upper lobe pneumonia, improving Elevated d-dimer Paroxysmal atrial fibrillation History of PE and DVTs Acute renal failure stage III to 4 Plan Medications have been reviewed and will be continued. Vanco added as patient previously had MRSA, and previous bronch results. We will initiate albuterol, Atrovent and budesonide nebulizers. Supplemental oxygen to keep oxygen saturations at 90% or greater. Incentive spirometer initiated and encouraged. Continue pulmonary hygiene and supportive care. Patient will undergo a bronchoscopy today. Patient also has Dr. Rocha on for nephrology, Dr. Mann on for elevated d-dimer, and Dr. Portillo on for his sore throat. GI and DVT prophylaxis. We will continue to monitor labs/results and adjust treatment as necessary. I performed an examination of the patient and discussed their management with the nurse practitioner. I have reviewed the nurse practitioner's note and agree with the documented findings and plan of care.
[2016-07-06] MEDS ORDERED: IV FLUID CONTINUATION 1,000 ML IV ONE ×2 (12:56)
--- NOTE | 2016-07-06 13:00 | CONS ---
DATE OF CONSULTATION: 07/06/16 REASON FOR CONSULTATION: Renal failure. HISTORY OF PRESENT ILLNESS: Patient is an 80-year-old male with history of CKD, NKF stage IIIB to IV with baseline GFR about 30 to 33 mL per minute with baseline creatinine about 1.8 to 1.7 mg/dL. Patient was admitted to the hospital with complaints of weakness, not eating well. He has been coughing as well according to family. He was recently discharged from hospital after being treated for pneumonia. He had MRSA in the sputum and was maintained on Zyvox. Serum creatinine this admission was at 2.1 mg/dL, it is now down to 1.97. Patient is maintained on IV fluids. Patient is currently not on IV fluids. He did received IV fluids initially at the time of admission. He is currently voiding. Patient has been evaluated by ENT for concern for hypopharynx inflammatory mass. He did have a significant inflammatory mass on his last admission about 8 cm, which seems to have improved. 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 fib, coronary artery disease, CHF, EF not known, COPD, history of CVA/TIA, DVT, history of GI bleed, hyperlipidemia, pneumonia, IA, peripheral vascular disease, diverticulosis. PAST SURGICAL HISTORY: Cardiac catheterization, bronchoscopy, recent bicep tendon repair, ORIF left elbow, right knee arthroscopy. SOCIAL HISTORY: The patient is a former smoker. No history of drug abuse or alcohol abuse. REVIEW OF SYSTEMS: As per HPI, other systems negative. Allergies include SULFA, EGG WHITES, WHEAT and MILK. Medications prior to admission included Prilosec, Tylenol, iron, Coreg, Cardura, Proscar, potassium, aspirin. On examination, the patient is comfortable, awake. He is not in any acute distress. Blood pressure is 100/57, heart rate 96 per minute. He is afebrile. EXAMINATION OF THE HEART: S1 and S2. EXAMINATION OF THE LUNGS: Bilateral breath sounds are heard. Abdomen is soft, nontender. Examination of the lower extremities shows no evidence of edema. COGNOS LEAD exam is grossly intact. Labs show sodium 134, potassium 4.6, serum creatinine 1.97. Hemoglobin 8.7 g/dL. UA shows trace protein, moderate blood, RBCs 39 and WBCs one. ASSESSMENT: 1. Chronic kidney disease, NKF stage IIIB secondary to nephrosclerosis. Renal function fairly stable. 2. Acute kidney injury with some improvement in renal function since admission. Currently patient is not on any IV fluids. He has not been eating much. He is not on diuretics. I will start gentle IV hydration. He does not appear to be volume overloaded. 3. Right lung pneumonia. 4. Paroxysmal atrial fibrillation. 5. History of pulmonary embolism and deep venous thromboses. 6. Previous history of methicillin-resistant Staphylococcus aureus infection in the sputum. PLAN: Start gentle IV hydration. Encourage increased oral intake. Repeat labs in the a.m. Continue to avoid nephrotoxic agents. Thank you for this consultation. Will continue to follow the patient with you during his hospitalization. KIRAN
[2016-07-06] MEDS ORDERED: LIDOCAINE 1% INJ 10MG/ML (20 ML MDV) ONE (13:38)
[2016-07-06] MEDS ORDERED: PROPOFOL 10 MG/ML 20 ML VIAL IV ONE (13:38)
[2016-07-06] MEDS ORDERED: LIDOCAINE 2% INJ 20 MG/ML INTRATRACH ONE (13:58)
[2016-07-06] MEDS: SODIUM CHLORIDE 0.9% 1,000 ML IV SCH (15:11)
[2016-07-06] MEDS: FAMOTIDINE 20 MG TAB PO SCH (15:11)
[2016-07-06] MEDS: FINASTERIDE 5 MG TAB PO SCH (15:12)
[2016-07-06] MEDS: FERROUS SULFATE 325 MG TAB PO SCH (15:12)
[2016-07-06] MEDS: ACETAMINOPHEN TAB 325 MG TAB PO PRN (15:19)
--- NOTE | 2016-07-06 17:34 | US ---
EXAMINATION TYPE: US venous doppler duplex UE LT DATE OF EXAM: 07/06/2016 4:51 PM COMPARISON: NONE CLINICAL HISTORY: Rule out DVT. SIDE PERFORMED: Left Left Arm: Negative for DVT IMPRESSION: There is no evidence of deep venous thrombosis in the left arm. There is evaluation of the left jugul ar subclavian axillary brachial vein.
--- NOTE | 2016-07-06 19:33 | HP ---
DATE OF ADMISSION: CHIEF COMPLAINT: Shortness of breath, weakness and malaise. HISTORY OF PRESENT ILLNESS: This is another admission for this 80-year-old white male. He was in the hospital a month or 2 ago with hemoptysis. He has been treated for right upper lobe pneumonia since then and it has been clearing. He was on long-term anticoagulation for atrial fib. He has not been on anticoagulant since he left the hospital. He presented back to the emergency room with weakness, malaise, cough, but he had no hemoptysis, fever, chest pain, orthopnea, etc. He was worked up a year or so ago for the possibility of a neoplasm of the neck area but he has had no recurrence of a full feeling or pain in that area. REVIEW OF SYSTEMS: He denies any other problems. He just feels weak and lethargic. He had no chest pain. He has had no focal neurologic deficits, orthopnea, PND, abdominal pain, vomiting, nausea, diarrhea, melena, hematochezia, hematuria, frequency, urgency, etc. He is not diabetic. He does have renal failure. Past medical history, family history and personal and social histories reveal he is ALLERGIC TO ERYTHROMYCIN, EGGS, MARIBEL INHIBITORS AND SULFA. He is on Pepcid, finasteride, omeprazole, Carafate, K-Chlor, doxazosin, full-strength aspirin. He has been treated in the past for MRSA pneumonia. PAST SURGICAL HISTORY: He has had procedure on the left foot, right shoulder and right knee. Used to smoke but he quit long ago. PHYSICAL EXAMINATION: VITAL SIGNS: Blood pressure 100/56 with a pulse of 96 and irregular, respirations were 36. He is afebrile. GENERAL: He appeared to be pale and chronically ill. Seemed to be a little bit more lethargic than normal. Head, ears, eyes, nose, mouth, and throat were normal. Neck veins not distended. The carotids are normal. Chest demonstrated increased AP diameter with poor breath sounds throughout. There are occasional rales and rhonchi. Cardiac exam demonstrated atrial fibrillation and there was an S4. Abdomen is soft and there are no masses. Extremities are normal. Neurologically, other than being a little bit more lethargic than normal, he was intact. He was admitted to the hospital with diagnoses: 1. Shortness of breath with elevated d-dimer. 2. Congestive heart failure. 3. Chronic obstructive pulmonary disease. 4. Recent right upper lobe pneumonitis with methicillin-resistant Staphylococcus aureus and hemoptysis. PLAN: 1. Bed rest. 2. IV fluids. 3. Appropriate cultures. 4. Pulmonology consult.
--- NOTE | 2016-07-06 20:00 | PN ---
DATE OF SERVICE: 07/06/2016 CHIEF COMPLAINT: Unexplained shortness of breath. HISTORY OF PRESENT ILLNESS: This gentleman is still little bit more lethargic than normal. He is complaining of some pain in the left posterior shoulder now. He is going today for a bronch. PHYSICAL EXAMINATION: Breath sounds are diminished on both sides. There are occasional rales and rhonchi. CARDIAC: Normal. ABDOMEN: Soft, nontender. IMPRESSION: 1. Left arm pain. 2. Failure to thrive. 3. Chronic obstructive pulmonary disease. PLAN: He is going for bronchoscopy today.
[2016-07-06] MEDS: DOXAZOSIN 1 MG TAB PO SCH (20:27)
--- NOTE | 2016-07-06 20:36 | US ---
EXAMINATION TYPE: US venous doppler duplex LE BI DATE OF EXAM: 07/06/2016 8:23 PM COMPARISON: 12/17/2013 CLINICAL HISTORY: elevated D dimer. SIDE PERFORMED: Bilateral TECHNIQUE: The lower extremity deep venous system is examined utilizing real time linear array sonog kike with graded compression, doppler sonography and color-flow sonography. VESSELS IMAGED: External Iliac Vein (EIV) Common Femoral Vein Deep Femoral Vein Greater Saphenous Vein * Femoral Vein Popliteal Vein Small Saphenous Vein * Proximal Calf Veins (* superficial vessels) Right Leg: Positive for DVT from the right femoral vein to the proximal calf veins. Unable to fully compress, however there is thready flow visualized Left Leg: Positive for DVT from the left femoral vein to the proximal calf veins. 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
[2016-07-06] MEDS ORDERED: RX INFO: IV CONTRAST WAS GIVEN 1 EACH MISC MISCELLANE PRN (22:34)
--- NOTE | 2016-07-06 22:56 | P.CONS ---
History of Present Illness - Reason for Consult Consult date: 07/06/16 Elevated D Dimer - History of Present Illness The patient is an 80-year-old gentleman, initially seen in consult in 11/12. He had come to the hospital because of a 3 to four-week history of increasing difficulty in swallowing, as well as cough with fairly copious expectoration that was quite prominent in the morning. He had a computed tomography scan of the soft tissue of the neck done, which showed evidence of a large mass in the left parapharyngeal space. The consult was therefore placed for further evaluation. The mass was about 8 cm in extent, extending from the left tonsillar pillar, down to the left piriform sinus, and extending over to the right piriform sinus involving the soft tissue of the posterior pharynx. CTA of the chest was negative for any evidence of metastasis. The soft tissue of the neck did not show any definite lymph node enlargement. He had a biopsy that was s/o an abcess. He was treated with antibiotics, and had another biopsy in 12/12. This was again negative for malignancy. He had a CT neck and CT CAP in 03/15, negative for any evidence of malignancy. Thus, further Oncology f/u was not recommended. The pt has had recurrent admissions since, especially in 2017, for pneumonia , related to MRSA. Bronchoscopy in 05/14 was negative. He was recently discharged for pneumonia, and then readmitted with recurrent SOB. CXR showed improved lung infiltrates, but some nodularity in the RUL. D dimer was elevated at 15.43. VQ scan showed low probability for PE. Doppler of the UE was negative. Consult was thus placed for further evaluation. Review of Systems Constitutional: Reports fatigue, Reports poor appetite, Reports weakness, Reports weight loss Eyes: denies blurred vision, denies pain Ears: deny: decreased hearing, ear discharge, earache, tinnitus Ears, nose, mouth and throat: Reports as per HPI Cardiovascular: Reports shortness of breath Respiratory: Reports dyspnea, Reports respiratory infections Gastrointestinal: Denies abdominal pain, Denies diarrhea, Denies nausea, Denies vomiting Genitourinary: Reports as per HPI (no specific complaints) Musculoskeletal: Reports muscle weakness Integumentary: Denies pruritus, Denies rash Neurological: Reports weakness Psychiatric: Denies anxiety, Denies depression Endocrine: Reports fatigue, Reports weight change Hematologic/Lymphatic: Reports as per HPI Past Medical History Past Medical History: Atrial Fibrillation, Coronary Artery Disease (CAD), Heart Failure, COPD, CVA/TIA, Deep Vein Thrombosis (DVT), GERD/Reflux, GI Bleed, Hyperlipidemia, Memory Impairment, Myocardial Infarction (RI), Pneumonia, Prostate Disorder, Renal Disease, Vascular Disorder Additional Past Medical History / Comment(s): Pt has had streaks of blood in sputum for the past couple months, hemoptysis with lung abscess-he had a bronchoscopy with BAL 05/19/16, bollous lung disease, AAA, UNK SIZE, LT Leg DVT, renal disease stage II, hematuria, BPH, diverticulosis. Varicosities Richard LEGS, EDEMA FEET, HX FX LT Foot, LT Elbow yrs ago, Priyanka Roth, 11/27/14 - ADM TO [facility] W / SEV TIA'S, SOME MEMORY CHANGES NOTED. Last Myocardial Infarction Date:: unkn History of Any Multi-Drug Resistant Organisms: MRSA Year Discovered:: 06/16/16 MDRO Source:: bronch wash Past Surgical History: Heart Catheterization, Orthopedic Surgery Additional Past Surgical History / Comment(s): 05/19/16 bronchoscopy with BAL, 2012 Colonoscopy-nl. 2008 cardiac cath-nl. RT Shoulder Bicep Tendon repair. ORIF LT elbow 2007. RT knee arthroscopy. Nasophaygeal Larynoscopy, 2013 Broncoscopy (Bronch was pos for e-coli). Past Anesthesia/Blood Transfusion Reactions: Motion Sickness Past Psychological History: No Psychological Hx Reported Additional Psychological History / Comment(s): PT IS RETIRED FROM THE [employer] AND SERVED IN THE [employer]. Smoking Status: Former smoker Past Alcohol Use History: None Reported Additional Past Alcohol Use History / Comment(s): HX Smoking cigarettes, pipe and cigars . He smoked between 1/2-1ppd for 20-30 yrs. He quit smoking in 2001 Past Drug Use History: None Reported - Past Family History Father Family Medical History: Cancer Additional Family Medical History / Comment(s): Father was an alcoholic, FROM PROSTATE CANCER at the age of 87yrs. Mother Family Medical History: Cancer Additional Family Medical History / Comment(s): UTERINE CANCER Medications and Allergies Home Medications Medication Instructions Recorded Confirmed Type Omeprazole [PriLOSEC] 20 mg PO QAM 11/27/14 07/04/16 History Acetaminophen Tab [Tylenol] 1,000 mg PO Q6HR PRN 12/23/14 07/04/16 History Ferrous Sulfate [Iron (65 MG 325 mg PO DAILY 12/23/14 07/04/16 History Elemental)] Carvedilol [Coreg] 3.125 mg PO BID 05/14/16 07/04/16 History Doxazosin [Cardura] 1 mg PO HS 05/14/16 07/04/16 History Finasteride [Proscar] 5 mg PO QAM 05/14/16 07/04/16 History Potassium Chloride [Klor-Con 10] 10 meq PO DAILY 05/14/16 07/04/16 History Aspirin 325 mg PO DAILY 07/04/16 07/04/16 History Allergies Allergy/AdvReac Type Severity Reaction Status Date / Time Sulfa (Sulfonamide Allergy Rash/Hives Verified 07/04/16 19:11 Antibiotics) Physical Exam Vitals: Vital Signs Temp Pulse Pulse Resp BP Pulse Ox 07/06/16 17:23 98.1 F 07/06/16 15:15 92 16 115/71 98 07/06/16 15:00 96 131/83 98 07/06/16 14:45 102 H 16 105/63 98 07/06/16 14:29 100 16 120/68 100 07/06/16 14:15 110 H 20 92/69 100 07/06/16 14:07 99.2 F 95 21 105/66 98 07/06/16 12:15 86 16 107/56 96 07/06/16 11:55 88 07/06/16 11:42 88 07/06/16 08:53 96 07/06/16 08:40 98.1 F 85 16 100/57 100 07/06/16 08:31 96 07/06/16 04:00 97.8 F 86 17 110/58 98 07/05/16 23:05 98.1 F 88 16 104/50 97 Intake and Output 07/06/16 07/06/16 07/06/16 06:59 14:59 22:59 Intake Total 640 933.383 363.12 Output Total 1400 Balance -760 933.383 363.12 Intake: IV 160 750 Heparin Sodium,Porcine/ 80 D5w Pmx 25,000 unit In Dextrose/Water 1 500ml. bag @ 10.8 UNITS/KG/HR 20 .18 mls/hr IV .Q24H BRENDA Rx#:[id number] Sodium Chloride 0.9% 1, 80 000 ml @ 20 mls/hr IV . Q24H BRENDA Rx#:[id number] Sodium Chloride 0.9% 1, 600 000 ml @ 50 mls/hr IV . Q20H BRENDA Rx#:[id number] Intake, IV Titration 183.383 141.12 Amount Heparin Sodium,Porcine/ 183.383 141.12 D5w Pmx 25,000 unit In Dextrose/Water 1 500ml. bag @ 10.8 UNITS/KG/HR 20 .18 mls/hr IV .Q24H BRENDA Rx#:[id number] Oral 480 222 Output: Urine 1400 Other: Voiding Method Urinal Urinal Urinal # Voids 1 3 Weight 102 kg - Constitutional General appearance: no acute distress - EENT Eyes: EOMI, PERRLA ENT: hearing grossly normal, normal oropharynx - Neck Neck: no lymphadenopathy Thyroid: bilateral: normal size - Respiratory Respiratory: bilateral: diminished - Cardiovascular Rhythm: irregularly irregular Heart sounds: normal: S1, S2 - Gastrointestinal General gastrointestinal: normal bowel sounds, soft - Integumentary Integumentary: normal - Neurologic Neurologic: CNII-XII intact - Musculoskeletal Musculoskeletal: strength equal bilaterally - Psychiatric Psychiatric: A&O x's 3, appropriate affect Results CBC & Chem 7: 07/06/16 06:28 07/06/16 06:28 Labs: Abnormal Lab Results - Last 24 Hours (Table) 07/06/16 07/06/16 07/06/16 Range/Units 06:28 06:28 06:28 WBC 3.4 L (3.8-10.6) k/uL RBC 2.67 L (4.30-5.90) m/uL Hgb 8.7 L (13.0-17.5) gm/dL Hct 26.4 L (39.0-53.0) % Plt Count 71 L (150-450) k/uL Lymphocytes # 0.6 L (1.0-4.8) k/uL APTT 62.1 H (22.0-30.0) sec Sodium 134 L (137-145) mmol/L BUN 27 H (9-20) mg/dL Creatinine 1.97 H (0.66-1.25) mg/dL ALT 20 L (21-72) U/L Total Protein 5.9 L (6.3-8.2) g/dL Albumin 2.8 L (3.5-5.0) g/dL 07/06/16 Range/Units 20:43 WBC (3.8-10.6) k/uL RBC (4.30-5.90) m/uL Hgb (13.0-17.5) gm/dL Hct (39.0-53.0) % Plt Count (150-450) k/uL Lymphocytes # (1.0-4.8) k/uL APTT 48.8 H (22.0-30.0) sec Sodium (137-145) mmol/L BUN (9-20) mg/dL Creatinine (0.66-1.25) mg/dL ALT (21-72) U/L Total Protein (6.3-8.2) g/dL Albumin (3.5-5.0) g/dL Microbiology - Last 24 Hours (Table) 07/06/16 14:00 Bronchial Washings Culture - Preliminary Bronchial Washings - Right 07/06/16 14:00 Fungal Culture - Preliminary Bronchial Washings - Right 07/06/16 14:00 Acid Fast Bacilli Culture - Preliminary Bronchial Washings - Right Chest x-ray: report reviewed CT scan - abdomen: report reviewed CT scan - chest: report reviewed CT scan - pelvis: report reviewed Venous US: report reviewed (VQ scan report reviewed, path report from bronch reviewed) Assessment and Plan (1) D-dimer, elevated Narrative/Plan: D Dimer elevation in this pt with recent hospitalization and acute illness, blood draws and IV placement , is quite non specific. VQ scan and UE doppler did not show any evidence of VTE. I will check LE doppler to complete w/u. If negative, further w/u would not be recommended. While LE doppler is pending, the pt is on IV heparin anyway, for his a fib. Status: Acute (2) Neck mass Narrative/Plan: That was extensively worked up previously, with no evidence of malignancy, and resolution with antibiotics. There is no evidence of recurrence and no new symptoms in this regard Status: Acute (3) Pneumonia Narrative/Plan: He has had recurrent pneumonias, with CXR showing clearing, but now possible nodularity in the RUL ( ? previously obscured by infiltrates). Repeat bronchoscopy is planned Status: Acute (4) Bicytopenia Narrative/Plan: This could be related to marrow suppression from recent acute illnesses and antibiotics. AOCKD and early MDS are also possibilities as contibuting etiologies. Counts are in a safe range and do not require acute intervention. Lab w/u will be ordered. Status: Acute
--- NOTE | 2016-07-07 00:29 | CT ---
EXAM: CT Angiography Chest With Intravenous Contrast CLINICAL HISTORY: Reason: positive for dvt and possible PE TECHNIQUE: Axial computed tomographic angiography images of the chest with intravenous contrast using pulmonary embolism protocol. CTDI is 3.0, 3.2, 115.1, and 9.5 mGy and DLP is 424.7 mGy-cm This CT exam was performed using one or more of the following dose reduction techniques: automated exposure control, adjustment of the mA and/or kV according to patient size, and/or use of iterative reconstruction technique. MIP reconstructed images were created and reviewed. COMPARISON: CT 11/08/14. FINDINGS: Pulmonary arteries: Suboptimal opacification but no filling defects to suggest PE. Peripheral vessels not well evaluated. Aorta: Aneurysmal dilatation of the thoracic aorta with the ascending measuring approximately 4.3 cm and descending measuring 3.6 cm. No evidence of aortic dissection. Atherosclerotic disease. Lungs: Patchy bilateral groundglass and reticulonodular infiltrates most prominent in the right upper lobe. Mild peribronchial thickening with areas of mucus plugging. Small scattered pulmonary nodules. Chronic cystic and fibrotic lung changes. Pleural space: No significant effusion. No pneumothorax. Heart: Unremarkable. Bones/joints: No acute fracture. Soft tissues: Unremarkable. Lymph nodes: Small mediastinal and hilar lymph nodes. IMPRESSION: 1. No evidence of PE with limitations, as above. 2. Patchy bilateral groundglass and reticulonodular infiltrates most prominent in the right upper lobe. Mild peribronchial thickening with areas of mucus plugging. Correlate clinically for inflammatory/infectious process. Small scattered pulmonary nodules. Consider followup imaging if clinically indicated. 3. Stable aneurysmal thoracic aorta.
[2016-07-07] MEDS: SODIUM CHLORIDE 0.9% 1,000 ML IV SCH ×2 (06:23→18:05)
[2016-07-07] MEDS: HEPARIN SODIUM,PORCINE/D5W PMX 25,000 UNIT in DEXTROSE/WATER 1 500ML.BAG IV SCH (06:26)
[2016-07-07] MEDS: PANTOPRAZOLE 40 MG TABLET PO SCH (06:26)
[2016-07-07] MEDS: CARVEDILOL 3.125 MG TAB PO SCH ×2 (06:27→17:33)
[2016-07-07 06:39] LABS: Basophils % (A) 1 %; CH 32.5; CHCM 33.1; Eosinophils # (A) 0.1 k/uL (0-0.7); Eosinophils % (A) 4 %; HCT 24.3 % (39.0-53.0); HDW 2.65; HGB 8.1 gm/dL (13.0-17.5); Luc # (Auto) 0.07; Luc % (Auto) 3; Lymphocytes # (A) 0.6 k/uL (1.0-4.8); Lymphocytes % (A) 20 %; MCH 32.8 pg (25.0-35.0); MCHC 33.2 g/dL (31.0-37.0); MCV 98.9 fL (80.0-100.0); Macrocytosis Slight; Mean Platelet Volume 7.1; Monocytes # (A) 0.2 k/uL (0-1.0); Monocytes % (A) 7 %; Neutrophils # (A) 1.9 k/uL (1.3-7.7); Neutrophils % (A) 66 %; RBC 2.46 m/uL (4.30-5.90); RDW 14.1 % (11.5-15.5); WBC 2.9 k/uL (3.8-10.6); WBC (Perox) 2.83
[2016-07-07 06:49] LABS: Reticulocyte % 1.5 % (0.5-2.0)
--- NOTE | 2016-07-07 07:04 | PCN ---
DATE OF PROCEDURE: PROCEDURES: 1. Bronchoscopy. 2. Bronchioalveolar lavage of the right upper lobe and right lower lobe. INDICATIONS: 1. History of hemoptysis. 2. Methicillin-resistant Staphylococcus aureus pneumonia. 3. Right upper lobe pneumonia. 4. Severe chronic obstructive pulmonary disease, emphysema. OPERATIVE DETAIL: Patient was prepared and draped in the usual fashion. For anesthesia, please refer to anesthesia note. Tip of the scope was passed through the right naris. The vocal cords were normal in structure and function. Tip of the scope was passed beyond the vocal cords into trachea. Diffuse right erythema and edema was bilaterally present. No source of bleeding has been identified. The raw appearance of mucosa that was previously seen has improved though, but clearly inflammatory process appears to be present with thick purulent secretions and mucous plugs present bilaterally, more so on the right side compared to the left side. Tip of the scope was wedged in the right upper lobe apical segment and BAL was performed followed by taking it to the right lower lobe where BAL was performed as well. Right middle lobe along with subsegments and the right upper and lower lobe along with subsegments inspected. Tip of the scope was subsequently passed on the left side. Pulmonary toilet suctioning and removal of mucous plug was performed followed by inspection of the airway involving the left upper lobe, lingular lobe and left lower lobe. No endobronchial mass or lesion identified. Patient tolerated the procedure well. No complications noted. Fluid is being sent for Gram stain, culture and cytology. The patient tolerated the procedure well. No complication noted.
[2016-07-07 07:25] LABS: Calcium 8.4 mg/dL (8.4-10.2); Total Protein 6.1 g/dL (6.3-8.2)
[2016-07-07 07:26] LABS: Potassium 5.1 mmol/L (3.5-5.1)
[2016-07-07] MEDS: BUDESONIDE 1 MG/2 ML NEBU INHALATION SCH ×2 (07:29→20:15)
[2016-07-07] MEDS: IPRATROPIUM-ALBUTEROL 3 ML NEB INHALATION SCH ×4 (07:29→20:15)
[2016-07-07] MEDS: FAMOTIDINE 20 MG TAB PO SCH (07:53)
[2016-07-07] MEDS: SUCRALFATE 1 GM TAB PO SCH ×4 (07:53→21:56)
[2016-07-07] MEDS: FERROUS SULFATE 325 MG TAB PO SCH (07:53)
[2016-07-07] MEDS: FINASTERIDE 5 MG TAB PO SCH (07:54)
[2016-07-07] MEDS: VANCOMYCIN 1,500 MG in SODIUM CHLORIDE 0.9% 250 ML IVPB SCH (08:31)
--- NOTE | 2016-07-07 10:36 | P.PN ---
Subjective This is an 80-year-old male being evaluated and examined today on the sixth floor. This patient is well-known to our services. This patient was recently discharged from the hospital for hemoptysis and MRSA pneumonia. She was seen by cardiothoracic surgeons and infectious disease last hospitalization. He was discharged with Linezolid antibiotics. Patient states that he has not had hemoptysis since discharge however he does feel dizziness, lightheadedness, decreased appetite and tired at all times. He denies any recent fever, chills, shortness of breath, chest pain, abdominal pain, nausea, vomiting, diarrhea, or hemoptysis. He was admitted with shortness of breath, elevated d-dimer, acute kidney injury and hematuria. Patient did have an x-ray that does show some improvement from previous. Also shows a possible nodule in the right upper lung. D-Dimer was 15.92. Patient did have a VQ scan on 07/05/2016 which revealed multiple matched deficits suggesting low probability, if there is a persistent high clinical correlation consider CTA. He was also noted to have A. fib, patient was started on low-intensity heparin without a bolus. Yesterday the patient was noted to have a left upper extremity swelling and pain above the IV site. The IV was flushed and seemed patent however they just decided to discontinue that at IV prophylactically just in case. The upper extremity was dopplered for possible thrombosis and was negative. Patient also had his lower extremities dopplered and that revealed acute and chronic bilateral DVTs. Today the patient's platelet count is low at 59. Hematology is on consult. We will stop the heparin at this time due to the patient having hemoptysis which started today. Patient has post bronchoscopy. On examination the patient is lying in bed appears very tired, he is on room air. States that he does have a productive cough with hemoptysis. Objective - Vital Signs Vital signs: Vital Signs Temp 99.4 F 07/07/16 08:00 Pulse 90 07/07/16 08:00 Resp 18 07/07/16 08:00 BP 115/70 07/07/16 08:00 Pulse Ox 93 L 07/07/16 08:00 Intake & Output 07/06/16 07/07/16 07/07/16 18:59 06:59 18:59 Intake Total 2971.794 5517.617 Output Total 1800 Balance 1155.383 116.617 Weight 91.3 kg Intake: IV 750 1120 Heparin Sodium,Porcine/ 320 D5w Pmx 25,000 unit In Dextrose/Water 1 500ml. bag @ 10.8 UNITS/KG/HR 20 .18 mls/hr IV .Q24H [facility]ENDA Rx#:[id number] Sodium Chloride 0.9% 1, 600 800 000 ml @ 50 mls/hr IV . Q20H BRENDA Rx#:[id number] Intake, IV Titration 183.383 316.617 Amount Heparin Sodium,Porcine/ 183.383 316.617 D5w Pmx 25,000 unit In Dextrose/Water 1 500ml. bag @ 10.8 UNITS/KG/HR 20 .18 mls/hr IV .Q24H BRENDA Rx#:[id number] Oral 222 480 Output: Urine 1800 Other: Voiding Method Urinal Urinal Urinal # Voids 3 2 - Exam GENERAL EXAM: Alert, comfortable in no apparent distress. HEAD: Normocephalic. EYES: Normal reaction of pupils, equal size. NOSE: Clear with pink turbinates. THROAT: No erythema or exudates. NECK: No masses, no JVD. CHEST: No chest wall deformity. LUNGS: Equal air entry, coarse with no crackles, wheeze, rhonchi or dullness. Diminished CVS: S1 and S2 normal with no audible mumurs, regular rhythm. ABDOMEN: No hepatosplenomegaly, normal bowel sounds, no guarding or rigidity. EXTREMITIES: No edema noted, pedal pulses palpable. SKIN: No rashes CENTRAL NERVOUS SYSTEM: No focal deficits, tone is normal in all 4 extremities. - Labs CBC & Chem 7: 07/07/16 06:03 07/07/16 06:03 Labs: Abnormal Lab Results - Last 24 Hours (Table) 07/06/16 07/07/16 07/07/16 Range/Units 20:43 06:03 06:03 WBC 2.9 L (3.8-10.6) k/uL RBC 2.46 L (4.30-5.90) m/uL Hgb 8.1 L (13.0-17.5) gm/dL Hct 24.3 L (39.0-53.0) % Plt Count 59 L (150-450) k/uL Lymphocytes # 0.6 L (1.0-4.8) k/uL APTT 48.8 H (22.0-30.0) sec Sodium 133 L (137-145) mmol/L BUN 27 H (9-20) mg/dL Creatinine 1.87 H (0.66-1.25) mg/dL ALT 20 L (21-72) U/L Total Protein 6.1 L (6.3-8.2) g/dL Albumin 2.8 L (3.5-5.0) g/dL 07/07/16 Range/Units 08:02 WBC (3.8-10.6) k/uL RBC (4.30-5.90) m/uL Hgb (13.0-17.5) gm/dL Hct (39.0-53.0) % Plt Count (150-450) k/uL Lymphocytes # (1.0-4.8) k/uL APTT 74.1 H (22.0-30.0) sec Sodium (137-145) mmol/L BUN (9-20) mg/dL Creatinine (0.66-1.25) mg/dL ALT (21-72) U/L Total Protein (6.3-8.2) g/dL Albumin (3.5-5.0) g/dL Microbiology - Last 24 Hours (Table) 07/06/16 14:00 Gram Stain - Preliminary Bronchial Washings - Right Bronchial Washings Culture - Preliminary 07/06/16 14:00 Fungal Culture - Preliminary Bronchial Washings - Right 07/06/16 14:00 Acid Fast Bacilli Culture - Preliminary Bronchial Washings - Right Assessment and Plan Plan: Assessment Acute exacerbation of COPD Right Upper lobe pneumonia, improving Elevated d-dimer Paroxysmal atrial fibrillation History of PE and DVTs Acute renal failure stage III to 4 Hemoptysis Current acute bilateral DVTs Plan Medications have been reviewed and will be continued. Vanco added as patient previously had MRSA, per previous bronch results. Currently the patient is refusing his albuterol, Atrovent and budesonide nebulizers. Education was provided on the importance of his nebulizer treatments with his current condition and as well as cough with hemoptysis. Supplemental oxygen to keep oxygen saturations at 90% or greater. Incentive spirometer initiated and encouraged. Continue pulmonary hygiene and supportive care. Heparin has been stopped. Dr. Bailey will be consulted for possible filter placement. Patient also has Dr. Rocha on for nephrology, Dr. Mann on for elevated d-dimer, and Dr. Portillo on for his sore throat. GI and DVT prophylaxis. We will continue to monitor labs/results and adjust treatment as necessary. I performed an examination of the patient and discussed their management with the nurse practitioner. I have reviewed the nurse practitioner's note and agree with the documented findings and plan of care.
[2016-07-07] MEDS ORDERED: HEPARIN SODIUM,PORCINE 5,000 UNIT/ML 1 ML VIAL IV PRN (10:52)
[2016-07-07] MEDS ORDERED: HEPARIN SODIUM,PORCINE/D5W PMX 25,000 UNIT in DEXTROSE/WATER 1 500ML.BAG IV SCH (11:00)
[2016-07-07 11:44] LABS: Glucose,Whole Blood 103 mg/dL (75-99)
--- NOTE | 2016-07-07 13:07 | PN ---
Patient is seen for followup for acute kidney injury. He has been maintained on IV fluids. Renal function is slightly improved. The patient did have CTA done yesterday, which showed no evidence of PE. Patient had bilateral DVTs note on venous Dopplers done yesterday. Patient's daughter is complaining of increased swelling in his left upper arm as well. This is painful as well. No fever. Patient had a bronchoscopy done, which did not reveal any significant masses. There was inflammation noted. Pathology is pending. On examination, blood pressure is 106/59, heart rate 94 per minute. He is afebrile. EXAMINATION OF THE HEART: S1 and S2. EXAMINATION OF LUNGS: Decreased breath sounds in bases. ABDOMEN: Soft, nontender. Examination of the lower extremities showed trace edema bilaterally. There is significant edema and induration of the skin noted on his left upper arm. Labs show sodium 133, potassium 5.1 from today. Hemoglobin 8.1 g/dL. Creatinine 1.87. Yesterday ( ) mL per minute. Iron saturation is at 41%. ASSESSMENT: 1. Acute kidney injury, prerenal, currently improved. 2. Chronic kidney disease, NKF stage III with baseline GFR about 30 to 33 mL per minute and baseline creatinine about 1.7 mg/dL. 3. History of methicillin-resistant Staphylococcus aureus pneumonia. 4. Bilateral lower extremity deep venous thrombosis with CTA of lung negative for pulmonary embolism Patient was maintained on IV heparin. PLAN: Continue gentle IV hydration. Encourage increased oral intake. Will have Doppler on the left upper extremity as well to rule out underlying DVT.
[2016-07-07] MEDS ORDERED: IV FLUID CONTINUATION 700 ML IV ONE (15:40)
[2016-07-07] MEDS ORDERED: MIDAZOLAM 2 MG/2 ML VIAL IVP ONE (15:42)
[2016-07-07] MEDS ORDERED: LIDOCAINE 2% INJ 20 MG/ML SQ ONE (15:44)
[2016-07-07] MEDS ORDERED: IODIXANOL 320 MG/ML 100 ML IV ONE (16:06)
--- NOTE | 2016-07-07 16:19 | P.GSCN ---
History of Present Illness History of present illness: 80 white male, I was consulted for placement of the filter she denies history of bilateral N thrombosis of the both lower extremity, patient also has a history of hemoptysis his platelet count dropped to 59,000 patient will heparin which was stopped patient received wire oncology and they agreed to place a filter and graft medical history history of atrial fibrillation, history of COPD , history of TIA in the past Surgical history patient had a mass in the neck which was found to be abscess which has been drained in the past Neck examination neck is supple no bruit appreciated Chest clear auscultation first and second sound normal Abdomen soft nontender Vascular examination femorals are palpable bilateral there is no compromise of the vascular both lower extremity Impression is bilateral deep vein thromboses R lower extremity history of hemoptysis history of low platelets Plan is venacavogram and placement of the trapeze filter risk and complication discussed with the patient Past Medical History Past Medical History: Atrial Fibrillation, Coronary Artery Disease (CAD), Heart Failure, COPD, CVA/TIA, Deep Vein Thrombosis (DVT), GERD/Reflux, GI Bleed, Hyperlipidemia, Memory Impairment, Myocardial Infarction (NC), Pneumonia, Prostate Disorder, Renal Disease, Vascular Disorder Additional Past Medical History / Comment(s): Pt has had streaks of blood in sputum for the past couple months, hemoptysis with lung abscess-he had a bronchoscopy with BAL 05/19/16, bollous lung disease, AAA, UNK SIZE, LT Leg DVT, renal disease stage II, hematuria, BPH, diverticulosis. Varicosities Richard LEGS, EDEMA FEET, HX FX LT Foot, LT Elbow yrs ago, Freq Gas, 11/27/14 - ADM TO [facility] W / SEV TIA'S, SOME MEMORY CHANGES NOTED. Last Myocardial Infarction Date:: unkn History of Any Multi-Drug Resistant Organisms: MRSA Year Discovered:: 06/16/16 MDRO Source:: bronch wash Past Surgical History: Heart Catheterization, Orthopedic Surgery Additional Past Surgical History / Comment(s): 05/19/16 bronchoscopy with BAL, 2012 Colonoscopy-nl. 2008 cardiac cath-nl. RT Shoulder Bicep Tendon repair. ORIF LT elbow 2007. RT knee arthroscopy. Nasophaygeal Larynoscopy, 2013 Broncoscopy (Bronch was pos for e-coli). Past Anesthesia/Blood Transfusion Reactions: Motion Sickness Past Psychological History: No Psychological Hx Reported Additional Psychological History / Comment(s): PT IS RETIRED FROM THE [employer] AND SERVED IN THE [employer]. Smoking Status: Former smoker Past Alcohol Use History: None Reported Additional Past Alcohol Use History / Comment(s): HX Smoking cigarettes, pipe and cigars . He smoked between 1/2-1ppd for 20-30 yrs. He quit smoking in 2001 Past Drug Use History: None Reported - Past Family History Father Family Medical History: Cancer Additional Family Medical History / Comment(s): Father was an alcoholic, FROM PROSTATE CANCER at the age of 87yrs. Mother Family Medical History: Cancer Additional Family Medical History / Comment(s): UTERINE CANCER Medications and Allergies Home Medications Medication Instructions Recorded Confirmed Type Omeprazole [PriLOSEC] 20 mg PO QAM 11/27/14 07/04/16 History Acetaminophen Tab [Tylenol] 1,000 mg PO Q6HR PRN 12/23/14 07/04/16 History Ferrous Sulfate [Iron (65 MG 325 mg PO DAILY 12/23/14 07/04/16 History Elemental)] Carvedilol [Coreg] 3.125 mg PO BID 05/14/16 07/04/16 History Doxazosin [Cardura] 1 mg PO HS 05/14/16 07/04/16 History Finasteride [Proscar] 5 mg PO QAM 05/14/16 07/04/16 History Potassium Chloride [Klor-Con 10] 10 meq PO DAILY 05/14/16 07/04/16 History Aspirin 325 mg PO DAILY 07/04/16 07/04/16 History Allergies Allergy/AdvReac Type Severity Reaction Status Date / Time Sulfa (Sulfonamide Allergy Rash/Hives Verified 07/04/16 19:11 Antibiotics) Surgical - Exam Vital Signs Temp Pulse Resp BP Pulse Ox 98 F 92 20 110/67 96 07/04/16 17:58 07/04/16 17:58 07/04/16 17:58 07/04/16 17:58 07/04/16 17:58 Results - Labs 07/07/16 06:03 07/07/16 06:03 Abnormal Lab Results - Last 24 Hours (Table) 07/06/16 07/06/16 07/07/16 Range/Units 14:00 20:43 06:03 WBC 2.9 L (3.8-10.6) k/uL RBC 2.46 L (4.30-5.90) m/uL Hgb 8.1 L (13.0-17.5) gm/dL Hct 24.3 L (39.0-53.0) % Plt Count 59 L (150-450) k/uL Lymphocytes # 0.6 L (1.0-4.8) k/uL APTT 48.8 H (22.0-30.0) sec Sodium (137-145) mmol/L BUN (9-20) mg/dL Creatinine (0.66-1.25) mg/dL POC Glucose (mg/dL) (75-99) mg/dL TIBC (261-462) ug/dL Ferritin (18-464) ng/mL ALT (21-72) U/L Total Protein (6.3-8.2) g/dL Total Protein (PEP) (6.2-8.2) g/dL Albumin (3.5-5.0) g/dL Viral Test See Below H 07/07/16 07/07/16 07/07/16 Range/Units 06:03 06:03 08:02 WBC (3.8-10.6) k/uL RBC (4.30-5.90) m/uL Hgb (13.0-17.5) gm/dL Hct (39.0-53.0) % Plt Count (150-450) k/uL Lymphocytes # (1.0-4.8) k/uL APTT 74.1 H (22.0-30.0) sec Sodium 133 L (137-145) mmol/L BUN 27 H (9-20) mg/dL Creatinine 1.87 H (0.66-1.25) mg/dL POC Glucose (mg/dL) (75-99) mg/dL TIBC 229 L (261-462) ug/dL Ferritin 522 H (18-464) ng/mL ALT 20 L (21-72) U/L Total Protein 6.1 L (6.3-8.2) g/dL Total Protein (PEP) 5.6 L (6.2-8.2) g/dL Albumin 2.8 L (3.5-5.0) g/dL Viral Test 07/07/16 Range/Units 11:42 WBC (3.8-10.6) k/uL RBC (4.30-5.90) m/uL Hgb (13.0-17.5) gm/dL Hct (39.0-53.0) % Plt Count (150-450) k/uL Lymphocytes # (1.0-4.8) k/uL APTT (22.0-30.0) sec Sodium (137-145) mmol/L BUN (9-20) mg/dL Creatinine (0.66-1.25) mg/dL POC Glucose (mg/dL) 103 H (75-99) mg/dL TIBC (261-462) ug/dL Ferritin (18-464) ng/mL ALT (21-72) U/L Total Protein (6.3-8.2) g/dL Total Protein (PEP) (6.2-8.2) g/dL Albumin (3.5-5.0) g/dL Viral Test Microbiology - Last 24 Hours (Table) 07/06/16 14:00 Gram Stain - Preliminary Bronchial Washings - Right Bronchial Washings Culture - Preliminary 07/06/16 14:00 Fungal Culture - Preliminary Bronchial Washings - Right 07/06/16 14:00 Acid Fast Bacilli Culture - Preliminary Bronchial Washings - Right Diabetes panel 07/07/16 Range/Units 06:03 Sodium 133 L (137-145) mmol/L Potassium 5.1 (3.5-5.1) mmol/L Chloride 105 (98-107) mmol/L Carbon Dioxide 22 (22-30) mmol/L BUN 27 H (9-20) mg/dL Creatinine 1.87 H (0.66-1.25) mg/dL Glucose 94 (74-99) mg/dL Calcium 8.4 (8.4-10.2) mg/dL AST 41 (17-59) U/L ALT 20 L (21-72) U/L Alkaline Phosphatase 38 (38-126) U/L Total Protein 6.1 L (6.3-8.2) g/dL Albumin 2.8 L (3.5-5.0) g/dL Calcium panel 07/07/16 Range/Units 06:03 Calcium 8.4 (8.4-10.2) mg/dL Albumin 2.8 L (3.5-5.0) g/dL Pituitary panel 07/07/16 Range/Units 06:03 Sodium 133 L (137-145) mmol/L Potassium 5.1 (3.5-5.1) mmol/L Chloride 105 (98-107) mmol/L Carbon Dioxide 22 (22-30) mmol/L BUN 27 H (9-20) mg/dL Creatinine 1.87 H (0.66-1.25) mg/dL Glucose 94 (74-99) mg/dL Calcium 8.4 (8.4-10.2) mg/dL Adrenal panel 07/07/16 Range/Units 06:03 Sodium 133 L (137-145) mmol/L Potassium 5.1 (3.5-5.1) mmol/L Chloride 105 (98-107) mmol/L Carbon Dioxide 22 (22-30) mmol/L BUN 27 H (9-20) mg/dL Creatinine 1.87 H (0.66-1.25) mg/dL Glucose 94 (74-99) mg/dL Calcium 8.4 (8.4-10.2) mg/dL Total Bilirubin 1.0 (0.2-1.3) mg/dL AST 41 (17-59) U/L ALT 20 L (21-72) U/L Alkaline Phosphatase 38 (38-126) U/L Total Protein 6.1 L (6.3-8.2) g/dL Albumin 2.8 L (3.5-5.0) g/dL
--- NOTE | 2016-07-07 16:32 | P.PCN ---
Description of Procedure: Reoperative diagnoses is deep and thrombosis of both lower extremity, history of hemoptysis, history of low platelets count, #1 is venacavogram, placement o trapese filter and completion venogram Patient was brought to the Assistant Auditor right and left groin was prepped and draped applied in standard manner 1% lidocaine was infiltrated in the right groin ultrasound-guided needle was introduced to the right common femoral vein and guidewire was passed and 5-Lao sheath advanced. The guidewire inferior venacavogram was performed to the right sheath was advanced on the top of the guidewire guidewire was removed TrapEase filter was placed below the renal vein completion venogram showed in good position catheter was removed pressure held patient prior the procedure well
[2016-07-07 17:02] LABS: Glucose,Whole Blood 94 mg/dL (75-99)
--- NOTE | 2016-07-07 17:27 | IR ---
Fluoroscopy HISTORY: Pain 2.3 minutes fluoroscopy time supplied to the referring clinician. 762 intraoperative C-arm images do cument the procedure. See dictated report from vascular surgery.
[2016-07-07] MEDS: DOXAZOSIN 1 MG TAB PO SCH (21:56)
[2016-07-08] MEDS: SODIUM CHLORIDE 0.9% 1,000 ML IV SCH ×3 (06:31→22:19)
[2016-07-08 06:46] LABS: Calcium 8.3 mg/dL (8.4-10.2); Total Bilirubin 0.6 mg/dL (0.2-1.3); Total Protein 5.2 g/dL (6.3-8.2)
[2016-07-08 06:52] LABS: Basophils % (A) 1 %; CHCM 34.6; Eosinophils # (A) 0.1 k/uL (0-0.7); Eosinophils % (A) 4 %; HCT 20.4 % (39.0-53.0); HDW 2.84; HGB 7.1 gm/dL (13.0-17.5); Luc # (Auto) 0.07; Luc % (Auto) 4; Lymphocytes # (A) 0.6 k/uL (1.0-4.8); Lymphocytes % (A) 30 %; MCH 33.4 pg (25.0-35.0); MCHC 34.9 g/dL (31.0-37.0); MCV 95.7 fL (80.0-100.0); Mean Platelet Volume 6.9; Monocytes # (A) 0.2 k/uL (0-1.0); Monocytes % (A) 11 %; Neutrophils # (A) 1.1 k/uL (1.3-7.7); Neutrophils % (A) 52 %; RBC 2.14 m/uL (4.30-5.90); RDW 14.1 % (11.5-15.5); WBC 2.1 k/uL (3.8-10.6); WBC (Perox) 1.93
[2016-07-08] MEDS: CARVEDILOL 3.125 MG TAB PO SCH ×2 (06:57→17:15)
[2016-07-08] MEDS: PANTOPRAZOLE 40 MG TABLET PO SCH (06:57)
[2016-07-08] MEDS: FAMOTIDINE 20 MG TAB PO SCH (08:00)
[2016-07-08] MEDS: SUCRALFATE 1 GM TAB PO SCH ×4 (08:00→22:19)
[2016-07-08] MEDS: FERROUS SULFATE 325 MG TAB PO SCH (08:00)
[2016-07-08] MEDS: VANCOMYCIN 1,500 MG in SODIUM CHLORIDE 0.9% 250 ML IVPB SCH (08:01)
[2016-07-08] MEDS: FINASTERIDE 5 MG TAB PO SCH (08:01)
[2016-07-08] MEDS: BUDESONIDE 1 MG/2 ML NEBU INHALATION SCH ×2 (08:54→21:19)
[2016-07-08] MEDS: IPRATROPIUM-ALBUTEROL 3 ML NEB INHALATION SCH ×4 (08:54→21:19)
--- NOTE | 2016-07-08 09:38 | P.PN ---
Subjective Patient is seen in follow-up for acute kidney injury on chronic kidney disease. Patient has chronic kidney disease stage III with baseline creatinine near 1.7. Renal function is a little worse today with creatinine at 1.99. He's hemoglobin is down to 7.1 today. He received an IVC filter yesterday. He is noted to have bilateral lower extremity DVTs and heparin drip has been discontinued. He is maintained on normal saline at 50 mL an hour. Admits to good urine output. Appetite is good. No vomiting or diarrhea. Denies chest pain or shortness of breath. Vital signs are stable. General: The patient appeared well nourished and normally developed. HEENT: Head exam is unremarkable. Neck is without jugular venous distension. LUNGS: Lungs are clear to auscultation and percussion. Breath sounds decreased. HEART: Rate and Rhythm are regular. First and second heart sounds normal. No murmurs, rubs or gallops. ABDOMEN: Abdominal exam reveals normal bowel sounds. Non-tender and non- distended. No evidence of peritonitis. EXTREMITITES: No clubbing, cyanosis, or edema. Objective - Vital Signs Vital signs: Vital Signs Temp 97.6 F 07/08/16 08:00 Pulse 83 07/08/16 08:00 Resp 18 07/08/16 08:00 BP 110/58 07/08/16 08:00 Pulse Ox 95 07/08/16 08:00 Intake & Output 07/07/16 07/08/16 07/08/16 18:59 06:59 18:59 Intake Total 410 718 Output Total 575 Balance 410 143 Weight 90.6 kg Intake: IV 50 600 Sodium Chloride 0.9% 1, 600 000 ml @ 50 mls/hr IV . Q20H [facility] Rx#:[id number] Oral 360 118 Output: Urine 575 Other: Voiding Method Urinal Urinal Urinal - Labs CBC & Chem 7: 07/08/16 06:05 07/08/16 06:05 Labs: Abnormal Lab Results - Last 24 Hours (Table) 07/06/16 07/07/16 07/07/16 Range/Units 14:00 06:03 06:03 WBC (3.8-10.6) k/uL RBC (4.30-5.90) m/uL Hgb (13.0-17.5) gm/dL Hct (39.0-53.0) % Plt Count (150-450) k/uL Neutrophils # (1.3-7.7) k/uL Lymphocytes # (1.0-4.8) k/uL Sodium 133 L (137-145) mmol/L Chloride (98-107) mmol/L BUN 27 H (9-20) mg/dL Creatinine 1.87 H (0.66-1.25) mg/dL POC Glucose (mg/dL) (75-99) mg/dL Calcium (8.4-10.2) mg/dL TIBC 229 L (261-462) ug/dL Ferritin 522 H (18-464) ng/mL ALT 20 L (21-72) U/L Total Protein 6.1 L (6.3-8.2) g/dL Total Protein (PEP) 5.6 L (6.2-8.2) g/dL Albumin 2.8 L (3.5-5.0) g/dL RBC Folate (280 - 791) ng/mL Viral Test See Below H 07/07/16 07/07/16 07/08/16 Range/Units 06:03 11:42 06:05 WBC 2.1 L (3.8-10.6) k/uL RBC 2.14 L (4.30-5.90) m/uL Hgb 7.1 L (13.0-17.5) gm/dL Hct 20.4 L (39.0-53.0) % Plt Count 61 L (150-450) k/uL Neutrophils # 1.1 L (1.3-7.7) k/uL Lymphocytes # 0.6 L (1.0-4.8) k/uL Sodium (137-145) mmol/L Chloride (98-107) mmol/L BUN (9-20) mg/dL Creatinine (0.66-1.25) mg/dL POC Glucose (mg/dL) 103 H (75-99) mg/dL Calcium (8.4-10.2) mg/dL TIBC (261-462) ug/dL Ferritin (18-464) ng/mL ALT (21-72) U/L Total Protein (6.3-8.2) g/dL Total Protein (PEP) (6.2-8.2) g/dL Albumin (3.5-5.0) g/dL RBC Folate 858 H (280 - 791) ng/mL Viral Test 07/08/16 Range/Units 06:05 WBC (3.8-10.6) k/uL RBC (4.30-5.90) m/uL Hgb (13.0-17.5) gm/dL Hct (39.0-53.0) % Plt Count (150-450) k/uL Neutrophils # (1.3-7.7) k/uL Lymphocytes # (1.0-4.8) k/uL Sodium (137-145) mmol/L Chloride 108 H (98-107) mmol/L BUN 21 H (9-20) mg/dL Creatinine 1.99 H (0.66-1.25) mg/dL POC Glucose (mg/dL) (75-99) mg/dL Calcium 8.3 L (8.4-10.2) mg/dL TIBC (261-462) ug/dL Ferritin (18-464) ng/mL ALT (21-72) U/L Total Protein 5.2 L (6.3-8.2) g/dL Total Protein (PEP) (6.2-8.2) g/dL Albumin 2.4 L (3.5-5.0) g/dL RBC Folate (280 - 791) ng/mL Viral Test Microbiology - Last 24 Hours (Table) 07/06/16 14:00 Acid Fast Bacilli Smear - Final Bronchial Washings - Right Acid Fast Bacilli Culture - Preliminary Assessment and Plan Plan: Assessment: #1. Nonoliguric acute kidney injury secondary to ischemic ATN due to anemia and contrast-induced nephropathy - CTA done on July 06. Creatinine elevated at 1.99 today. #2. Anemia. Hemoglobin of 7.1 today. Heparin drip has been discontinued. Iron replete. #3. Bilateral lower extremity DVTs status post IVC filter placement on July 07. #4. Chronic kidney disease stage III with baseline creatinine near 1.7. Plan: Continue normal saline to be run at 50 mL an hour. Patient to receive 1 unit of blood transfusion today. Avoid nephrotoxic agents and hypotensive episodes. Repeat electrolytes in the morning.
--- NOTE | 2016-07-08 10:31 | XR ---
Left humerus HISTORY: Pain 2 views of the left humerus on 3 images There is soft tissue swelling present. Arthropathy noted in the elbow. Distal acromion appears downtu rned. Bone mineralization is maintained. No fracture or dislocation, no periostitis or radiopaque for eign body. IMPRESSION: Correlate for cellulitis. Follow-up as indicated.
--- NOTE | 2016-07-08 10:50 | P.PN ---
Subjective This is an 80-year-old male being evaluated and examined today on the sixth floor. This patient is well-known to our services. This patient was recently discharged from the hospital for hemoptysis and MRSA pneumonia. She was seen by cardiothoracic surgeons and infectious disease last hospitalization. He was discharged with Linezolid antibiotics. Patient states that he has not had hemoptysis since discharge however he does feel dizziness, lightheadedness, decreased appetite and tired at all times. He denies any recent fever, chills, shortness of breath, chest pain, abdominal pain, nausea, vomiting, diarrhea, or hemoptysis. He was admitted with shortness of breath, elevated d-dimer, acute kidney injury and hematuria. Patient did have an x-ray that does show some improvement from previous. Also shows a possible nodule in the right upper lung. D-Dimer was 15.92. Patient did have a VQ scan on 07/05/2016 which revealed multiple matched deficits suggesting low probability, if there is a persistent high clinical correlation consider CTA. He was also noted to have A. fib, patient was started on low-intensity heparin without a bolus. The patient was noted to have a left upper extremity swelling and pain above the IV site. The IV was flushed and seemed patent however they just decided to discontinue that at IV prophylactically just in case. The upper extremity was dopplered for possible thrombosis and was negative. X-ray was completed and is consistent with cellulitis. Patient also had his lower extremities dopplered and that revealed acute and chronic bilateral DVTs. Patient has post bronchoscopy. The patient's platelet count is low at 61. Hematology is on consult. We did stop the heparin 07/07/16. Patient continues to have hemoptysis. Hemoglobin noted to be 7.1 now therefore the patient will receive 1 unit of packed red blood cells. The patient did receive an IVC filter on 11/2016. On examination the patient is lying in bed appears very tired, he is on room air. States that he does have a productive cough with hemoptysis. Patient states that he is not short of breath however on examination he does appear short of breath. Objective - Vital Signs Vital signs: Vital Signs Temp 97.6 F 07/08/16 08:00 Pulse 83 07/08/16 08:00 Resp 18 07/08/16 08:00 BP 110/58 07/08/16 08:00 Pulse Ox 95 07/08/16 08:00 Intake & Output 07/07/16 07/08/16 07/08/16 18:59 06:59 18:59 Intake Total 410 718 240 Output Total 575 Balance 410 143 240 Weight 90.6 kg Intake: IV 50 600 Sodium Chloride 0.9% 1, 600 000 ml @ 50 mls/hr IV . Q20H [facility] Rx#:[id number] Oral 360 118 240 Output: Urine 575 Other: Voiding Method Urinal Urinal Urinal - Exam GENERAL EXAM: Alert, comfortable in no apparent distress. HEAD: Normocephalic. EYES: Normal reaction of pupils, equal size. NOSE: Clear with pink turbinates. THROAT: No erythema or exudates. NECK: No masses, no JVD. CHEST: No chest wall deformity. LUNGS: Equal air entry, coarse with no crackles, wheeze, rhonchi or dullness. Diminished CVS: S1 and S2 normal with no audible mumurs, regular rhythm. ABDOMEN: No hepatosplenomegaly, normal bowel sounds, no guarding or rigidity. EXTREMITIES: No edema noted, pedal pulses palpable. SKIN: No rashes CENTRAL NERVOUS SYSTEM: No focal deficits, tone is normal in all 4 extremities. - Labs CBC & Chem 7: 07/08/16 06:05 07/08/16 06:05 Labs: Abnormal Lab Results - Last 24 Hours (Table) 07/06/16 07/07/16 07/07/16 Range/Units 14:00 06:03 06:03 WBC (3.8-10.6) k/uL RBC (4.30-5.90) m/uL Hgb (13.0-17.5) gm/dL Hct (39.0-53.0) % Plt Count (150-450) k/uL Neutrophils # (1.3-7.7) k/uL Lymphocytes # (1.0-4.8) k/uL Sodium 133 L (137-145) mmol/L Chloride (98-107) mmol/L BUN 27 H (9-20) mg/dL Creatinine 1.87 H (0.66-1.25) mg/dL POC Glucose (mg/dL) (75-99) mg/dL Calcium (8.4-10.2) mg/dL TIBC 229 L (261-462) ug/dL Ferritin 522 H (18-464) ng/mL ALT 20 L (21-72) U/L Total Protein 6.1 L (6.3-8.2) g/dL Total Protein (PEP) 5.6 L (6.2-8.2) g/dL Albumin 2.8 L (3.5-5.0) g/dL RBC Folate (280 - 791) ng/mL Viral Test See Below H 07/07/16 07/07/16 07/08/16 Range/Units 06:03 11:42 06:05 WBC 2.1 L (3.8-10.6) k/uL RBC 2.14 L (4.30-5.90) m/uL Hgb 7.1 L (13.0-17.5) gm/dL Hct 20.4 L (39.0-53.0) % Plt Count 61 L (150-450) k/uL Neutrophils # 1.1 L (1.3-7.7) k/uL Lymphocytes # 0.6 L (1.0-4.8) k/uL Sodium (137-145) mmol/L Chloride (98-107) mmol/L BUN (9-20) mg/dL Creatinine (0.66-1.25) mg/dL POC Glucose (mg/dL) 103 H (75-99) mg/dL Calcium (8.4-10.2) mg/dL TIBC (261-462) ug/dL Ferritin (18-464) ng/mL ALT (21-72) U/L Total Protein (6.3-8.2) g/dL Total Protein (PEP) (6.2-8.2) g/dL Albumin (3.5-5.0) g/dL RBC Folate 858 H (280 - 791) ng/mL Viral Test 07/08/16 Range/Units 06:05 WBC (3.8-10.6) k/uL RBC (4.30-5.90) m/uL Hgb (13.0-17.5) gm/dL Hct (39.0-53.0) % Plt Count (150-450) k/uL Neutrophils # (1.3-7.7) k/uL Lymphocytes # (1.0-4.8) k/uL Sodium (137-145) mmol/L Chloride 108 H (98-107) mmol/L BUN 21 H (9-20) mg/dL Creatinine 1.99 H (0.66-1.25) mg/dL POC Glucose (mg/dL) (75-99) mg/dL Calcium 8.3 L (8.4-10.2) mg/dL TIBC (261-462) ug/dL Ferritin (18-464) ng/mL ALT (21-72) U/L Total Protein 5.2 L (6.3-8.2) g/dL Total Protein (PEP) (6.2-8.2) g/dL Albumin 2.4 L (3.5-5.0) g/dL RBC Folate (280 - 791) ng/mL Viral Test Microbiology - Last 24 Hours (Table) 07/06/16 14:00 Gram Stain - Final Bronchial Washings - Right Bronchial Washings Culture - Final 07/06/16 14:00 Acid Fast Bacilli Smear - Final Bronchial Washings - Right Acid Fast Bacilli Culture - Preliminary Assessment and Plan Plan: Assessment Acute exacerbation of COPD Right Upper lobe pneumonia, improving Elevated d-dimer Paroxysmal atrial fibrillation History of PE and DVTs Acute renal failure stage III to 4 Hemoptysis Current acute bilateral DVTs Anemia, acute blood loss likely due to low platelets, anticoagulation and recent procedures as well as hemoptysis. Plan Medications have been reviewed and will be continued. Letitiao as patient previously had MRSA, per previous bronch results. Currently the patient is refusing his albuterol, Atrovent and budesonide nebulizers. Education was provided on the importance of his nebulizer treatments with his current condition and as well as cough with hemoptysis. Supplemental oxygen to keep oxygen saturations at 90% or greater. Incentive spirometer initiated and encouraged. Continue pulmonary hygiene and supportive care. Patient is post IVC filter insertion. Patient also has Dr. Rocha on for nephrology, Dr. Mann on for elevated d-dimer, and Dr. Portillo on for his sore throat. GI and DVT prophylaxis. Repeat labs in the morning. We will continue to monitor labs/ results and adjust treatment as necessary. I performed an examination of the patient and discussed their management with the nurse practitioner. I have reviewed the nurse practitioner's note and agree with the documented findings and plan of care.
[2016-07-08 11:14] LABS: Free Kappa Lt Chain Qnt, Serum 5.97 mg/dL (0.33 - 1.94)
--- NOTE | 2016-07-08 14:58 | PN ---
CHIEF COMPLAINT: Shortness of breath and hemoptysis. HISTORY OF PRESENT ILLNESS: This gentleman continues to be short of breath. He is on heparin and is coughing up blood. A Judi filter is to be placed. Hemoglobin has dropped and his platelets are 70,000. Also has quite a swelling and discomfort in the left arm, probably from and infiltrated IV in the left biceps area. REVIEW OF SYSTEMS: He is complaining mostly of the pain in the left arm. PHYSICAL EXAM: Vital signs are normal. He is pale. Chest demonstrates good breath sounds bilaterally. The cardiac exam demonstrates his atrial fibrillation. The abdomen is soft and nontender. IMPRESSION: 1. Shortness of breath. 2. Recent right upper lobe pneumonitis. 3. Hemoptysis. 4. Defibrillation. 5. Subcutaneous hemorrhage and hematoma of the left arm. 6. Thrombocytopenia. PLAN: 1. Judi filter today. 2. Continue to consider the benefits versus the risks of anticoagulating this gentleman.
--- NOTE | 2016-07-08 15:10 | PN ---
DATE OF SERVICE: 07/08/2016 CHIEF COMPLAINT: Shortness of breath, cough, hemoptysis, anemia. HISTORY OF PRESENT ILLNESS: This gentleman seems about the same. He seemed a little bit more alert. He is not coughing up blood any longer. Filter was placed. He is still having quite a bit of discomfort in the left arm where he had subcutaneous bleed. PHYSICAL EXAM: He remains pale. Neck veins are slightly distended. Left arm is swollen and somewhat ecchymotic from the shoulder distally. Chest demonstrates occasional rales and rhonchi. Cardiac exam demonstrates the arrhythmia. The abdomen is soft and nontender. IMPRESSION: 1. Shortness of breath. 2. Chronic obstructive pulmonary disease. 3. Question congestive heart failure. 4. Anemia. 5. Thrombocytopenia. 6. Hemorrhaging in the left arm demonstrated atrial fibrillation. PLAN: Increase activity and wait for further guidance regarding anticoagulation.
[2016-07-08] MEDS: DOXAZOSIN 1 MG TAB PO SCH (20:02)
--- NOTE | 2016-07-08 20:38 | P.PN ---
Subjective The pt reports no hemoptysis overnight. No other bleeding noted. No f/c/ increased SOB Objective - Vital Signs Vital signs: Vital Signs Temp 97.7 F 07/08/16 16:28 Pulse 88 07/08/16 16:28 Resp 16 07/08/16 16:28 BP 122/63 07/08/16 16:28 Pulse Ox 95 07/08/16 16:28 Intake & Output 07/08/16 07/08/16 07/09/16 06:59 18:59 06:59 Intake Total 718 790 Output Total 575 400 Balance 143 390 Weight 90.6 kg Intake: IV 600 Sodium Chloride 0.9% 1, 600 000 ml @ 50 mls/hr IV . Q20H [facility] Rx#:[id number] Oral 118 480 Blood Product 310 Rc Pheresis As-3 Unit 310 [id number] Output: Urine 575 400 Other: Voiding Method Urinal Urinal # Voids 1 - Constitutional General appearance: Present: no acute distress - EENT Eyes: Present: PERRLA ENT: Present: hearing grossly normal, normal oropharynx - Respiratory Respiratory: right: diminished - Cardiovascular Rhythm: irregularly irregular Heart sounds: normal: S1, S2 - Gastrointestinal General gastrointestinal: Present: normal bowel sounds, soft - Integumentary Integumentary Comment(s): bruising LUE around elbow - Neurologic Neurologic: Present: CNII-XII intact - Musculoskeletal Musculoskeletal: Present: generalized weakness, strength equal bilaterally - Psychiatric Psychiatric: Present: A&O x's 3 - Labs CBC & Chem 7: 07/08/16 06:05 07/08/16 06:05 Labs: Abnormal Lab Results - Last 24 Hours (Table) 07/07/16 07/08/16 07/08/16 Range/Units 06:03 06:05 06:05 WBC 2.1 L (3.8-10.6) k/uL RBC 2.14 L (4.30-5.90) m/uL Hgb 7.1 L (13.0-17.5) gm/dL Hct 20.4 L (39.0-53.0) % Plt Count 61 L (150-450) k/uL Neutrophils # 1.1 L (1.3-7.7) k/uL Lymphocytes # 0.6 L (1.0-4.8) k/uL Chloride 108 H (98-107) mmol/L BUN 21 H (9-20) mg/dL Creatinine 1.99 H (0.66-1.25) mg/dL Calcium 8.3 L (8.4-10.2) mg/dL Total Protein 5.2 L (6.3-8.2) g/dL Albumin 2.4 L (3.5-5.0) g/dL RBC Folate 858 H (280 - 791) ng/mL Free [place] LC, Quant 5.97 H (0.33 - 1.94) mg/dL Free [place] LC, Quant 2.71 H (0.57 - 2.63) mg/dL Free [place]/Lambda Ratio 2.20 H (0.26 - 1.65) Crossmatch 07/08/16 Range/Units 09:40 WBC (3.8-10.6) k/uL RBC (4.30-5.90) m/uL Hgb (13.0-17.5) gm/dL Hct (39.0-53.0) % Plt Count (150-450) k/uL Neutrophils # (1.3-7.7) k/uL Lymphocytes # (1.0-4.8) k/uL Chloride (98-107) mmol/L BUN (9-20) mg/dL Creatinine (0.66-1.25) mg/dL Calcium (8.4-10.2) mg/dL Total Protein (6.3-8.2) g/dL Albumin (3.5-5.0) g/dL RBC Folate (280 - 791) ng/mL Free [place] LC, Quant (0.33 - 1.94) mg/dL Free Lambda LC, Quant (0.57 - 2.63) mg/dL Free [place]/Lambda Ratio (0.26 - 1.65) Crossmatch See Detail Microbiology - Last 24 Hours (Table) 07/06/16 14:00 Gram Stain - Final Bronchial Washings - Right Bronchial Washings Culture - Final 07/06/16 14:00 Acid Fast Bacilli Smear - Final Bronchial Washings - Right Acid Fast Bacilli Culture - Preliminary Assessment and Plan (1) Pneumonia Status: Acute (2) Deep vein thrombosis (DVT) of both lower extremities Narrative/Plan: The pt has b/l acute proximal DVTs. Therefore ideally anticoagulation is necessary. However the pt was having significant hemoptysis, with drop in Hgb. Thus case was d/w the admitting service, and based on risk benefit, IV heparin was stopped. - The pt has high risk of progression and PE without anticoagulation. Thus case was d/w Vascular surgery, and IVC filter recommended. This was subsequently placed. - We would plan to resume anticoagulation down the line, if hemoptysis does not recur Status: Acute (3) Pancytopenia Narrative/Plan: WBC and plt are overall stable, in a safe range. Hgb has dropped to 7.1, due to hemoptysis. Cytopenia labs are negative so far re deficiency states. PEP studies are pending. TIKI was positive only at low titre ,which is non specific - Continue to monitor and transfuse if Hgb is < 7. At this time cytopenias are likely related to marrow suppression from inflammation and antibiotic use. Improvement would be expected, as pt's acute condition resolves. Recommend f/u outpt in a few weeks, at which time he can also be assessed re resuming anticoagulation. Case d/w admitting service Status: Acute Plan: It was discussed with the pt and his family that holding of anticoagulation could put him at risk of thrombosis related to his a fib. However, risk of bleeding is higher at this time. Thus based on risk benefit, anticoagulation has been held. He is on ASA
[2016-07-09 06:46] LABS: Basophils % (A) 1 %; CH 32.8; CHCM 34.9; Eosinophils # (A) 0.1 k/uL (0-0.7); Eosinophils % (A) 5 %; HCT 21.3 % (39.0-53.0); HDW 2.91; HGB 7.5 gm/dL (13.0-17.5); Luc # (Auto) 0.08; Luc % (Auto) 3; Lymphocytes # (A) 0.9 k/uL (1.0-4.8); Lymphocytes % (A) 32 %; MCH 33.1 pg (25.0-35.0); MCHC 35.1 g/dL (31.0-37.0); MCV 94.2 fL (80.0-100.0); Mean Platelet Volume 7.4; Monocytes # (A) 0.3 k/uL (0-1.0); Monocytes % (A) 9 %; Neutrophils # (A) 1.4 k/uL (1.3-7.7); Neutrophils % (A) 51 %; RBC 2.26 m/uL (4.30-5.90); RDW 14.7 % (11.5-15.5); WBC 2.7 k/uL (3.8-10.6); WBC (Perox) 2.62
[2016-07-09] MEDS: CARVEDILOL 3.125 MG TAB PO SCH ×2 (06:46→16:35)
[2016-07-09] MEDS: PANTOPRAZOLE 40 MG TABLET PO SCH (06:46)
[2016-07-09] MEDS: SODIUM CHLORIDE 0.9% 1,000 ML IV SCH ×2 (06:47→20:22)
[2016-07-09 06:58] LABS: Calcium 8.5 mg/dL (8.4-10.2); Total Bilirubin 0.7 mg/dL (0.2-1.3); Total Protein 5.4 g/dL (6.3-8.2)
[2016-07-09] MEDS ORDERED: VANCOMYCIN TROUGH DUE 1 EACH MISC MISCELLANE ONE (08:00)
[2016-07-09] MEDS: FERROUS SULFATE 325 MG TAB PO SCH (08:33)
[2016-07-09] MEDS: SUCRALFATE 1 GM TAB PO SCH ×4 (08:33→20:21)
[2016-07-09] MEDS: FINASTERIDE 5 MG TAB PO SCH (08:34)
[2016-07-09] MEDS: FAMOTIDINE 20 MG TAB PO SCH (08:34)
[2016-07-09] MEDS: VANCOMYCIN 1,500 MG in SODIUM CHLORIDE 0.9% 250 ML IVPB SCH (08:34)
[2016-07-09 08:38] LABS: Mis test requested (Non-blood) Pneumocytis DFA
[2016-07-09] MEDS: IPRATROPIUM-ALBUTEROL 3 ML NEB INHALATION SCH ×4 (09:43→19:36)
[2016-07-09] MEDS: BUDESONIDE 1 MG/2 ML NEBU INHALATION SCH ×2 (09:43→19:37)
[2016-07-09 10:58] VITALS: BMI 24.2
--- NOTE | 2016-07-09 11:50 | P.PN ---
Subjective This is an 80-year-old male being evaluated and examined today on the sixth floor. This patient is well-known to our services. This patient was recently discharged from the hospital for hemoptysis and MRSA pneumonia. She was seen by cardiothoracic surgeons and infectious disease last hospitalization. He was discharged with Linezolid antibiotics. Patient states that he has not had hemoptysis since discharge however he does feel dizziness, lightheadedness, decreased appetite and tired at all times. He denies any recent fever, chills, shortness of breath, chest pain, abdominal pain, nausea, vomiting, diarrhea, or hemoptysis. He was admitted with shortness of breath, elevated d-dimer, acute kidney injury and hematuria. Patient did have an x-ray that does show some improvement from previous. Also shows a possible nodule in the right upper lung. D-Dimer was 15.92. Patient did have a VQ scan on 07/05/2016 which revealed multiple matched deficits suggesting low probability, if there is a persistent high clinical correlation consider CTA. He was also noted to have A. fib, patient was started on low-intensity heparin without a bolus. The patient was noted to have a left upper extremity swelling and pain above the IV site. The IV was flushed and seemed patent however they just decided to discontinue that at IV prophylactically just in case. The upper extremity was dopplered for possible thrombosis and was negative. X-ray was completed and is consistent with cellulitis. Patient also had his lower extremities dopplered and that revealed acute and chronic bilateral DVTs. Patient has post bronchoscopy. Hematology is on consult. We did stop the heparin 07/07/16. The patient did receive an IVC filter on 07/07/2016. Patient did receive 1 unit of packed red blood cells on 07/08/2016 for hemoglobin of 7.1. Today the patient's hemoglobin is 7.5 and his platelet count has improved to 61. On examination the patient is lying in bed appears very tired, he is on room air. Patient continues to have a productive cough however it is now clear and the hemoptysis has resolved. Patient continues to state that he is not short of breath however on examination he does appear short of breath. His pulse ox saturations have been within normal limits on room air. Objective - Vital Signs Vital signs: Vital Signs Temp 97.9 F 07/09/16 08:34 Pulse 98 07/09/16 08:34 Resp 18 07/09/16 08:34 BP 165/70 07/09/16 08:34 Pulse Ox 95 07/09/16 08:34 Intake & Output 07/08/16 07/09/16 07/09/16 18:59 06:59 18:59 Intake Total 790 400 180 Output Total 400 900 Balance 390 -500 180 Weight 95 kg 95 kg Intake: IV 400 Sodium Chloride 0.9% 1, 400 000 ml @ 50 mls/hr IV . Q20H [facility] Rx#:[id number] Oral 480 180 Blood Product 310 Rc Pheresis As-3 Unit 310 [id number] Output: Urine 400 900 Other: Voiding Method Urinal Urinal Urinal # Voids 1 1 - Exam GENERAL EXAM: Alert, tired, comfortable in no apparent distress. HEAD: Normocephalic. EYES: Normal reaction of pupils, equal size. NOSE: Clear with pink turbinates. THROAT: No erythema or exudates. NECK: No masses, no JVD. CHEST: No chest wall deformity. LUNGS: Equal air entry, coarse with no crackles, wheeze, rhonchi or dullness. Diminished CVS: S1 and S2 normal with no audible mumurs, regular rhythm. ABDOMEN: No hepatosplenomegaly, normal bowel sounds, no guarding or rigidity. EXTREMITIES: No edema noted, pedal pulses palpable. SKIN: No rashes CENTRAL NERVOUS SYSTEM: No focal deficits, tone is normal in all 4 extremities. - Labs CBC & Chem 7: 07/09/16 06:21 07/09/16 06:21 Labs: Abnormal Lab Results - Last 24 Hours (Table) 07/07/16 07/08/16 07/09/16 Range/Units 06:03 09:40 06:21 WBC 2.7 L (3.8-10.6) k/uL RBC 2.26 L (4.30-5.90) m/uL Hgb 7.5 L (13.0-17.5) gm/dL Hct 21.3 L (39.0-53.0) % Plt Count 71 L (150-450) k/uL Lymphocytes # 0.9 L (1.0-4.8) k/uL Chloride (98-107) mmol/L BUN (9-20) mg/dL Creatinine (0.66-1.25) mg/dL Total Protein (6.3-8.2) g/dL Albumin (3.5-5.0) g/dL RBC Folate 858 H (280 - 791) ng/mL Free [place] LC, Quant 5.97 H (0.33 - 1.94) mg/dL Free Lambda LC, Quant 2.71 H (0.57 - 2.63) mg/dL Free [place]/Lambda Ratio 2.20 H (0.26 - 1.65) Crossmatch See Detail 07/09/16 Range/Units 06:21 WBC (3.8-10.6) k/uL RBC (4.30-5.90) m/uL Hgb (13.0-17.5) gm/dL Hct (39.0-53.0) % Plt Count (150-450) k/uL Lymphocytes # (1.0-4.8) k/uL Chloride 108 H (98-107) mmol/L BUN 21 H (9-20) mg/dL Creatinine 2.06 H (0.66-1.25) mg/dL Total Protein 5.4 L (6.3-8.2) g/dL Albumin 2.5 L (3.5-5.0) g/dL RBC Folate (280 - 791) ng/mL Free [place] LC, Quant (0.33 - 1.94) mg/dL Free Lambda LC, Quant (0.57 - 2.63) mg/dL Free [place]/Lambda Ratio (0.26 - 1.65) Crossmatch Microbiology - Last 24 Hours (Table) 07/06/16 14:00 Gram Stain - Final Bronchial Washings - Right Bronchial Washings Culture - Final Assessment and Plan Plan: Assessment Acute exacerbation of COPD Right Upper lobe pneumonia, improving Elevated d-dimer Paroxysmal atrial fibrillation History of PE and DVTs Acute renal failure stage III to 4 Hemoptysis Current acute bilateral DVTs Anemia, acute blood loss likely due to low platelets, anticoagulation and recent procedures as well as hemoptysis. Plan Medications have been reviewed and will be continued. Continue antibiotics. Currently the patient is refusing his albuterol, Atrovent and budesonide nebulizers. Education was provided on the importance of his nebulizer treatments with his current condition and as well as cough with hemoptysis. Supplemental oxygen to keep oxygen saturations at 90% or greater. Incentive spirometer initiated and encouraged. Continue pulmonary hygiene and supportive care. Patient is post IVC filter insertion. Nursing staff has updated hematology on hemoglobin. We will leave the decision to transfuse up to hematology. Patient also has Dr. Rocha on for nephrology, Dr. Mann on for elevated d-dimer, and Dr. Portillo on for his sore throat. GI and DVT prophylaxis. Repeat labs in the morning. We will continue to monitor labs/ results and adjust treatment as necessary. I performed an examination of the patient and discussed their management with the nurse practitioner. I have reviewed the nurse practitioner's note and agree with the documented findings and plan of care.
--- NOTE | 2016-07-09 15:21 | CT ---
EXAMINATION TYPE: CT humerus LT wo con DATE OF EXAM: 07/09/2016 3:11 PM COMPARISON: NONE HISTORY: Left arm swelling and bruising CT DLP: 627 mGycm Automated exposure control for dose reduction was used. FINDINGS: There is some apical scarring on the left. There is some fibrosis in the left lower lobe. No definite parenchymal mass is seen. No acute osseous lesion is seen. There is degenerative change in the radiocapitellar joint. There is decentering of the humerus within the glenohumeral joint. This is suggestive of rotator cuff disease. IMPRESSION: 1. NO ACUTE OSSEOUS LESION. 2. DEGENERATIVE CHANGE IN THE ELBOW JOINT. 3. DECENTERING OF THE HUMERUS WITHIN THE GLENOHUMERAL JOINT IS AN INDIRECT SIGN OF ROTATOR CUFF DISEA SE.
--- NOTE | 2016-07-09 15:22 | PN ---
CHIEF COMPLAINT: Lethargy, shortness of breath and anemia. HISTORY OF PRESENT ILLNESS: This gentleman is doing a little bit better. He is a little bit more alert. His hemoglobin is still just above 7. Platelets are also slightly low; still around 70,000. There is no clear-cut reason for this. He has had no fever, chills, signs of sepsis, bleeding, etc. PHYSICAL EXAMINATION: He remains pale. HEENT: Normal. The chest is clear. Cardiac exam demonstrates atrial fibrillation. ABDOMEN: Soft, nontender. IMPRESSION: 1. Weakness, shortness of breath, failure to thrive; etiology unknown. 2. Anemia and thrombocytopenia; etiology unknown. 3. Recent right upper lobe pneumonitis with hemoptysis. 4. Chronic obstructive pulmonary disease. PLAN: Continue to evaluate for dropping hemoglobin and platelet count.
--- NOTE | 2016-07-09 18:46 | PN ---
Patient is seen for follow-up for acute kidney injury on top of chronic kidney disease. His renal function is currently at baseline. He was found to have bilateral lower extremity DVT, CTA was done, which did not reveal any evidence of PE. Patient has had hemoptysis, bronchoscopy also did not reveal any specific findings. He is being treated for right upper lobe pneumonia. He has had swelling of his left upper extremity which has been negative and he has had Dopplers done, which were negative for DVT. The humerus CT was also performed, which did not reveal any significant acute abnormalities except some suggestion of rotator cuff disease. On examination, blood pressure is 117/69, heart rate 88 per minute. He is afebrile. Examination of the heart S1 and S2. Examination of the lungs reveal decreased breath sounds in bases. ABDOMEN: Soft, nontender. Examination of the lower extremities shows edema and trace bilaterally. [employer] exam is grossly intact. Patient is moving all 4 extremities. Labs show sodium 137, potassium 4.0, serum creatinine 2.06. Hemoglobin 7.5 g/dL, platelet count 71,000. ASSESSMENT: 1. Acute kidney injury, prerenal, currently improved. Patient is maintained on normal saline at 50 mL an hour. 2. Chronic kidney disease, NKF stage III secondary to nephrosclerosis with baseline creatinine about 1.7 mg/dL. 3. Bilateral lower extremity DVT with negative CTA for PE, patient was on IV heparin, and it is now discontinued, it is now discontinued secondary to anemia, and persistent hemoptysis. 4. Thrombocytopenia and anemia, being followed by hematology. 5. Status post in IVC filter placement for bilateral lower extremity DVT. 6. Left upper extremity edema, slowly improving. No evidence of DVT. 7. Right lung pneumonia. 8. History of methicillin-resistant pneumonia during his last admission. PLAN: Encourage increased oral intake. We will likely discontinue the IV fluids by tomorrow. Avoid any further nephrotoxic agents.
[2016-07-09] MEDS: DOXAZOSIN 1 MG TAB PO SCH (20:21)
[2016-07-10] MEDS: PANTOPRAZOLE 40 MG TABLET PO SCH (06:35)
[2016-07-10] MEDS: CARVEDILOL 3.125 MG TAB PO SCH ×2 (06:36→16:42)
[2016-07-10 07:09] LABS: Basophils % (A) 1 %; CH 32.4; CHCM 33.6; Eosinophils # (A) 0.1 k/uL (0-0.7); Eosinophils % (A) 5 %; HDW 2.73; HGB 7.2 gm/dL (13.0-17.5); Luc # (Auto) 0.06; Luc % (Auto) 3; Lymphocytes # (A) 0.8 k/uL (1.0-4.8); Lymphocytes % (A) 31 %; MCH 31.9 pg (25.0-35.0); MCHC 32.9 g/dL (31.0-37.0); Monocytes # (A) 0.2 k/uL (0-1.0); Monocytes % (A) 9 %; Neutrophils # (A) 1.3 k/uL (1.3-7.7); Neutrophils % (A) 53 %; RBC 2.27 m/uL (4.30-5.90); RDW 14.8 % (11.5-15.5); WBC 2.5 k/uL (3.8-10.6)
[2016-07-10 07:11] LABS: Calcium 8.4 mg/dL (8.4-10.2); Potassium 3.9 mmol/L (3.5-5.1); Total Bilirubin 0.6 mg/dL (0.2-1.3); Total Protein 5.4 g/dL (6.3-8.2)
[2016-07-10] MEDS: BUDESONIDE 1 MG/2 ML NEBU INHALATION SCH ×2 (08:49→19:42)
[2016-07-10] MEDS: IPRATROPIUM-ALBUTEROL 3 ML NEB INHALATION SCH ×4 (08:49→19:42)
[2016-07-10] MEDS: VANCOMYCIN 1,750 MG in SODIUM CHLORIDE 0.9% 250 ML IVPB SCH (09:42)
[2016-07-10] MEDS: FAMOTIDINE 20 MG TAB PO SCH (09:42)
[2016-07-10] MEDS: FINASTERIDE 5 MG TAB PO SCH (09:43)
[2016-07-10] MEDS: SUCRALFATE 1 GM TAB PO SCH ×4 (09:43→20:59)
[2016-07-10] MEDS: FERROUS SULFATE 325 MG TAB PO SCH (09:43)
--- NOTE | 2016-07-10 12:52 | CONS ---
DATE OF CONSULTATION: 07/09/2016 REASON FOR CONSULTATION: Pneumonia. HISTORY OF PRESENT ILLNESS: The patient is an 80-year-old male who was recently admitted to [facility] at that time he did have hemoptysis with right upper lobe pneumonia. The cultures are positive for MRSA and the patient was treated with IV vancomycin and afterwards discharged home on a two-week course of oral Zyvox which the patient has finished. Subsequently, evaluated in the office and the patient was doing pretty well with no significant respiratory symptoms. No fever, no chills. Patient presented back to the [facility] ER on 07/04/2016 with chief complaints of increased shortness of breath and cough and congestion. Patient also has been bringing up some sputum that has been white in color. The patient denies any high-grade fever, rigors or chills. Subsequently, he was evaluated by the ER physician. The patient did have a chest x-ray on admission, which did show improvement in radiation. Additional follow-up is recommended and suspect nodularity in the right upper lobe. The patient also had CT angiogram that showed negative for PE; however, patchy bilateral ground-glass appearance most prominent in right upper lobe. Patient with elevated d-dimer and also noticed to have a lower extremity DVT. He was started on heparin, the patient started having hemoptysis and vascular surgery was consulted and the patient did have Judi filter. Patient subsequently had a bronchoscopy done by Dr. Bae and has been treated with vancomycin. I was asked to see the patient today for further recommendation regarding antibiotics therapy. The patient remains to be afebrile. He continues to have a cough with mostly clear sputum. No significant chest pain. No abdominal pain. No nausea, no vomiting or any diarrhea. REVIEW OF SYSTEMS: CONSTITUTIONAL: Positive for weakness and no fever except low-grade of 100.1 on the eleventh. EYES: No complaint. ENT: No complaint. RESPIRATORY: As per HPI. CARDIOVASCULAR: No complaint. GENITOURINARY: No complaint. GASTROINTESTINAL: MUSCULOSKELETAL: No complaint. INTEGUMENTARY: No complaint. PSYCHOLOGICAL: No complaint. ENDOCRINE: No complaint. NEUROLOGICAL: No complaint. PAST MEDICAL HISTORY: Atrial fibrillation, MRSA pneumonia, COPD, coronary artery disease, CVA, TIA, DVT, hyperlipidemia, TN, prostate disorder. PAST SURGICAL HISTORY: Heart catheterization, bronchoscopy, ORIF left elbow, left arthroscopy and bronchoscopy. SOCIAL HISTORY: Remote history of smoking; quit back in 2001. No drinking or drug use. FAMILY HISTORY: Father with history of prostate cancer. Mother with history of uterine cancer. ALLERGIES TO SULFA. Medications currently include the patient is on Tylenol, DuoNeb, Pulmicort, Coreg, Cardura, Pepcid, iron sulfate, Proscar, morphine sulfate, Narcan, Zofran, Protonix, Carafate and vancomycin pharmacy to dose. On examination, blood pressure is 126/55 with a pulse of 83, temperature 99.7. He is 96% on room air. General description is an elderly male lying in bed in no distress. No tachypnea or accessory muscle of respiration use. HEENT examination shows pallor. There is no scleral icterus. Oral mucosa is dry. NECK: Trachea central. There is no thyromegaly. LUNGS: Unlabored breathing with decreased breath sounds at the base. No wheeze. HEART: S1, S2 with regular rate and rhythm. ABDOMEN: Soft. No tenderness. EXTREMITIES: No edema of feet. SKIN: No rash or mass palpable. NEUROLOGICAL: The patient is awake, alert, oriented. Mood and affect normal. LABS: Hemoglobin 7.5, white count 2.7, a BUN of 21, creatinine is 2.06. Vanco trough is 15.5. All cultures so far negative. DIAGNOSTIC IMPRESSION AND PLAN: Patient admitted to the hospital with difficulty in breathing. The patient had no significant fever, elevated white count, status post bronch. Some of his pulmonary symptoms could be related to underlying atrial fibrillation with rapid ventricular rate secondary to decompensation as patient is still not behaving like pneumonia with previous episode of methicillin-resistant Staphylococcus aureus pneumonia adequately treated. PLAN: 1. Addition of short course of vancomycin while watching his kidney function closely until the bronch cultures are finalized. 2. If the patient spikes any new fever or any change in clinical condition or culture, will adjust antibiotic further. Thank you for this consultation. We will follow this patient along with you. KIRAN
[2016-07-10] MEDS: PIPERACILLIN-TAZOBACTAM 3.375 GM in DEXTROSE/WATER 1 50ML.BAG IVPB SCH (16:41)
[2016-07-10] MEDS: SODIUM CHLORIDE 0.9% 1,000 ML IV SCH (16:43)
[2016-07-10] MEDS: DOXAZOSIN 1 MG TAB PO SCH (20:22)
--- NOTE | 2016-07-10 23:05 | PN ---
Kun Bear is an 80-year-old male seen, evaluated, examined. The patient is being treated for MRSA pneumonia and bacterial pneumonia, likely mixed bacterial and/or gram-negative. Patient could not tolerate the anticoagulation, again developed hemoptysis as well as extensive erythema, edema and hematoma formation in the left upper extremity. Given that patient is a poor candidate for anticoagulation, IVC filter has been inserted. The patient even cannot tolerate small amount of anticoagulation. His last set of vitals include blood pressure is 136/66, respiratory rate 18, pulse 87, temperature 100, saturation 96%. HEENT: Unremarkable. NECK: Supple. LUNGS: Good air entry bilaterally. HEART: Regular rate and rhythm. S1 and S2 audible. ABDOMEN: Soft. NEUROLOGICAL: Otherwise, awake and alert. CT scan of the humerus negative for any fracture. Soft tissue swelling and bruising is seen. Other laboratory data reviewed. White cell count 2500, hemoglobin 7.2, hematocrit 22, platelet count 81,000, which is slowly improving. Sodium is 130, potassium 3.9, BUN and creatinine 19 and 1.90, which is down from 21 and 2.06. IMPRESSION: 1. Methicillin-resistant Staphylococcus aureus pneumonia. 2. 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 Recurrent paroxysmal atrial fibrillation, not a candidate for anticoagulation. 4. Renal failure, stage 3 to 4, which is being monitored and observed. 5. 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 PLAN AND RECOMMENDATIONS: As above. Avoid anticoagulation. Continue breathing treatments. Continue antibiotics. Care plan discussed with the primary service as well as Infectious Disease Services as well.
[2016-07-11] MEDS: PIPERACILLIN-TAZOBACTAM 3.375 GM in DEXTROSE/WATER 1 50ML.BAG IVPB SCH ×4 (00:05→20:51)
[2016-07-11] MEDS: ONDANSETRON 4 MG/2 ML VIAL IVP PRN (06:13)
[2016-07-11] MEDS: CARVEDILOL 3.125 MG TAB PO SCH ×2 (06:43→17:28)
[2016-07-11] MEDS: PANTOPRAZOLE 40 MG TABLET PO SCH (06:44)
--- NOTE | 2016-07-11 07:38 | PN ---
DATE OF SERVICE: 07/10/2016 Reason for follow-up is pneumonia. INTERVAL HISTORY: The patient did have another fever of 100.3 and 100.2 around 4:00 this morning. The patient continued to have a cough. He is bringing up some clear frothy sputum. No hemoptysis. Denies any chest pain. No abdominal pain. No nausea, vomiting or any diarrhea. On examination, blood pressure is 133/56 with a pulse of 88, temperature of 100.2. He is 93% on room air. General description is an elderly male, lying in bed in no distress. RESPIRATORY SYSTEM: Unlabored breathing with decreased breath sounds at the base. No wheeze. HEART: S1, S2. Regular rhythm. ABDOMEN: Soft, no tenderness. EXTREMITIES: No edema of feet. LABS: Hemoglobin is 7.2, white count 2.5 with a BUN of 19, creatinine 1.9. Bronch cultures so far negative. DIAGNOSTIC IMPRESSION AND PLAN: Patient with admission to hospital with difficulty in breathing which is likely multifactorial as the patient did have a previous history of methicillin-resistant Staphylococcus aureus infection, is status post bronch and being maintained on vancomycin and is still having a low-grade fever. Will support antibiotic therapy by adding Zosyn to cover for the gram-negative. Repeat blood cultures and repeat a sputum. Continue supportive care.
[2016-07-11] MEDS: IPRATROPIUM-ALBUTEROL 3 ML NEB INHALATION SCH ×4 (08:40→20:05)
[2016-07-11] MEDS: BUDESONIDE 1 MG/2 ML NEBU INHALATION SCH ×2 (08:40→20:05)
[2016-07-11 08:49] LABS: Basophils % (A) 0 %; CH 31.7; CHCM 32.7; Eosinophils # (A) 0.1 k/uL (0-0.7); Eosinophils % (A) 5 %; HCT 23.7 % (39.0-53.0); HDW 2.92; HGB 7.9 gm/dL (13.0-17.5); Luc # (Auto) 0.05; Luc % (Auto) 2; Lymphocytes # (A) 0.6 k/uL (1.0-4.8); Lymphocytes % (A) 24 %; MCH 32.4 pg (25.0-35.0); MCHC 33.4 g/dL (31.0-37.0); MCV 97.3 fL (80.0-100.0); Mean Platelet Volume 7.2; Monocytes # (A) 0.1 k/uL (0-1.0); Monocytes % (A) 5 %; Neutrophils # (A) 1.6 k/uL (1.3-7.7); Neutrophils % (A) 63 %; RBC 2.43 m/uL (4.30-5.90); RDW 14.8 % (11.5-15.5); WBC 2.5 k/uL (3.8-10.6); WBC (Perox) 2.47
[2016-07-11] MEDS: FERROUS SULFATE 325 MG TAB PO SCH (08:51)
[2016-07-11] MEDS: SUCRALFATE 1 GM TAB PO SCH ×4 (08:52→20:51)
[2016-07-11] MEDS: FAMOTIDINE 20 MG TAB PO SCH (08:52)
[2016-07-11] MEDS: FINASTERIDE 5 MG TAB PO SCH (08:52)
[2016-07-11] MEDS: VANCOMYCIN 1,750 MG in SODIUM CHLORIDE 0.9% 250 ML IVPB SCH (08:52)
[2016-07-11 09:06] LABS: Calcium 8.7 mg/dL (8.4-10.2); Potassium 3.9 mmol/L (3.5-5.1)
[2016-07-11] MEDS: SODIUM CHLORIDE 0.9% 1,000 ML IV SCH (12:49)
--- NOTE | 2016-07-11 12:55 | PN ---
DATE OF SERVICE: 07/10/2016 CHIEF COMPLAINT: Shortness of breath. HISTORY OF PRESENT ILLNESS: This gentleman is comfortable. He has had no significant shortness of breath, sputum production, hemoptysis, chest pain, etc. His anemia is being followed. PHYSICAL EXAMINATION: CHEST: Fairly clear. There are scattered rales. CARDIAC: Demonstrates atrial fibrillation. ABDOMEN: Soft, nontender. IMPRESSION: 1. Shortness of breath. 2. Chronic obstructive pulmonary disease. 3. Right upper lobe pneumonitis. 4. History of hemoptysis. 5. Atrial fibrillation. 6. Subcutaneous hemorrhage and hematoma in the left upper arm. PLAN: No change in program. Start to encourage increase activity so he can be discharged soon.
--- NOTE | 2016-07-11 14:02 | PN ---
Patient is seen for followup for acute kidney injury on top of chronic kidney disease, is found to have bilateral lower extremity DVT and has had a Judi filter placed. Swelling in his left upper extremity is significantly improved. Currently patient is sitting up in bed, comfortable. He is going to take a shower. He has been eating well. He has had good urine output. On examination, blood pressure is 105/55, heart rate 97 per minute. He is afebrile. HEART: S1 and S2. LUNGS: Bilateral breath sounds are heard. ABDOMEN: Soft, nontender. Lower extremities shows no significant edema. [employer]: Grossly intact. Labs show sodium 139, potassium 3.9. Hemoglobin 7.9 g/dL. ASSESSMENT: 1. Acute kidney injury, acute tubular necrosis, currently improved. 2. Chronic kidney disease secondary to nephrosclerosis, baseline creatinine about 1.7 mg/dL. 3. Bilateral lower extremity deep venous thrombosis, status post Judi filter placement with negative CTA for pulmonary embolism. 4. Thrombocytopenia, currently stable. Patient has been evaluated by hematology. He was on IV heparin which is now held. 5. Benign prostatic hypertrophy, maintained on Proscar. 6. Hypertension, currently stable. 7. Hemoptysis, status post bronchoscopy with no significant findings with previous history of Staphylococcus aureus pneumonia and ventilator-dependent respiratory failure. PLAN: Patient can be discharged from nephrology standpoint. Will Hep-Lock IV fluids at the time of discharge.
[2016-07-11] MEDS: DOXAZOSIN 1 MG TAB PO SCH (20:51)
[2016-07-12 00:48] VITALS: RESP 16
[2016-07-12] MEDS: PIPERACILLIN-TAZOBACTAM 3.375 GM in DEXTROSE/WATER 1 50ML.BAG IVPB SCH (05:04)
[2016-07-12] MEDS: ACETAMINOPHEN TAB 325 MG TAB PO PRN (05:12)
[2016-07-12] MEDS: CARVEDILOL 3.125 MG TAB PO SCH (06:41)
[2016-07-12] MEDS: PANTOPRAZOLE 40 MG TABLET PO SCH (06:41)
[2016-07-12] MEDS: IPRATROPIUM-ALBUTEROL 3 ML NEB INHALATION SCH ×2 (08:10→12:50)
[2016-07-12] MEDS: BUDESONIDE 1 MG/2 ML NEBU INHALATION SCH (08:10)
[2016-07-12] MEDS: FAMOTIDINE 20 MG TAB PO SCH (08:33)
[2016-07-12] MEDS: FERROUS SULFATE 325 MG TAB PO SCH (08:33)
[2016-07-12] MEDS: FINASTERIDE 5 MG TAB PO SCH (08:33)
[2016-07-12] MEDS: SUCRALFATE 1 GM TAB PO SCH (08:33)
[2016-07-12 08:44] VITALS: PULSE 105
[2016-07-12] MEDS: VANCOMYCIN 1,750 MG in SODIUM CHLORIDE 0.9% 250 ML IVPB SCH (09:44)
[2016-07-12 10:09] LABS: Basophils % (A) 1 %; CH 32.4; CHCM 33.7; Eosinophils # (A) 0.1 k/uL (0-0.7); Eosinophils % (A) 5 %; HCT 24.6 % (39.0-53.0); HDW 3.27; HGB 8.3 gm/dL (13.0-17.5); Luc # (Auto) 0.05; Luc % (Auto) 2; Lymphocytes # (A) 0.8 k/uL (1.0-4.8); Lymphocytes % (A) 31 %; MCH 32.6 pg (25.0-35.0); MCHC 33.6 g/dL (31.0-37.0); MCV 96.8 fL (80.0-100.0); Mean Platelet Volume 6.8; Monocytes # (A) 0.2 k/uL (0-1.0); Monocytes % (A) 6 %; Neutrophils # (A) 1.4 k/uL (1.3-7.7); Neutrophils % (A) 56 %; RBC 2.54 m/uL (4.30-5.90); RDW 15.1 % (11.5-15.5); WBC 2.6 k/uL (3.8-10.6); WBC (Perox) 2.59
--- NOTE | 2016-07-12 10:16 | PN ---
DATE OF SERVICE: 07/11/2016 Reason for follow-up is pneumonia. INTERVAL HISTORY: The patient is afebrile. He has been feeling better, breathing comfortably. Overall cough decreased in intensity. Denies having any chest pain. No abdominal pain. No diarrhea. On examination, blood pressure is 129/50 with a pulse of 78, temperature 98. He is 97% on room air. General description is an elderly male, lying in bed in no distress. RESPIRATORY SYSTEM: Unlabored breathing. Clear to auscultation anteriorly. HEART: S1, S2. Regular rate and rhythm. ABDOMEN: Soft. No tenderness. LABS: Hemoglobin 7.9, white count 2.5 with a BUN of 18, creatinine is 2.07. Bronch culture repeat has been negative. Blood culture repeat so far negative. DIAGNOSTIC IMPRESSION AND PLAN: Patient with right upper lobe pneumonia admitted to the hospital with difficulty breathing which is multifactorial and did have evidence of underlying atrial fibrillation with rapid ventricular rate and secondary cardiac decompensation. Patient at this time will continue with the Vanco and Zosyn. However, the culture remains negative for any resistant pathogen. he will be able to finish therapy with p.o. Avelox for another 10 days. Continue supportive care. MTDD
[2016-07-12 10:21] LABS: Calcium 8.5 mg/dL (8.4-10.2); Potassium 3.7 mmol/L (3.5-5.1); Total Bilirubin 0.9 mg/dL (0.2-1.3)
[2016-07-12] MEDS: SODIUM CHLORIDE 0.9% 1,000 ML IV SCH (10:53)
--- NOTE | 2016-07-12 11:32 | P.DS ---
Providers Date of admission: 07/04/16 21:21 Expected date of discharge: 07/12/16 Attending physician: Remington Underwood Consults: 07/05/16 08:53 Consult Physician Routine Consulting Provider: Melodie Rocha Consult Reason/Comments: Renal function Do you want consulting provider notified?: Yes 07/05/16 08:54 Consult Physician Routine Consulting Provider: Yasir Mann Consult Reason/Comments: Elevated d-dimer Do you want consulting provider notified?: Yes Consult Physician Routine Consulting Provider: Alverto Portillo Consult Reason/Comments: Sore throat Do you want consulting provider notified?: Yes 07/07/16 10:24 Consult Physician Urgent Consulting Provider: Steven Bailey Consult Reason/Comments: dvt/filter Do you want consulting provider notified?: Yes 07/09/16 14:23 Consult Physician Routine Consulting Provider: Veronica Padilla Consult Reason/Comments: hs of MRSA Do you want consulting provider notified?: Yes Primary care physician: Remington Underwood Hospital Course: 80-year-old male who was admitted on the day of admission for hemoptysis. Patient was recently discharged for hemoptysis and treated for MRSA pneumonia. At that time patient was discharged on linezoid antibiotic. Patient stated that he had not had any hemoptysis since he was discharged however he felt dizzy lightheaded had no appetite was tired all the time. Patient denied any cough fever or chills abdominal pain and no nausea vomiting. Patient did state he felt short of breath. Given the above symptoms patient return to the emergency room on admission was noted that the patient did have episodes of hemoptysis On this admission the elevated d-dimer was 15. Patient had an x -ray on admission it did show some improvement from previous. Also the patient underwent a VQ scan on July 05 which did show multiple matched deficits suggesting a low probability for pulmonary emboli patient did have a CAT scan of the chest which showed no evidence of a pulmonary emboli done on July 07 it was also noted the patient was in atrial fibrillation. Patient was also noted to have a left upper extremity swelling and pain and an IV site. The IV was discontinued ultrasound and x-rays obtained of the left upper arm showed no hematoma it was consistent with cellulitis. Dopplers to the lower extre 08 of July mities were obtained did show acute with chronic bilateral DVTs. Patient underwent a bronchoscopic this admission as well. the bronchoscopywas done on the july 06 There were no mass lesions identified. The Bronchoscophy showed an inflammatory process with thick. Secretions and mucous plugs present bilaterally more on the right than the left this was addressed by pulmonology. Additionally the patient was seen by Dr. Bailey did undergo an IVC filter on July 07 Additionally patient was seen by hematology oncology Dr. Mann. Patient does have bilateral acute DVTs proximal. Ideally anticoagulation would be necessarily however the patient is having significant hemoptysis and there is been a drop in hemoglobin. Hematology felt the patient was at an increased risk which outweighed the benefit. The patient's IV heparin was stopped. The plan by hematology oncology is to resume anticoagulation in outpatient setting if hemoptysis does not recur patient did have a drop in his hemoglobin and did receive 1 unit of packed red blood cells on July 08 for hemoglobin of 7.1. The hemoglobin was monitored closely the platelet count was also monitored. Hematology oncology felt that the anemia acute blood loss was likely due to low platelets, anticoagulation and the recent procedure as well as the hemoptysis. Subsequently the patient was stabilized from all consulting physicians was felt to be appropriate to be discharged home Impression discharge diagnosis Present on admission right upper lobe pneumonia improving Paroxysmal atrial fibrillation not a candidate for oral anticoagulation Anemia this admission acute blood loss likely due to low platelets, anticoagulation, and recent procedure as well as hemoptysis Acute renal failure acute tubular necrosis improving Chronic kidney disease stage III secondary to nephrosclerosis A prior history of pulmonary emboli and DVTs on Xarelto prior to this admission Elevated d-dimer this admission with a VQ scan and a CAT scan of the chest showing l no evidence of pulmonary emboli Bilateral Dopplers to the lower extremities acute bilateral proximal DVTs Present on admission bicytopenia could be related to bone marrow suppression from recent acute illness A neck mass extensively worked up previously with no evidence of malignancy resolved with antibiotic Status post IVC filter on July 07 BPH Bronchoscopic with evidence of bilateral mucous plugging Echocardiogram May 2016 left ventricular systolic function low normal with an EF between 50 and 55% with mild aortic stenosis with mild pulmonary hypertension The above dictated assessment and findings were discussed with dr underwood Impression and the plan of care have been dictated as directed. Christal Rooney nurse practitioner acting as a scribe for dr arce Plan - Discharge Summary New Discharge Prescriptions: Moxifloxacin HCl [Avelox] 400 mg PO DAILY #10 tablet Discharge Medication List Omeprazole [PriLOSEC] 20 mg PO QAM 11/27/14 [History] Famotidine [Pepcid] 20 mg PO BID tab 11/28/14 [Rx] Sucralfate [Carafate] 1 gm PO QID tab 11/28/14 [Rx] Acetaminophen Tab [Tylenol] 1,000 mg PO Q6HR PRN 12/23/14 [History] Ferrous Sulfate [Iron (65 MG Elemental)] 325 mg PO DAILY 12/23/14 [History] Carvedilol [Coreg] 3.125 mg PO BID 05/14/16 [History] Doxazosin [Cardura] 1 mg PO HS 05/14/16 [History] Finasteride [Proscar] 5 mg PO QAM 05/14/16 [History] Potassium Chloride [Klor-Con 10] 10 meq PO DAILY 05/14/16 [History] Aspirin 325 mg PO DAILY 07/04/16 [History] Moxifloxacin HCl [Avelox] 400 mg PO DAILY #10 tablet 07/12/16 [Rx] Follow up Appointment(s)/Referral(s): Remington Underwood MD [Primary Care Provider] - 1-2 days Gabriele Bae MD [STAFF PHYSICIAN] - 1 Week Yasir Mann MD [STAFF PHYSICIAN] - 1 Week Discharge Disposition: HOME SELF-CARE
[2016-07-12 11:35] VITALS: BP 124/73; TEMP 97.7
--- NOTE | 2016-07-12 12:15 | P.PN ---
Subjective This is an 80-year-old male being evaluated and examined today on the sixth floor. This patient is well-known to our services. This patient was recently discharged from the hospital for hemoptysis and MRSA pneumonia. She was seen by cardiothoracic surgeons and infectious disease last hospitalization. He was discharged with Linezolid antibiotics. Patient states that he has not had hemoptysis since discharge however he does feel dizziness, lightheadedness, decreased appetite and tired at all times. He denies any recent fever, chills, shortness of breath, chest pain, abdominal pain, nausea, vomiting, diarrhea, or hemoptysis. He was admitted with shortness of breath, elevated d-dimer, acute kidney injury and hematuria. Patient did have an x-ray that does show some improvement from previous. Also shows a possible nodule in the right upper lung. D-Dimer was 15.92. Patient did have a VQ scan on 07/05/2016 which revealed multiple matched deficits suggesting low probability, if there is a persistent high clinical correlation consider CTA. He was also noted to have A. fib, patient was started on low-intensity heparin without a bolus. The patient was noted to have a left upper extremity swelling and pain above the IV site. The IV was flushed and seemed patent however they just decided to discontinue that at IV prophylactically just in case. The upper extremity was dopplered for possible thrombosis and was negative. X-ray was completed and is consistent with cellulitis. Patient also had his lower extremities dopplered and that revealed acute and chronic bilateral DVTs. Patient has post bronchoscopy. Hematology is on consult. We did stop the heparin 07/07/16. The patient did receive an IVC filter on 07/07/2016. Patient did receive 1 unit of packed red blood cells on 07/08/2016 for hemoglobin of 7.1. The patient has been hemodynamically stable.. On examination the patient is sitting up in chair, he is on room air. Patient continues to have a productive cough however it is now clear and the hemoptysis has resolved. Patient is feeling much better today than previously. Objective - Vital Signs Vital signs: Vital Signs Temp 97.7 F 07/12/16 11:29 Pulse 105 H 07/12/16 11:29 Resp 16 07/12/16 11:29 BP 124/73 07/12/16 11:29 Pulse Ox 98 07/12/16 11:29 Intake & Output 07/11/16 07/12/16 07/12/16 18:59 06:59 18:59 Intake Total 918 1050 500 Output Total 300 Balance 918 750 500 Weight 90.7 kg 91.7 kg Intake: IV 400 Sodium Chloride 0.9% 1, 400 000 ml @ 50 mls/hr IV . Q20H BRENDA Rx#:[id number] Intake, IV Titration 300 50 Amount Piperacillin-Tazobactam 3 50 50 .375 gm In Dextrose/Water 1 50ml.bag @ 12.5 mls/hr IVPB Q8H BRENDA Rx#: [id number] Vancomycin 1,750 mg In 250 Sodium Chloride 0.9% 250 ml @ 125 mls/hr IVPB DAILY@0800 BRENDA Rx#: [id number] Oral 618 600 500 Output: Urine 300 Other: Voiding Method Urinal Toilet Toilet Urinal Urinal # Voids 1 - Exam GENERAL EXAM: Alert, active, comfortable in no apparent distress. HEAD: Normocephalic. EYES: Normal reaction of pupils, equal size. NOSE: Clear with pink turbinates. THROAT: No erythema or exudates. NECK: No masses, no JVD. CHEST: No chest wall deformity. LUNGS: Equal air entry, coarse with no crackles, wheeze, rhonchi or dullness. Diminished CVS: S1 and S2 normal with no audible mumurs, regular rhythm. ABDOMEN: No hepatosplenomegaly, normal bowel sounds, no guarding or rigidity. EXTREMITIES: No edema noted, pedal pulses palpable. SKIN: No rashes CENTRAL NERVOUS SYSTEM: No focal deficits, tone is normal in all 4 extremities. - Labs CBC & Chem 7: 07/12/16 09:40 07/12/16 09:40 Labs: Abnormal Lab Results - Last 24 Hours (Table) 07/12/16 07/12/16 Range/Units 09:40 09:40 WBC 2.6 L (3.8-10.6) k/uL RBC 2.54 L (4.30-5.90) m/uL Hgb 8.3 L (13.0-17.5) gm/dL Hct 24.6 L (39.0-53.0) % Plt Count 105 L (150-450) k/uL Lymphocytes # 0.8 L (1.0-4.8) k/uL Creatinine 2.34 H (0.66-1.25) mg/dL Glucose 132 H (74-99) mg/dL ALT 19 L (21-72) U/L Total Protein 6.0 L (6.3-8.2) g/dL Albumin 2.9 L (3.5-5.0) g/dL Microbiology - Last 24 Hours (Table) 07/10/16 11:42 Blood Culture - Preliminary Blood No Growth after 24 hours Assessment and Plan Plan: Assessment Acute exacerbation of COPD Right Upper lobe pneumonia, MRSA, improving Elevated d-dimer Paroxysmal atrial fibrillation History of PE and DVTs Acute renal failure stage III to 4 Hemoptysis Current acute bilateral DVTs Anemia, acute blood loss likely due to low platelets, anticoagulation and recent procedures as well as hemoptysis. 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 Medications have been reviewed and will be continued. Continue antibiotics. Continue with nebulizer treatments. Education was provided on the importance of his nebulizer treatments with his current condition and as well as cough with hemoptysis. Incentive spirometer initiated and encouraged. Continue pulmonary hygiene and supportive care. Patient is post IVC filter insertion. Patient also has Dr. Rocha on for nephrology, Dr. Mann on for elevated d-dimer , and Dr. Portillo on for his sore throat. GI and DVT prophylaxis. Patient will have a repeat chest x-ray today. We will continue to monitor labs/results and adjust treatment as necessary. I performed an examination of the patient and discussed their management with the nurse practitioner. I have reviewed the nurse practitioner's note and agree with the documented findings and plan of care.
--- NOTE | 2016-07-12 12:27 | PN ---
Patient is seen for follow-up for acute kidney injury on top of chronic kidney disease. Currently sitting up in a bedside chair. He is comfortable. He has been eating well. No complaints of chest pain, cough, hemoptysis, shortness of breath. Left arm swelling has significantly decreased. On examination, blood pressure is 124/73, heart rate 105 per minute. He is afebrile. Examination of the heart S1 and S2: Examination of the lungs: Bilateral breath sounds are heard. Abdomen is soft, nontender. Examination of the lower extremities shows chronic skin changes. No significant edema is noted. Labs show sodium 139, potassium 3.7, serum creatinine at 2.3. Hemoglobin 8.3 g/dL. ASSESSMENT: 1. Acute kidney injury with in his serum creatinine slightly higher today; however, overall patient is not on any nephrotoxic medications. He can be discharged from nephrology standpoint and follow up as outpatient for chronic kidney disease. He did have IV contrast for chest CTA, which was done on 07/06/2016. 2. Hemoptysis, currently resolved, most likely related to pneumonia. 3. Right upper lobe pneumonia. 4. Atrial fibrillation with rapid ventricular now with controlled ventricular response. 5. Cardiomyopathy, ejection fraction not known at this time. 6. Bilateral lower extremity DVT status post Judi filter placement with negative CTA for pulmonary embolism. 7. Thrombocytopenia, currently stable. IV heparin was discontinued and patient has an IVC filter. 8. Benign prostatic hypertrophy, maintained on Proscar. 9. Chronic kidney disease secondary to nephrosclerosis with baseline creatinine about 1.7 mg/dL. PLAN: The patient is stable for discharge from nephrology standpoint. Follow up as outpatient for chronic kidney disease. Avoid NSAIDs and hold off on any MARIBEL inhibitors and angiotensin receptor blockers and follow up as outpatient.
--- NOTE | 2016-07-12 13:36 | PN ---
Mr. Kun Bear is an 80-year-old male who was seen, evaluated, examined on the sixth floor. Respiratory status continued to be slowly improving. He is sitting upright in the bed, breathing comfortably. His hemoptysis resolved now, still has cough which is associated with thick purulent sputum, Color appears to be improving. Patient does have dyspnea on exertion. Ecchymosis and bruising at the left upper extremity related to anticoagulation are stable. The patient is status post IVC filter for recurrent deep venous thrombosis and pulmonary embolism. Last set of vitals include blood pressure is 129/50, respiratory 14, pulse 80, temperature is 98, saturation 97% on room air. HEENT EXAMINATION: Otherwise atraumatic, normocephalic, pharynx is clear. Narrow pharyngeal opening is present. Neck is supple without any lymphadenopathy, jugular venous distention or carotid bruits. LUNGS: Bilateral good air entry is present with fine rhonchi and poor expiration. HEART: Regular rate and rhythm. S1 and S2 audible. ABDOMEN: Soft. No rebound or rigidity. EXTREMITIES: +1 peripheral pulses. The left upper extremity does have bruising and ecchymosis present which however, has been stable though. Labs are reviewed. Renal function is noted. Continue to be on higher side. His BUN and creatinine 18 and 2.07. Sodium 139, potassium 3.9. The white cell count 2500. Hemoglobin is 7.9, hematocrit 23.7, platelet count is up to 93,000 as the patient has been off of heparin. Sodium is 139. Culture results and reports are reviewed. The blood cultures no growth so far. Fungal cultures are negative. ( ) phosphorus negative. Bronchoscopy and bronchial washing and the BAL fluid and culture results and reports are reviewed. So far no organism or growth has been seen. Of note that MRSA is not identified again. IMPRESSION: 1. Right upper lobe pneumonia related to MRSA clinically as well as radiographically. Patient appears to be slowly responding. We will continue current therapy and monitor clinical course closely. Can be switched to oral antibiotics in the next 24 to 48 hours. 2. 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 Paroxysmal atrial fibrillation. The patient is not a candidate for anticoagulation. 4. Chronic renal failure, stage III to IV being monitored and observed. 5. Severe chronic obstructive pulmonary disease, emphysema 6. Extensive phimosis and bruising in the left upper extremity. Will follow.
--- NOTE | 2016-07-12 15:23 | XR ---
EXAMINATION TYPE: XR chest 2V DATE OF EXAM: 07/12/2016 12:57 PM COMPARISON: 07/06/2016 TECHNIQUE: PA and lateral views submitted. HISTORY: Shortness of breath FINDINGS: Hyperinflation suggests COPD. Coarsened reticular interstitial pattern suggest chronic pulmonary fibr osis. Hypertrophic and degenerative change of the spine. Biapical pleural thickening with no overt fa ilure. No sizable pleural effusion. Heart size is within normal limits. Atherosclerotic change aorta. IMPRESSION: 1. Correlate for COPD and chronic interstitial lung disease such as fibrosis
--- NOTE | 2016-07-12 17:45 | PN ---
DATE OF SERVICE: 07/12/2016 REASON FOR FOLLOWUP: Pneumonia. INTERVAL HISTORY: The patient is afebrile. He is currently breathing comfortably. He denies significant chest pain. He did have some cough and bringing up some clear sputum. No hemoptysis. No abdominal pain and no diarrhea. On examination, blood pressure is 129/69 with a pulse of 76, temperature 97.8. He is 95% on room air. General description is an elderly male, up in the chair in no distress. RESPIRATORY SYSTEM: Unlabored breathing. Clear to auscultation anteriorly. HEART: S1, S2. Regular rate and rhythm. ABDOMEN: Soft no tenderness. LABS: Sputum and blood cultures are so far negative. Hemoglobin 8.8, white count 2.6. Creatinine 2.34. DIAGNOSTIC IMPRESSION AND PLAN: Patient admitted to hospital with difficulty breathing, multifactorial, but did have a component of pneumonia. He did have a bronchoscopy. Those cultures are negative and a blood culture repeated was negative as well. The patient did have overall improvement on Zosyn and vancomycin. As no methicillin-resistant Staphylococcus aureus has been grown, will discontinue his antibiotic and he will finish therapy with oral Avelox 400 daily for about 7 to 10 days. Plan of care was discussed in detail with the nurse practitioner for the primary team.
--- NOTE | 2016-07-12 22:26 | PN ---
DATE OF SERVICE: 07/11/2016 CHIEF COMPLAINT: COPD, weakness, failure to thrive and hemoptysis. HISTORY OF PRESENT ILLNESS: This gentleman is doing a little bit better. He is less short of breath and his activities is being increased. Hemoglobin has been stable. PHYSICAL EXAMINATION: Chest is quite clear. CARDIAC: Normal except for atrial fibrillation. ABDOMEN: Soft and nontender. EXTREMITIES: Normal. IMPRESSION: 1. Pneumonitis. 2. Hemoptysis. 3. Anemia. 4. Chronic obstructive pulmonary disease. 5. Failure to thrive. PLAN: Progress activity and he might come go home in the next day or 2. It is expected he will be able to return home and not have to go to rehab.
[2016-07-13] MEDS ORDERED: VANCOMYCIN TROUGH DUE 1 EACH MISC MISCELLANE ONE (07:00)
--- NOTE | 2016-07-13 08:08 | PN ---
DATE OF SERVICE: 07/12/2016 CHIEF COMPLAINT: Shortness of breath, pneumonitis, anemia. HISTORY OF PRESENT ILLNESS: This gentleman is doing well. He has had no particular problems or shortness of breath, cough, hemoptysis, etc. and he can probably go home. PHYSICAL EXAMINATION: CHEST: Clear. CARDIAC: Normal. ABDOMEN: Soft, nontender. He remains slightly pale. IMPRESSION: 1. Right upper lobe pneumonitis. 2. Hemoptysis. 3. Atrial fibrillation. 4. Generalized weakness. PLAN: Probably home today and this will be arranged by the nurse practitioner.
--- NOTE | 2016-07-14 05:37 | PN ---
DATE OF SERVICE: 07/12/2016 CHIEF COMPLAINT: Pneumonitis, COPD, hemoptysis and shortness of breath. HISTORY OF PRESENT ILLNESS: This gentleman is doing quite well and he probably will be able to go home later today and this will be arranged by the nurse practitioner.
== END 2016-07-12 13:13 | disposition home or self-care (01) | DRG 166 ==
LOC: EC 17:54 → 6SEL 21:21
PROVIDERS: ADMIT Family Medicine; ATTEND Family Medicine
PROC: 0B9C8ZX Drainage of Right Upper Lung Lobe, Via Natural or Artificial Opening Endoscopic, Diagnostic (ICD-10-PCS; 2016-07-06)
PROC: 0B9F8ZX Drainage of Right Lower Lung Lobe, Via Natural or Artificial Opening Endoscopic, Diagnostic (ICD-10-PCS; principal; 2016-07-06 13:00)
PROC: 06H03DZ Insertion of Intraluminal Device into Inferior Vena Cava, Percutaneous Approach (ICD-10-PCS; 2016-07-07)
PROC: 30233N1 Transfusion of Nonautologous Red Blood Cells into Peripheral Vein, Percutaneous Approach (ICD-10-PCS; 2016-07-08)
DX: J44.0 Chronic obstructive pulmonary disease with (acute) lower respiratory infection (principal); N17.0 Acute kidney failure with tubular necrosis; J15.212 Pneumonia due to Methicillin resistant Staphylococcus aureus; J15.9 Unspecified bacterial pneumonia; D61.818 Other pancytopenia; I82.403 Acute embolism and thrombosis of unspecified deep veins of lower extremity, bilateral; I13.0 Hypertensive heart and chronic kidney disease with heart failure and stage 1 through stage 4 chronic kidney disease, or unspecified chronic kidney disease; L03.114 Cellulitis of left upper limb; R04.2 Hemoptysis; D69.6 Thrombocytopenia, unspecified; I50.9 Heart failure, unspecified; I27.2 Other secondary pulmonary hypertension; J44.1 Chronic obstructive pulmonary disease with (acute) exacerbation; I35.0 Nonrheumatic aortic (valve) stenosis; I48.0 Paroxysmal atrial fibrillation; R31.9 Hematuria, unspecified; N18.3 Chronic kidney disease, stage 3 (moderate); I25.10 Atherosclerotic heart disease of native coronary artery without angina pectoris; E78.5 Hyperlipidemia, unspecified; I25.2 Old myocardial infarction; I73.9 Peripheral vascular disease, unspecified; K21.9 Gastro-esophageal reflux disease without esophagitis; N40.1 Benign prostatic hyperplasia with lower urinary tract symptoms; N47.1 Phimosis; R62.7 Adult failure to thrive; T17.990A Other foreign object in respiratory tract, part unspecified in causing asphyxiation, initial encounter; I71.4 Abdominal aortic aneurysm, without rupture; K57.90 Diverticulosis of intestine, part unspecified, without perforation or abscess without bleeding; J02.9 Acute pharyngitis, unspecified; I83.90 Asymptomatic varicose veins of unspecified lower extremity; R22.1 Localized swelling, mass and lump, neck; T50.8X5A Adverse effect of diagnostic agents, initial encounter; M79.81 Nontraumatic hematoma of soft tissue; Z79.82 Long term (current) use of aspirin; Z79.899 Other long term (current) drug therapy; Z86.711 Personal history of pulmonary embolism; Z86.718 Personal history of other venous thrombosis and embolism; Z87.891 Personal history of nicotine dependence; Z88.2 Allergy status to sulfonamides; Y92.239 Unspecified place in hospital as the place of occurrence of the external cause
CPT/HCPCS: 31624; 36415; 37191; 70490; 71020; 71275; 78582; 80048; 80053; 80202; 81001; 82550; 82553; 82607; 82728; 82747; 83540; 83550; 83883; 83921; 84165; 84484; 85025; 85045; 85379; 85610; 85730; 86334; 86850; 86900; 86901; 86920; 87040; 87070; 87102; 87116; 87205; 87206; 87252; 87299; 87496; 87498; 87502; 87529; 87541; 87798; 88108; 88305; 93005; 93970; 94640; 96360; 99285

== ENCOUNTER → 2016-07-29 | Outpatient (CLI) | payer MEDICARE, BC ==
--- NOTE | 2016-07-29 15:20 | XR ---
EXAMINATION TYPE: XR bone survey complete DATE OF EXAM: 07/29/2016 COMPARISON: NONE HISTORY: R22.1 swelling/mass/lump in neck Bony calvarium : 2 views of the bony calvarium demonstrate no evidence for lytic or sclerotic lesion. Spine: Two views of the cervical, thoracic and lumbar spines are submitted. Degenerative disc space narrowing and spondylosis is seen throughout. No lytic or sclerotic lesions seen. PELVIS: Single view of the pelvis demonstrates no evidence for lytic or sclerotic lesion. UPPER EXTREMITIES: Two views of the upper extremities are submitted. Vague areas of lucency involving the left humeral greater tuberosity may be degenerative in nature. Underlying lesions cannot be enti rely excluded. The remainder of the left upper extremity as well as the entire right upper extremity fail to demonstrate evidence for lytic or sclerotic lesion. LOWER EXTREMITIES: 2 views of the lower extremities demonstrates no evidence for lytic or sclerotic l esion. IMPRESSION: 1. Vague lucencies left humeral greater tuberosity. 2. Otherwise unremarkable study.
== END | disposition home or self-care (01) ==
LOC: RADXRMAIN 12:35
PROVIDERS: ATTEND Internal Medicine Hematology & Oncology
DX: R93.7 Abnormal findings on diagnostic imaging of other parts of musculoskeletal system (principal); R13.10 Dysphagia, unspecified; R22.1 Localized swelling, mass and lump, neck; R63.4 Abnormal weight loss
CPT/HCPCS: 77075

== ENCOUNTER → 2018-03-08 | Outpatient (CLI) | payer MEDICARE ==
--- NOTE | 2018-03-08 09:05 | CT ---
EXAMINATION TYPE: CT chest wo con DATE OF EXAM: 03/08/2018 COMPARISON: Most recent CTA chest July 06, 2016. Older CT April 28, 2016. HISTORY: lump in nipple for [address] DLP: 557 mGycm. Automated Exposure Control for Dose Reduction was Utilized. TECHNIQUE: CT scan of the thorax is performed without IV contrast. FINDINGS: LUNGS: There is mild to moderate biapical pleural/parenchymal scarring with background mild emphysema tous change redemonstrated. There are new small bilateral pleural effusions. There is persistent subp leural reticulation and fibrosis in the bilateral lower lungs most prominent near diaphragm. Areas of more regular multifocal groundglass opacity on prior CT have predominantly resolved, some residual p eripheral scarring in the upper lungs remains present. No obvious suspicious nodules or masses are se en. Scattered bleb formation is noted. Tracheobronchial tree is patent. MEDIASTINUM: Lack of IV contrast is noted to limit evaluation for mediastinal and especially hilar ad enopathy. Some prominent but subcentimeter mediastinal lymph nodes are identified. There are no defin itive greater than 1 cm hilar or mediastinal lymph nodes. No significant pericardial effusion is se en. Heart size is upper limits of normal. There is suspected coronary artery stent in the proximal LA D and mid RCA distribution. Ascending aorta measures up to 4.5 cm in diameter axial image 36 not sign ificant change from prior studies. OTHER: Patient has suspected asymmetric right-sided gynecomastia axial image 36 which is not signific antly changed from April 28, 2016 axial image 39. Dependent density in gallbladder favors small stones and/or gallbladder sludge. There is partial visualization of infrarenal IVC filter. There is mild ca lcified plaque of aorta extending into branch vessels. IMPRESSION: 1. Suspect asymmetric right-sided gynecomastia, CT appearance is not significantly changed from Septe mber 13, 2015. However patient states newly palpable lump would advise appropriate mammogram and ultr asound follow-up to further evaluate. 2. Mild underlying emphysematous change with moderate bilateral parenchymal fibrotic changes most pro minent in the bases raising concern for underlying IPF. New small bilateral pleural effusions are not ed. 3. Stable 4.5 cm ascending aortic aneurysm.
== END | disposition home or self-care (01) ==
LOC: RADCTMAIN 08:19
PROVIDERS: ATTEND Internal Medicine Hematology & Oncology
DX: J43.9 Emphysema, unspecified (principal); J84.10 Pulmonary fibrosis, unspecified; J90 Pleural effusion, not elsewhere classified; I71.2 Thoracic aortic aneurysm, without rupture
CPT/HCPCS: 71250

== ENCOUNTER → 2018-03-08 | Outpatient (CLI) | payer MEDICARE ==
[2018-03-08 10:31] LABS: Appearance,Urine Clear (Clear); Basophils % (A) 0 %; Bilirubin,Urine Negative (Negative); Blood,Urine Small (Negative); Color,Urine Yellow; Eosinophils # (A) 0.1 k/uL (0-0.7); Eosinophils % (A) 2 %; Glucose,Urine (UA) Negative (Negative); HCT 30.1 % (39.0-53.0); HGB 9.4 gm/dL (13.0-17.5); Hypochromasia Moderate; Ketones,Urine Negative (Negative); Leukocyte Esterase,Urine Negative (Negative); Lymphocytes # (A) 0.7 k/uL (1.0-4.8); Lymphocytes % (A) 15 %; MCH 29.4 pg (25.0-35.0); MCHC 31.4 g/dL (31.0-37.0); MCV 93.7 fL (80.0-100.0); Mean Platelet Volume 6.5; Monocytes # (A) 0.3 k/uL (0-1.0); Monocytes % (A) 6 %; Neutrophils # (A) 3.3 k/uL (1.3-7.7); Neutrophils % (A) 75 %; Nitrite,Urine Negative (Negative); PH, Urine 6.5 (5.0-8.0); Platelet Count 249 k/uL (150-450); Protein,Urine Trace (Negative); RBC 3.21 m/uL (4.30-5.90); RBC,Urine 17 /hpf (0-5); RDW 15.5 % (11.5-15.5); Specific Gravity,Urine 1.011 (1.001-1.035); Urobilinogen,Urine <2.0 mg/dL (<2.0); WBC 4.3 k/uL (3.8-10.6); WBC,Urine 1 /hpf (0-5)
[2018-03-08 11:31] LABS: Poikilocytosis (M) Present
[2018-03-08 17:14] LABS: Iron Saturation 10.24 (15.00-50.00)
[2018-03-08 17:17] LABS: Parathyroid Hormone Intact 46.7 pg/mL (14.0-72.0)
[2018-03-08 17:21] LABS: Vitamin D 25 Hydroxy 41.2 ng/mL (30.0-100.0)
[2018-03-08 19:01] LABS: Anion Gap 5.9 mmol/L (4.00-12.00); Calcium 8.5 mg/dL (8.7-10.3); Carbon Dioxide 26.1 mmol/L (21.6-31.8); Magnesium 1.9 mg/dL (1.5-2.4); Phosphorus 3.4 mg/dL (2.4-5.1); Potassium 4.6 mmol/L (3.5-5.5)
[2018-03-08 19:02] LABS: Uric Acid 6.2 mg/dL (3.7-8.7)
== END | disposition home or self-care (01) ==
LOC: LABWHC1 08:41
PROVIDERS: ATTEND Internal Medicine Nephrology
DX: N18.3 Chronic kidney disease, stage 3 (moderate) (principal); E55.9 Vitamin D deficiency, unspecified; E21.3 Hyperparathyroidism, unspecified; D50.9 Iron deficiency anemia, unspecified; M10.9 Gout, unspecified; N39.0 Urinary tract infection, site not specified
CPT/HCPCS: 36415; 80048; 81001; 82306; 82728; 83540; 83550; 83735; 83970; 84100; 84550; 85025

== ENCOUNTER 2018-04-19 10:17 | Inpatient (IN) | payer MEDICARE ==
[2018-04-19] MEDS ORDERED: FUROSEMIDE 10 MG/ML 4 ML VIAL IV STA (10:54)
--- NOTE | 2018-04-19 11:00 | ED ---
General Adult HPI - General Chief complaint: Recheck/Abnormal Lab/Rx Stated complaint: low blood pressure Time Seen by Provider: 04/19/18 10:36 Source: patient Mode of arrival: ambulatory Limitations: no limitations - History of Present Illness Initial comments: Dictation was produced using [employer] dictation software. please excuse any grammatical, word or spelling errors. 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 Patient has established diagnosis of chest heart failure. 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 He over the last several days she's been having exertional dyspnea and weight gain. Patient states that his symptoms are worse with lying flat. Patient is unable course. Patient denies any pain complaints he otherwise feels well today. The ROS documented in this emergency department record has been reviewed and confirmed by me. Those systems with pertinent positive or negative responses have been documented in the HPI. All other systems are other negative and/or noncontributory. PHYSICAL EXAM: General Impression: Alert and oriented x3, not in acute distress HEENT: Normocephalic atraumatic, extra-ocular movements intact, pupils equal and reactive to light bilaterally, mucous membranes moist. Cardiovascular: Heart regular rate and rhythm, S1&S2 audible, no murmurs, rubs or gallops Chest: Mild wheezing Abdomen: Bowel sounds present, abdomen soft, non-tender, non-distended, no organomegaly Musculoskeletal: Pulses present and equal in all extremities, 4+ pitting edema to bilateral lower extremities Motor: Power 5/5 bilaterally, no focal deficits noted Neurological: CN II-XII grossly intact, no focal motor or sensory deficits noted Skin: Intact with no visualized rashes Psych: Normal affect and mood ED course: 82-year-old male with clinical presentation suspicious for acute decompensated heart failure. As upon arrival shows heart rate of 110, rest of vital signs within acceptable limits.Laboratory evaluation obtained. CBC is unremarkable. Hemoglobin appears to be stable. Coag panel is unremarkable. Metabolic panel shows improvement of renal markers. Troponin 0.045 likely secondary troponin leak. Prematurity peptide 32,000. Chest x-ray shows bibasilar infiltrates or small pleural effusions. Patient's clinical presentation consistent with acute decompensated heart failure. Patient does not appear to be in significant respiratory distress. Patient case discussed with Dr. Underwood who requests that a d-dimer be ordered to rule out for PE. I do not think this is necessary given that patient has [place] filter and has been on anticoagulation therapy. Furthermore, patient's HPI and objective findings suggest acute decompensated heart failure. There was obtained which was obviously elevated. VQ scan obtained. Patient has had issues with bleeding in the past. Patient appears to be on the correct dose for over emboli. Patient to be admitted for acute Heart Failure. Cardiology on Consult. EKG interpretation: Ventricular rate 109, normal sinus rhythm, QS 160, QTC 492. No MN prolongation, no QTC prolongation, no ST or T-wave changes noted. Overall , this EKG is unremarkable - Related Data Home Medications Medication Instructions Recorded Confirmed Omeprazole [PriLOSEC] 20 mg PO QAM 11/27/14 04/19/18 Ferrous Sulfate [Iron (65 MG 325 mg PO BID 12/23/14 04/19/18 Elemental)] Doxazosin [Cardura] 1 mg PO HS 05/14/16 04/19/18 Potassium Chloride [Klor-Con 10] 10 meq PO DAILY 05/14/16 04/19/18 Previous Rx's Medication Instructions Recorded Famotidine [Pepcid] 20 mg PO BID tab 11/28/14 Apixaban [Eliquis] 5 mg PO BID tab 02/14/17 Allergies Allergy/AdvReac Type Severity Reaction Status Date / Time azithromycin Allergy Unknown Verified 04/19/18 10:53 benazepril Allergy Unknown Verified 04/19/18 10:53 egg Allergy Unknown Verified 04/19/18 10:53 gluten Allergy Unknown Verified 04/19/18 10:53 milk Allergy Unknown Verified 04/19/18 10:53 Sulfa (Sulfonamide Allergy Rash/Hives Verified 04/19/18 10:53 Antibiotics) Review of Systems ROS Statement: Those systems with pertinent positive or pertinent negative responses have been documented in the HPI. ROS Other: All systems not noted in ROS Statement are negative. Past Medical History Past Medical History: Atrial Fibrillation, Coronary Artery Disease (CAD), Heart Failure, COPD, CVA/TIA, Deep Vein Thrombosis (DVT), GERD/Reflux, GI Bleed, Hyperlipidemia, Memory Impairment, Myocardial Infarction ([place]), Pneumonia, Prostate Disorder, Renal Disease, Vascular Disorder Additional Past Medical History / Comment(s): Pt has had streaks of blood in sputum for the past couple months, hemoptysis with lung abscess-he had a bronchoscopy with BAL 05/19/16, bollous lung disease, AAA, UNK SIZE, LT Leg DVT, renal disease stage II, hematuria, BPH, diverticulosis. Varicosities Richard LEGS, EDEMA FEET, HX FX LT Foot, LT Elbow yrs ago, Freq Gas, 11/27/14 - ADM TO [facility] W / SEV TIA'S, SOME MEMORY CHANGES NOTED. Last Myocardial Infarction Date:: unkn History of Any Multi-Drug Resistant Organisms: MRSA Date of last positivie culture/infection: 06/16/16 MDRO Source:: bronch wash Past Surgical History: Heart Catheterization, Orthopedic Surgery Additional Past Surgical History / Comment(s): 05/19/16 bronchoscopy with BAL, 2012 Colonoscopy-nl. 2008 cardiac cath-nl. RT Shoulder Bicep Tendon repair. ORIF LT elbow 2007. RT knee arthroscopy. Nasophaygeal Larynoscopy, 2013 Broncoscopy (Bronch was pos for e-coli). Past Anesthesia/Blood Transfusion Reactions: Motion Sickness Past Psychological History: No Psychological Hx Reported Smoking Status: Former smoker Past Alcohol Use History: None Reported Past Drug Use History: None Reported - Past Family History Father Family Medical History: Cancer Additional Family Medical History / Comment(s): Father was an alcoholic, FROM PROSTATE CANCER at the age of 87yrs. Mother Family Medical History: Cancer Additional Family Medical History / Comment(s): UTERINE CANCER General Exam Limitations: no limitations Course Vital Signs 04/19/18 04/19/18 04/19/18 10:21 11:00 12:00 Temperature 97.5 F L Pulse Rate 110 H 87 93 Respiratory 18 17 16 Rate Blood Pressure 105/69 103/78 107/74 O2 Sat by Pulse 98 97 99 Oximetry Medical Decision Making - Lab Data Result diagrams: 04/19/18 11:06 04/19/18 11:06 Lab Results 04/19/18 04/19/18 04/19/18 Range/Units 11:06 11:06 11:06 WBC 5.5 (3.8-10.6) k/uL RBC 3.12 L (4.30-5.90) m/uL Hgb 9.4 L (13.0-17.5) gm/dL Hct 30.5 L (39.0-53.0) % MCV 97.8 (80.0-100.0) fL MCH 30.0 (25.0-35.0) pg MCHC 30.7 L (31.0-37.0) g/dL RDW 15.9 H (11.5-15.5) % Plt Count 250 (150-450) k/uL Neutrophils % 83 % Lymphocytes % 9 % Monocytes % 6 % Eosinophils % 1 % Basophils % 1 % Neutrophils # 4.6 (1.3-7.7) k/uL Lymphocytes # 0.5 L (1.0-4.8) k/uL Monocytes # 0.3 (0-1.0) k/uL Eosinophils # 0.0 (0-0.7) k/uL Basophils # 0.0 (0-0.2) k/uL Hypochromasia Slight Macrocytosis Slight PT (9.0-12.0) sec INR (<1.2) APTT (22.0-30.0) sec D-Dimer (<0.60) mg/L FEU Sodium 134 L (137-145) mmol/L Potassium 4.6 (3.5-5.1) mmol/L Chloride 104 (98-107) mmol/L Carbon Dioxide 25 (22-30) mmol/L Anion Gap 5 mmol/L BUN 28 H (9-20) mg/dL Creatinine 1.78 H (0.66-1.25) mg/dL Est GFR (CKD-EPI)AfAm 40 (>60 ml/min/1.73 sqM) Est GFR (CKD-EPI)NonAf 35 (>60 ml/min/1.73 sqM) Glucose 95 (74-99) mg/dL Calcium 8.5 (8.4-10.2) mg/dL Magnesium 2.0 (1.6-2.3) mg/dL Total Bilirubin 1.0 (0.2-1.3) mg/dL AST 18 (17-59) U/L ALT 22 (21-72) U/L Alkaline Phosphatase 73 (38-126) U/L Total Creatine Kinase 32 L (55-170) U/L CK-MB (CK-2) 0.9 (0.0-2.4) ng/mL CK-MB (CK-2) Rel Index 2.8 Troponin I 0.045 H* (0.000-0.034) ng/mL NT-Pro-B Natriuret Pep pg/mL Total Protein 5.7 L (6.3-8.2) g/dL Albumin 2.4 L (3.5-5.0) g/dL 04/19/18 04/19/18 04/19/18 Range/Units 11:06 11:06 11:06 WBC (3.8-10.6) k/uL RBC (4.30-5.90) m/uL Hgb (13.0-17.5) gm/dL Hct (39.0-53.0) % MCV (80.0-100.0) fL MCH (25.0-35.0) pg MCHC (31.0-37.0) g/dL RDW (11.5-15.5) % Plt Count (150-450) k/uL Neutrophils % % Lymphocytes % % Monocytes % % Eosinophils % % Basophils % % Neutrophils # (1.3-7.7) k/uL Lymphocytes # (1.0-4.8) k/uL Monocytes # (0-1.0) k/uL Eosinophils # (0-0.7) k/uL Basophils # (0-0.2) k/uL Hypochromasia Macrocytosis PT 11.5 (9.0-12.0) sec INR 1.1 (<1.2) APTT 29.2 (22.0-30.0) sec D-Dimer 2.43 H (<0.60) mg/L FEU Sodium (137-145) mmol/L Potassium (3.5-5.1) mmol/L Chloride (98-107) mmol/L Carbon Dioxide (22-30) mmol/L Anion Gap mmol/L BUN (9-20) mg/dL Creatinine (0.66-1.25) mg/dL Est GFR (CKD-EPI)AfAm (>60 ml/min/1.73 sqM) Est GFR (CKD-EPI)NonAf (>60 ml/min/1.73 sqM) Glucose (74-99) mg/dL Calcium (8.4-10.2) mg/dL Magnesium (1.6-2.3) mg/dL Total Bilirubin (0.2-1.3) mg/dL AST (17-59) U/L ALT (21-72) U/L Alkaline Phosphatase (38-126) U/L Total Creatine Kinase (55-170) U/L CK-MB (CK-2) (0.0-2.4) ng/mL CK-MB (CK-2) Rel Index Troponin I (0.000-0.034) ng/mL NT-Pro-B Natriuret Pep 28496 pg/mL Total Protein (6.3-8.2) g/dL Albumin (3.5-5.0) g/dL Disposition Clinical Impression: Dyspnea Disposition: ADMITTED IP TO THIS [facility] Condition: Good Referrals: Remington Underwood MD [Primary Care Provider] - 1-2 days Decision Time: 14:54
[2018-04-19 11:22] LABS: Basophils % (A) 1 %; Eosinophils % (A) 1 %; HCT 30.5 % (39.0-53.0); HGB 9.4 gm/dL (13.0-17.5); Hypochromasia Slight; Lymphocytes # (A) 0.5 k/uL (1.0-4.8); Lymphocytes % (A) 9 %; MCHC 30.7 g/dL (31.0-37.0); MCV 97.8 fL (80.0-100.0); Macrocytosis Slight; Mean Platelet Volume 6.8; Monocytes # (A) 0.3 k/uL (0-1.0); Monocytes % (A) 6 %; Neutrophils # (A) 4.6 k/uL (1.3-7.7); Neutrophils % (A) 83 %; Platelet Count 250 k/uL (150-450); RBC 3.12 m/uL (4.30-5.90); RDW 15.9 % (11.5-15.5); WBC 5.5 k/uL (3.8-10.6)
--- NOTE | 2018-04-19 11:30 | XR ---
EXAMINATION TYPE: XR chest 2V DATE OF EXAM: 04/19/2018 COMPARISON: 02/12/2017 INDICATION: Difficulty breathing short of breath TECHNIQUE: Frontal and lateral views of the chest are obtained. FINDINGS: The heart size is normal. The pulmonary vasculature is normal. Bibasilar infiltrates are present. Some blunting of the costophrenic angles may be present suggesting small effusion may be present.. Some hyperinflation flattening the diaphragms suggest COPD. IMPRESSION: 1. Bibasilar infiltrates and/or small pleural effusions. Correlate for atelectasis. Follow-up is rec ommended. 2. COPD
[2018-04-19 11:31] LABS: INR 1.1 (<1.2); Partial Thromboplastin Time 29.2 sec (22.0-30.0); Prothrombin Time 11.5 sec (9.0-12.0)
[2018-04-19 11:35] LABS: Albumin 2.4 g/dL (3.5-5.0); Calcium 8.5 mg/dL (8.4-10.2); Potassium 4.6 mmol/L (3.5-5.1); Total Protein 5.7 g/dL (6.3-8.2)
[2018-04-19 11:58] LABS: Creatine Kinase MB 0.9 ng/mL (0.0-2.4)
[2018-04-19 12:01] LABS: Troponin I 0.045 ng/mL (0.000-0.034)
[2018-04-19] MEDS ORDERED: ASPIRIN 81 MG PO STA (12:47)
[2018-04-19] MEDS ORDERED: NITROGLYCERIN SL TABS 0.4 MG TAB SUBLINGUAL PRN (14:56)
--- NOTE | 2018-04-19 16:28 | NM ---
EXAMINATION TYPE: NM pul vent and perfuse DATE OF EXAM: 04/19/2018 COMPARISON: Chest x-ray 04/19/2018 HISTORY: Rule out PE TECHNIQUE: Utilizing inhalation of 37.9 mCi Tc 99m DTPA aerosol and intravenous injection of 5.18 mC i of Tc 99m MAA, ventilation and perfusion images are acquired post injection in multiple projections . FINDINGS: There is patchy ventilation present. There is some deposition of radiotracer within the distal bronch i. Findings can be compatible COPD. This will make interpretation complicated. No large perfusion ventilation mismatch defects are evident. There is a posterior left upper lobe pe ripheral defect which appears mismatched with ventilation. Additional moderate size defects no large defects are not identified. There are small pleural effusions present this appears to be matched with ventilation and perfusion d efect posteriorly best visualized on the left lateral view. This would at least place risk at the low end of intermediate, 22% chance of pulmonary embolism. IMPRESSION: 1. Distribution on ventilation prevents accurate assessment for pulmonary embolism. Study is indeterm inant based on PIOPED 2 criteria. 2. There are findings of a triple matched defect in the least one perfusion ventilation moderate size d mismatched defect which would suggest at least the low end of intermediate probability for pulmonar y embolism. Assessment for higher probability cannot be performed based on this study.
[2018-04-19 17:55] LABS: Troponin I 0.038 ng/mL (0.000-0.034)
[2018-04-19] MEDS: SODIUM CHLORIDE 0.9% 1,000 ML IV SCH (18:57)
[2018-04-19] MEDS: FUROSEMIDE 10 MG/ML 4 ML VIAL IV SCH (18:57)
[2018-04-19] MEDS: APIXABAN 5 MG TAB PO SCH (21:02)
[2018-04-19] MEDS: DOXAZOSIN 1 MG TAB PO SCH (21:02)
[2018-04-19 22:05] LABS: HDL Cholesterol 34 mg/dL (40-60); LDL Cholesterol,Calculated 54 mg/dL (0-99); Triglycerides 47 mg/dL (<150)
[2018-04-19 22:19] LABS: Cholesterol 99 mg/dL (<200)
[2018-04-20 00:29] LABS: Troponin I 0.035 ng/mL (0.000-0.034)
[2018-04-20] MEDS: FUROSEMIDE 10 MG/ML 4 ML VIAL IV SCH ×3 (05:25→21:12)
[2018-04-20] MEDS: PANTOPRAZOLE 40 MG TABLET PO SCH (06:21)
[2018-04-20] MEDS: POTASSIUM CHLORIDE ER 10 MEQ TAB.ER.PRT PO SCH (08:54)
[2018-04-20] MEDS: APIXABAN 5 MG TAB PO SCH ×2 (08:54→21:12)
[2018-04-20] MEDS ORDERED: ASPIRIN 325 MG TAB PO SCH (09:00)
--- NOTE | 2018-04-20 09:18 | P.CRDCN ---
History of Present Illness Consult date: 04/20/18 Requesting physician: Remington Underwood Consult reason: congestive heart failure Chief complaint: Shortness of breath and bilateral lower extremity edema History of present illness: This is an 82-year-old gentleman with known history of atrial fibrillation, prior DVT and PE, COPD, prior CVA, hyperlipidemia, mild memory impairment, renal disease, hypertension, AAA, he presents to the hospital with a one-week duration of increased of peripheral edema, he also states that over the past one week he's been progressively more short of breath, mostly with exertion. He denies any PND or orthopnea. Chest x-ray shows bibasilar infiltrates and/or small effusions. Patient had a CT of the chest in February which revealed asymmetrical right sided gynecomastia, mild underlying emphysema change with moderate bilateral fibrotic changes and small bilateral pleural effusions stable 4.5 cm ascending aortic aneurysm. Because of abnormality and d -dimer, a VQ scan was ordered here, distribution on ventilation prevented accurate assessment for pulmonary embolism, indeterminant for PE. There are findings of a triple matched defect in at least one perfusion ventilation a moderate-sized mismatch defect which would suggest at least the low and of intermediate probability for PE. Assessment for higher probability cannot be performed based on this study. EKG on presentation here showed atrial fibrillation with occasional PVC. Blood pressure on arrival here 105/60, heart rate 110, 98% on room air. White blood cell count 5.5, hemoglobin 9.4, platelet count 250. D-dimer 2.4, sodium 143, potassium 4.3, BUN 28 and creatinine 1.7. Magnesium 2.0. Troponins 0.045, 0.038, 0.035. BNP level 73855. Patient was initiated on IV Lasix in the emergency room, according to the patient, he is diuresing significantly since his admission here, although the documentation does not show this. Most recent echocardiogram with Doppler study available was performed in 2017 which revealed an ejection fraction of 50- 55%. Past Medical History Past Medical History: Atrial Fibrillation, Coronary Artery Disease (CAD), Heart Failure, COPD, CVA/TIA, Deep Vein Thrombosis (DVT), GERD/Reflux, GI Bleed, Hyperlipidemia, Memory Impairment, Myocardial Infarction ([place]), Pneumonia, Prostate Disorder, Renal Disease, Vascular Disorder Additional Past Medical History / Comment(s): Pt has had streaks of blood in sputum for the past couple months, hemoptysis with lung abscess-he had a bronchoscopy with BAL 05/19/16, bollous lung disease, AAA, UNK SIZE, LT Leg DVT, renal disease stage II, hematuria, BPH, diverticulosis. Varicosities Richard LEGS, EDEMA FEET, HX FX LT Foot, LT Elbow yrs ago, [place] Gas, 11/27/14 - ADM TO [facility] W / SEV TIA'S, SOME MEMORY CHANGES NOTED. Last Myocardial Infarction Date:: unkn History of Any Multi-Drug Resistant Organisms: MRSA Date of last positivie culture/infection: 06/16/16 MDRO Source:: bronch wash Past Surgical History: Heart Catheterization, Orthopedic Surgery Additional Past Surgical History / Comment(s): 05/19/16 bronchoscopy with BAL, 2012 Colonoscopy-nl. 2008 cardiac cath-nl. RT Shoulder Bicep Tendon repair. ORIF LT elbow 2007. RT knee arthroscopy. Nasophaygeal Larynoscopy, 2013 Broncoscopy (Bronch was pos for e-coli). 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 Smoking Status: Former smoker Past Alcohol Use History: None Reported Additional Past Alcohol Use History / Comment(s): HX Smoking cigarettes, pipe and cigars . He smoked between 1/2-1ppd for 20-30 yrs. He quit smoking in 2001 Past Drug Use History: None Reported - Past Family History Father Family Medical History: Cancer Additional Family Medical History / Comment(s): Father was an alcoholic, FROM PROSTATE CANCER at the age of 87yrs. Mother Family Medical History: Cancer Additional Family Medical History / Comment(s): UTERINE CANCER Medications and Allergies Home Medications Medication Instructions Recorded Confirmed Type Omeprazole [PriLOSEC] 20 mg PO QAM 11/27/14 04/19/18 History Famotidine [Pepcid] 20 mg PO BID tab 11/28/14 04/19/18 Rx Ferrous Sulfate [Iron (65 MG 325 mg PO BID 12/23/14 04/19/18 History Elemental)] Doxazosin [Cardura] 1 mg PO HS 05/14/16 04/19/18 History Potassium Chloride [Klor-Con 10] 10 meq PO DAILY 05/14/16 04/19/18 History Apixaban [Eliquis] 5 mg PO BID tab 02/14/17 04/19/18 Rx Allergies Allergy/AdvReac Type Severity Reaction Status Date / Time azithromycin Allergy Unknown Verified 04/19/18 10:53 benazepril Allergy Unknown Verified 04/19/18 10:53 egg Allergy Unknown Verified 04/19/18 10:53 gluten Allergy Unknown Verified 04/19/18 10:53 milk Allergy Unknown Verified 04/19/18 10:53 Sulfa (Sulfonamide Allergy Rash/Hives Verified 04/19/18 10:53 Antibiotics) Physical Exam Vitals: Vital Signs Temp Pulse Pulse Resp BP BP Pulse Ox 04/20/18 08:00 98.2 F 98 18 100/69 96 04/20/18 04:00 98.0 F 88 18 100/59 98 04/20/18 00:00 97.6 F 99 18 102/63 96 04/19/18 20:00 97.9 F 69 18 109/72 97 04/19/18 16:40 65 19 178/84 96 04/19/18 15:21 98.0 F 80 18 113/62 97 04/19/18 14:30 140 H 19 109/68 94 L 04/19/18 14:00 96 16 125/90 98 04/19/18 13:30 123 H 18 98/76 93 L 04/19/18 13:00 93 17 96/68 97 04/19/18 12:30 102 H 19 91/80 95 04/19/18 12:00 93 16 107/74 99 04/19/18 11:00 87 17 103/78 97 04/19/18 10:21 97.5 F L 110 H 18 105/69 98 Intake and Output 04/19/18 04/20/18 04/20/18 22:59 06:59 14:59 Intake Total 0 Balance 0 Intake: Oral 0 Other: Voiding Method Toilet # Voids 1 1 Weight 89.9 kg PHYSICAL EXAMINATION: GENERAL: 82-year-old gentleman in no acute distress at the time of my examination HEENT: Head is atraumatic, normocephalic. Pupils equal, round. Sclera anicteric. Conjunctiva are clear. Mucous membranes of the mouth are moist. Neck is supple. There is elevated jugular venous pressure. No carotid bruit is heard. HEART EXAMINATION: Heart S1 and S2 irregularly irregular CHEST EXAMINATION: Lungs reveal diminished air entry bilaterally ABDOMEN: Soft, nontender. Bowel sounds are heard. No organomegaly noted. EXTREMITIES: 2+ peripheral pulses with trace to 1+ evidence of peripheral edema and no calf tenderness noted. NEUROLOGIC patient is awake, alert and oriented 2 . . Results 04/19/18 11:06 04/19/18 11:06 Cardiac Enzymes 04/19/18 04/19/18 04/19/18 Range/Units 11:06 11:06 17:08 AST 18 (17-59) U/L CK-MB (CK-2) 0.9 1.0 (0.0-2.4) ng/mL Troponin I 0.045 H* 0.038 H* (0.000-0.034) ng/mL 04/19/18 Range/Units 23:13 AST (17-59) U/L CK-MB (CK-2) 1.0 (0.0-2.4) ng/mL Troponin I 0.035 H* (0.000-0.034) ng/mL Coagulation 04/19/18 Range/Units 11:06 PT 11.5 (9.0-12.0) sec APTT 29.2 (22.0-30.0) sec Lipids 04/19/18 Range/Units 11:06 Triglycerides 47 (<150) mg/dL Cholesterol 99 (<200) mg/dL HDL Cholesterol 34 L (40-60) mg/dL CBC 04/19/18 Range/Units 11:06 WBC 5.5 (3.8-10.6) k/uL RBC 3.12 L (4.30-5.90) m/uL Hgb 9.4 L (13.0-17.5) gm/dL Hct 30.5 L (39.0-53.0) % Plt Count 250 (150-450) k/uL Comprehensive Metabolic Panel 04/19/18 Range/Units 11:06 Sodium 134 L (137-145) mmol/L Potassium 4.6 (3.5-5.1) mmol/L Chloride 104 (98-107) mmol/L Carbon Dioxide 25 (22-30) mmol/L BUN 28 H (9-20) mg/dL Creatinine 1.78 H (0.66-1.25) mg/dL Glucose 95 (74-99) mg/dL Calcium 8.5 (8.4-10.2) mg/dL AST 18 (17-59) U/L ALT 22 (21-72) U/L Alkaline Phosphatase 73 (38-126) U/L Total Protein 5.7 L (6.3-8.2) g/dL Albumin 2.4 L (3.5-5.0) g/dL Current Medications Generic Name Dose Route Start Last Admin Trade Name Freq PRN Reason Stop Dose Admin Apixaban 5 mg 04/19/18 21:00 04/20/18 08:54 Eliquis PO 5 mg BID BRENDA Administration Aspirin 325 mg 04/20/18 09:00 04/20/18 08:54 Aspirin PO 325 mg DAILY BRENDA Administration Doxazosin Mesylate 1 mg 04/19/18 21:00 04/19/18 21:02 Cardura PO 1 mg HS BRENDA Administration Furosemide 40 mg 04/20/18 09:00 04/20/18 08:55 Lasix IV 40 mg Q12H BRENDA Administration Sodium Chloride 1,000 mls @ 20 mls/hr 04/19/18 15:00 04/19/18 18:57 Saline 0.9% IV Not Given .Q24H BRENDA Nitroglycerin 0.4 mg 04/19/18 14:56 Nitrostat SUBLINGUAL Q5M PRN Chest Pain Pantoprazole Sodium 40 mg 04/20/18 07:30 04/20/18 06:21 Protonix PO 40 mg AC-[id number] BRENDA Administration Potassium Chloride 10 meq 04/20/18 09:00 04/20/18 08:54 K-Dur 10 PO 10 meq DAILY BRENDA Administration Intake and Output 04/19/18 04/20/18 04/20/18 22:59 06:59 14:59 Intake Total 0 Balance 0 Intake: Oral 0 Other: Voiding Method Toilet # Voids 1 1 Weight 89.9 kg 04/19/18 11:06 04/19/18 11:06 EKG Interpretations (text) EKG shows atrial fibrillation with moderately rapid ventricular response Assessment and Plan Plan: Assessment and plan #1 congestive heart failure, LV function unknown #2 chronic persistent atrial fibrillation on Eliquis for anticoagulation #3 prior CVA #4 history of DVT and PE #5 GERD #6 hyperlipidemia #7 memory impairment #8 AAA #9 hypertension #10 abnormal troponin, likely secondary to congestive heart failure Plan We will obtain an echocardiogram with Doppler study. Continue IV Lasix. We will also start the patient on Entresto, discontinue aspirin. Further recommendations to follow. DNP note has been reviewed, I agree with a documented findings and plan of care. Patient was seen and examined.
--- NOTE | 2018-04-20 11:48 | HP ---
HISTORY AND PHYSICAL CHIEF COMPLAINT: "My legs are swollen." HISTORY OF PRESENT ILLNESS: This is another admission for this 82-year-old white male who is fairly noncompliant. He has had a long-standing history of multiple problems including congestive heart failure, dependent edema, upper GI bleeding, and COPD. He has not been in the office since September of 2017. He came to the emergency room because his legs were swollen. He denies any significant shortness of breath, orthopnea. His BNP was elevated and he was admitted with a diagnosis of congestive heart failure. REVIEW OF SYSTEMS: She has had no recent neurologic problems, change in vision or hearing, etc. He does seem to be a little bit confused and have some trouble answering questions, which is not normal for him. He has had no cough, hemoptysis, orthopnea, PND, chest pain, palpitations, syncope, abdominal pain, nausea, vomiting, hematemesis, melena, hematochezia, jaundice, dysuria, frequency, urgency, etc. He has had problems with bladder control and retention in the past. He is not diabetic. Past medical history, family history, personal and social histories are otherwise unremarkable. He is allergic to AZITHROMYCIN, EGGS, MARIBEL INHIBITORS and SULFA. MEDICATIONS: Medications that he is supposed to be on can be found in the MAR. He does have renal compromise as well and he has had a history of pulmonary emboli in the past. He used to smoke but does not any longer. PHYSICAL EXAM: Blood pressure 132/80 with a pulse of 92, respirations of 34, and he is afebrile. In general, he appeared to be slender and in no acute distress. Skin was dry and lymph nodes are not enlarged. Head, ears, eyes, nose, mouth, and throat were normal. He did have some neck vein distention when lying flat. Chest was fairly clear. There are scattered rales. Cardiac exam demonstrated what sounded like sinus rhythm and no murmurs or extra sounds. The abdomen is flat, soft, and nontender and there are no masses. Extremities demonstrated 3 to 4+ edema bilaterally. Neurologically, he was felt to be intact. He was admitted to the hospital with diagnosis: 1. Lower extremity edema. 2. History of congestive heart failure. 3. Acute congestive heart failure. 4. History of venostasis disease. 5. History of pulmonary emboli. 6. History of upper gastrointestinal hemorrhage. 7. Chronic obstructive pulmonary disease. PLAN: 1. Bed rest. 2. IV fluids. 3. Diuresis. 4. Echocardiogram. 5. Cardiac enzymes. 6. Cardiology consult. 7. Fecal occult blood. MMODL / IJN: [id number] /
--- NOTE | 2018-04-20 11:48 | PN ---
PROGRESS NOTE CHIEF COMPLAINT: Congestive heart failure. HISTORY OF PRESENT ILLNESS: This gentleman denies shortness of breath. He is only complaining about the swelling in the legs. He has had no chest pain, arrhythmias, etc. PHYSICAL EXAM: Chest is fairly clear. Cardiac exam is normal. The abdomen is flat, soft, nontender. Extremities remain edematous. IMPRESSION: 1. Congestive heart failure. 2. Chronic obstructive pulmonary disease. 3. History of renal failure. 4. History of gastrointestinal bleed. PLAN: 1. Order echocardiogram. 2. Cardiology consult. 3. Add to diuretic program and add beta fransisca. MMODL / IJN: [id number] /
[2018-04-20] MEDS: SPIRONOLACTONE 25 MG TAB PO SCH (12:02)
[2018-04-20] MEDS: CARVEDILOL 1.563 MG TAB PO SCH ×2 (12:03→16:38)
[2018-04-20] MEDS: SACUBITRIL/VALSARTAN 24 MG-26 MG TABLET PO SCH ×2 (12:03→21:12)
[2018-04-20 12:48] VITALS: BMI 22.8
[2018-04-20] MEDS: DOXAZOSIN 1 MG TAB PO SCH (21:12)
[2018-04-20] MEDS: SODIUM CHLORIDE 0.9% 1,000 ML IV SCH (21:12)
[2018-04-21] MEDS: PANTOPRAZOLE 40 MG TABLET PO SCH (06:54)
[2018-04-21] MEDS: CARVEDILOL 1.563 MG TAB PO SCH (06:54)
[2018-04-21] MEDS: FUROSEMIDE 10 MG/ML 4 ML VIAL IV SCH ×3 (08:58→20:51)
[2018-04-21] MEDS: SACUBITRIL/VALSARTAN 24 MG-26 MG TABLET PO SCH (08:59)
[2018-04-21] MEDS: APIXABAN 5 MG TAB PO SCH ×2 (09:26→21:03)
[2018-04-21] MEDS: POTASSIUM CHLORIDE ER 10 MEQ TAB.ER.PRT PO SCH (09:26)
[2018-04-21] MEDS: SPIRONOLACTONE 25 MG TAB PO SCH (12:30)
[2018-04-21 13:24] LABS: Calcium 8.5 mg/dL (8.4-10.2); Potassium 4.2 mmol/L (3.5-5.1)
--- NOTE | 2018-04-21 13:40 | ECHOF ---
Referral Reason:CHF MEASUREMENTS -------- HEIGHT: 198.1 cm WEIGHT: 89.8 kg BP: 100/69 RVIDd: 3.3 cm (< 3.3) IVSd: 1.0 cm (0.6 - 1.1) LVIDd: 6.5 cm (3.9 - 5.3) LVPWd: 1.1 cm (0.6 - 1.1) IVSs: 1.1 cm LVIDs: 6.1 cm LVPWs: 1.4 cm LAESV Index (A-L): 54.77 ml/m Ao Diam: 3.9 cm (2.0 - 3.7) AV Cusp: 0.7 cm (1.5 - 2.6) LA Diam: 2.8 cm (2.7 - 3.8) AV maxP.37 mmHg AV meanP.90 mmHg RAP: 5.00 mmHg RVSP: 25.99 mmHg MV EF SLOPE: 113.00 mm/s (70 - 150) MV EXCURSION: 2.39 cm (> 18.000) FINDINGS -------- Resting tachycardia (HR>100bpm). This was a technically good study. The left ventricle is moderately dilated. Left ventricular wall thickness is normal. Overall left ventricular systolic function is severely impaired with, an EF between 20 - 25 %. Global hypokines is with akinesis of the septal and inferior terrazas. The right ventricle is mildly enlarged. LA is severely dilated >40 ml/m2 RA appears enlarged. There is moderate aortic valve sclerosis. There is ehum-vh-jdyyqeoi aortic regurgitation. There i s mild to moderate aortic stenosis present. Peak/mean gradient across the Aortic Valve is 24.37mmHg / 12.90mmHg. The mitral valve leaflets are mildly thickened. Mild mitral annular calcification present. Mild-t o-moderate mitral regurgitation is present. Quci-ok-cqlridym tricuspid regurgitation present. Right ventricular systolic pressure is normal at < 35 mmHg. There is no evidence of pulmonary hypertension. The pulmonic valve was not well visualized. The aortic root is mildy dilated, up to 4.1 cm. Normal inferior vena cava with normal inspiratory collapse consistent with estimated right atrial pre ssure of 5 mmHg. There is a small pericardial effusion is located near the right ventricle. CONCLUSIONS -------- 1. Resting tachycardia (HR>100bpm). 2. This was a technically good study. 3. The left ventricle is moderately dilated. 4. Left ventricular wall thickness is normal. 5. Overall left ventricular systolic function is severely impaired with, an EF between 20 - 25 %. 6. Global hypokinesis with akinesis of the septal and inferior terrazas. 7. The right ventricle is mildly enlarged. 8. LA is severely dilated >40 ml/m2 9. RA appears enlarged. 10. There is moderate aortic valve sclerosis. 11. There is zhve-pz-emcfiliw aortic regurgitation. 12. There is mild to moderate aortic stenosis present. 13. Peak/mean gradient across the Aortic Valve is 24.37mmHg / 12.90mmHg. 14. The mitral valve leaflets are mildly thickened. 15. Mild mitral annular calcification present. 16. Sfmg-gn-ofkwsxtc mitral regurgitation is present. 17. Nldw-hq-otwhzkni tricuspid regurgitation present. 18. Right ventricular systolic pressure is normal at < 35 mmHg. 19. There is no evidence of pulmonary hypertension. 20. The pulmonic valve was not well visualized. 21. The aortic root is mildy dilated, up to 4.1 cm. 22. There is a small pericardial effusion is located near the right ventricle. CLINICAL MICROBIOLOGIST: Joss Park RDCS
--- NOTE | 2018-04-21 14:06 | P.PN ---
Subjective Progress Note Date: 04/21/18 This is an 82-year-old gentleman with known history of atrial fibrillation, prior DVT and PE, COPD, prior CVA, hyperlipidemia, mild memory impairment, renal disease, hypertension, AAA, he presents to the hospital with a one-week duration of increased of peripheral edema, he also states that over the past one week he's been progressively more short of breath, mostly with exertion. He denies any PND or orthopnea. Chest x-ray shows bibasilar infiltrates and/or small effusions. Patient had a CT of the chest in February which revealed asymmetrical right sided gynecomastia, mild underlying emphysema change with moderate bilateral fibrotic changes and small bilateral pleural effusions stable 4.5 cm ascending aortic aneurysm. Because of abnormality and d -dimer, a VQ scan was ordered here, distribution on ventilation prevented accurate assessment for pulmonary embolism, indeterminant for PE. There are findings of a triple matched defect in at least one perfusion ventilation a moderate-sized mismatch defect which would suggest at least the low and of intermediate probability for PE. Assessment for higher probability cannot be performed based on this study. EKG on presentation here showed atrial fibrillation with occasional PVC. Blood pressure on arrival here 105/60, heart rate 110, 98% on room air. White blood cell count 5.5, hemoglobin 9.4, platelet count 250. D-dimer 2.4, sodium 143, potassium 4.3, BUN 28 and creatinine 1.7. Magnesium 2.0. Troponins 0.045, 0.038, 0.035. BNP level 79464. Patient was initiated on IV Lasix in the emergency room, according to the patient, he is diuresing significantly since his admission here, although the documentation does not show this. Most recent echocardiogram with Doppler study available was performed in 2017 which revealed an ejection fraction of 50- 55%. 04/21/2018 Patient was seen and examined this morning, overall he does state that he's feeling better than yesterday. Still complains of feeling dizzy when he gets up , breathing is improving. Blood pressure remains low in the 70s to 80s systolic. We will discontinue his Coreg and and chest O today, continue IV Lasix. Repeat a chest x-ray tomorrow. Sodium is 134 today, potassium 4.2, BUN 32 and creatinine 1.8. Objective - Vital Signs Vital signs: Vital Signs Temp 97.9 F 04/21/18 11:38 Pulse 83 04/21/18 11:38 Resp 16 04/21/18 11:38 BP 87/54 04/21/18 11:38 Pulse Ox 97 04/21/18 11:38 Intake & Output 04/20/18 04/21/18 04/21/18 18:59 06:59 18:59 Intake Total 220 120 Output Total 1450 220 Balance 220 -1450 -100 Weight 89.9 kg 90.2 kg Intake: Oral 220 120 Output: Urine 1450 220 Other: Voiding Method Toilet Toilet Urinal # Voids 1 2 - Exam PHYSICAL EXAMINATION: GENERAL: 82-year-old gentleman in no acute distress at the time of my examination HEENT: Head is atraumatic, normocephalic. Pupils equal, round. Sclera anicteric. Conjunctiva are clear. Mucous membranes of the mouth are moist. Neck is supple. There is elevated jugular venous pressure. No carotid bruit is heard. HEART EXAMINATION: Heart S1 and S2 irregularly irregular CHEST EXAMINATION: Lungs reveal diminished air entry bilaterally ABDOMEN: Soft, nontender. Bowel sounds are heard. No organomegaly noted. EXTREMITIES: 2+ peripheral pulses with trace to 1+ evidence of peripheral edema and no calf tenderness noted. NEUROLOGIC patient is awake, alert and oriented 2 . . - Labs CBC & Chem 7: 04/19/18 11:06 04/21/18 12:30 Labs: Abnormal Lab Results - Last 24 Hours (Table) 04/21/18 Range/Units 12:30 Sodium 134 L (137-145) mmol/L Carbon Dioxide 31 H (22-30) mmol/L BUN 32 H (9-20) mg/dL Creatinine 1.82 H (0.66-1.25) mg/dL Assessment and Plan Plan: Assessment and plan #1 congestive heart failure, #2 chronic persistent atrial fibrillation on Eliquis for anticoagulation #3 prior CVA #4 history of DVT and PE #5 GERD #6 hyperlipidemia #7 memory impairment #8 AAA #9 hypertension #10 abnormal troponin, likely secondary to congestive heart failure Plan Echocardiogram with Doppler study revealed an ejection fraction of 20-25%, mild to moderate OK and koqe-qm-zbciwzvh TR. Holding off on the patient's and chest O and Coreg at that this time because of hypotension. We will also discontinue the Cardura. Continue Lasix and Aldactone. Daily lytes BUN and creatinine. DNP note has been reviewed, I agree with a documented findings and plan of care. Patient was seen and examined.
[2018-04-21 14:15] LABS: Glucose,Whole Blood 120 mg/dL (75-99)
--- NOTE | 2018-04-21 14:39 | XR ---
EXAMINATION TYPE: XR chest 1V DATE OF EXAM: 04/21/2018 COMPARISON: 04/19/2018 INDICATION: CHF TECHNIQUE: Single frontal view of the chest is obtained. FINDINGS: The heart size is normal. The pulmonary vasculature is normal. Left lower lobe infiltrate is present. Minimal left pleural effusion may be present. IMPRESSION: 1. Left lower lobe infiltrate and/or effusion.
[2018-04-21 16:13] LABS: Appearance,Urine Clear (Clear); Bacteria,Urine Rare /hpf; Bilirubin,Urine Negative (Negative); Blood,Urine Moderate (Negative); Color,Urine Yellow; Glucose,Urine (UA) Negative (Negative); Hyaline Casts,Urine 1 /lpf (0-2); Ketones,Urine Negative (Negative); Leukocyte Esterase,Urine Negative (Negative); Mucus,Urine Rare /hpf; Nitrite,Urine Negative (Negative); Protein,Urine Negative (Negative); RBC,Urine 20 /hpf (0-5); Specific Gravity,Urine 1.007 (1.001-1.035); WBC,Urine 1 /hpf (0-5)
--- NOTE | 2018-04-21 17:04 | PN ---
PROGRESS NOTE I am covering for Dr. Underwood. DATE OF SERVICE: 04/21/2018. CHIEF COMPLAINT: CHF. This 82-year-old gentleman admitted with CHF and COPD and multiple other medical problems was given Entresto, but the patient's blood pressure dropped and Entresto was stopped. Currently after walking the blood pressure again dropped and the patient was given IV bolus fluids. The patient is being closely monitored. Patient is complaining of some tiredness at this time. The patient also has chronic persistent atrial fibrillation, on anticoagulation. Past medical history reviewed. REVIEW OF SYSTEMS: CARDIOVASCULAR SYSTEM: As mentioned earlier. RESPIRATORY SYSTEM: As mentioned earlier. GI: As mentioned earlier. : No dysuria or retention. NERVOUS SYSTEM: As mentioned earlier. CURRENT MEDICATIONS: 1. Eliquis 5 mg p.o. b.i.d. 2. Lasix 40 mg IV. 3. Nitrostat. 4. Protonix. 5. K-Dur 10 mEq p.o. daily. 6. Aldactone 25 mg p.o. daily. PHYSICAL EXAMINATION: Patient is alert, oriented x3. Pulse 83, blood pressure 82/42, respirations 16, temperature 97.9, pulse ox 97% on room air. HEENT: Conjunctivae normal. Oral mucosa moist. NECK: No jugular venous distention. No carotid bruit. No lymph node enlargement. CARDIOVASCULAR SYSTEM: S1, S2 muffled. RESPIRATORY SYSTEM: Breath sounds diminished at the bases. A few scattered rhonchi and crackles. ABDOMEN: Soft, non-tender. LEGS: No edema. No swelling. NERVOUS SYSTEM: No focal deficit. LABS: WBC 5.5, hemoglobin 9.4. D-dimer is 2.43. The pulmonary perfusion imaging V/Q scan. Two-D echo showed ejection fraction of 20% to 25% with severe global hypokinesia in septal and anterior terrazas. The other labs are noted. ASSESSMENT: 1. Congestive heart failure, acute exacerbation, with acute on chronic systolic dysfunction, ejection fraction 20% to 25%. 2. Ischemic cardiomyopathy. 3. Hypotension and shock with cardiogenic shock. 4. History of chronic obstructive pulmonary disease. 5. History of renal failure. 6. History of gastrointestinal bleed. 7. History of cerebrovascular accident. 8. History of deep venous thrombosis and pulmonary embolism. 9. Gastroesophageal reflux disease. 10.Hyperlipidemia. 11.History of abdominal aortic aneurysm. 12.History of hypertension. 13.Abnormal troponins, likely secondary to congestive heart failure per Cardiology. 14.Hyponatremia. 15.Increased creatinine with chronic kidney disease, stage III. RECOMMENDATIONS AND DISCUSSION: In this 82-year-old gentleman who presented with multiple complex medical issues, we will monitor the patient closely, continue the current medications, continue with symptomatic treatment. Repeat labs. Otherwise, continue with the fluid boluses. We will hold Entresto at this time. Hold beta blockers and MARIBEL inhibitors. Closely follow with Cardiology. Prognosis guarded because of multiple complex medical issues. Further recommendations to follow. MMODL / IJN: [id number] /
--- NOTE | 2018-04-21 17:11 | CDI ---
Documentation Clarification Form Date: 04/21/2018 5:00:00 PM From: Hilaria Kessler RN, CCDS Admit Date: 04/19/2018 2:54:00 PM Patient Name: Kun Bear Visit Number: [id number] Discharge Date: ATTENTION: The Clinical Documentation Specialists (CDI) and [facility] Coding Staff appreciate your assistance in clarifying documentation. Please respond to the clarification below the line at the bottom and electronically sign. The CDI & [facility] Coding staff will review the response and follow-up if needed. Please note: Queries are made part of the Legal Health Record. If you have any questions, please contact the author of this message via ITS. Dr. Barber Becerra CHF is documented in the cardiology consult on 04/20/18 and continue in your progress notes History/Risk Factors: Chronic persistent atrial fibrillation, GERD, DVT, PE, Hypertension, CVA, AAA Clinical Indicators: 82-year-old male who present to the hospital with one-week duration of increased peripheral edema, with progressive shortness of breath, mostly with exertion. VS/Pulse OX: 105/60 110 18 98 % RA BNP: 44826 Echocardiogram Results: EF 20-25 % Chest X Ray: Bibasilar infiltrates and/or small effusions. Treatment: Lasix IV, Aldactone PO Daily Lytes, BUN, Creatinine In your professional opinion, can you please clarify the acuity and type of CHF if known? Systolic Heart Failure: Acute Chronic Acute on Chronic Systolic & Diastolic Heart Failure: Acute Chronic Acute on Chronic Heart Failure Unable to Determine Other, please specify (Last Revision: May 2017) MTDD
[2018-04-21 18:44] LABS: Iron Saturation 18.04 (15.00-50.00)
[2018-04-21] MEDS: SODIUM CHLORIDE 0.9% 1,000 ML IV SCH (20:51)
[2018-04-22] MEDS: PANTOPRAZOLE 40 MG TABLET PO SCH (06:31)
[2018-04-22 06:36] LABS: Basophils % (A) 1 %; Eosinophils # (A) 0.1 k/uL (0-0.7); Eosinophils % (A) 2 %; HCT 28.1 % (39.0-53.0); HGB 8.9 gm/dL (13.0-17.5); Lymphocytes # (A) 0.8 k/uL (1.0-4.8); Lymphocytes % (A) 18 %; MCH 30.8 pg (25.0-35.0); MCHC 31.6 g/dL (31.0-37.0); MCV 97.4 fL (80.0-100.0); Macrocytosis Slight; Mean Platelet Volume 6.6; Monocytes # (A) 0.3 k/uL (0-1.0); Monocytes % (A) 7 %; Neutrophils # (A) 3.2 k/uL (1.3-7.7); Neutrophils % (A) 70 %; Platelet Count 246 k/uL (150-450); RBC 2.89 m/uL (4.30-5.90); WBC 4.5 k/uL (3.8-10.6)
[2018-04-22 06:58] LABS: Calcium 8.4 mg/dL (8.4-10.2)
[2018-04-22] MEDS: POTASSIUM CHLORIDE ER 10 MEQ TAB.ER.PRT PO SCH (08:43)
[2018-04-22] MEDS: FUROSEMIDE 10 MG/ML 4 ML VIAL IV SCH (08:43)
[2018-04-22] MEDS: SPIRONOLACTONE 25 MG TAB PO SCH (08:43)
[2018-04-22] MEDS: APIXABAN 5 MG TAB PO SCH ×2 (08:43→22:13)
[2018-04-22] MEDS: SODIUM CHLORIDE 0.9% 1,000 ML IV SCH (10:11)
[2018-04-22] MEDS: FUROSEMIDE 40 MG TAB PO SCH (10:56)
--- NOTE | 2018-04-22 14:17 | P.PN ---
Subjective This is a pleasant 82-year-old male past medical history significant for atrial fibrillation, prior DVT and PE, COPD, history of CVA, dyslipidemia, chronic kidney disease, hypertension and abdominal aortic aneurysm. He is seen and examined laying flat resting comfortably in bed maintaining oxygen saturation on room air. He denies symptoms of chest discomfort, shortness of breath, dizziness or palpitations. Lower extremity edema has almost completely resolved. Blood pressure has been on the low side 85/54 this morning and 97/71 now. Heart rate in the 80s. Laboratory data reviewed, WBC 4.5, hemoglobin 8.9 , platelets 246, sodium 136, potassium 4.0, creatinine 1.75. IV Lasix was held this morning secondary to hypotension. Currently maintained on eliquis 5 mg BID , Lasix IV and Aldactone 25 mg daily. GENERAL: Well-appearing, well-nourished and in no acute distress. NECK: Supple without JVD or thyromegaly. LUNGS: Breath sounds clear to auscultation bilaterally. Respiration equal and unlabored. No wheezes, rales or rhonchi. HEART: Irregular rate and rhythm without murmurs, rubs or gallops. S1 and S2 heard. EXTREMITIES: Normal range of motion, no edema. No clubbing or cyanosis. Peripheral pulses intact. ASSESSMENT Acute exacerbation of systolic heart failure Chronic persistent atrial fibrillation on long-term anticoagulation with controlled ventricular response Abnormal troponin secondary to congestive heart failure Hypertension Dyslipidemia History of CVA History of DVT and PE in the past Abdominal aortic aneurysm PLAN Transitioned to oral diuretics. Coreg and entresto on hold due to hypotension, possibly from over diuresis. Ongoing blood pressure monitoring. Further recommendations to follow. Nurse Practitioner note has been reviewed, I agree with a documented findings and plan of care. Patient was seen and examined. Objective - Vital Signs Vital signs: Vital Signs Temp 97.7 F 04/22/18 11:02 Pulse 84 04/22/18 11:02 Resp 16 04/22/18 11:02 BP 97/71 04/22/18 11:02 Pulse Ox 95 04/22/18 11:02 Intake & Output 04/21/18 04/22/18 04/22/18 18:59 06:59 18:59 Intake Total 600 480 Output Total 1120 700 700 Balance -520 -700 -220 Weight 96.5 kg Intake: Oral 600 480 Output: Urine 1120 700 700 Other: Voiding Method Urinal Indwelling Catheter Indwelling Catheter # Voids 1 1 # Bowel Movements 0 - Labs CBC & Chem 7: 04/22/18 05:59 04/22/18 05:59 Labs: Abnormal Lab Results - Last 24 Hours (Table) 04/21/18 04/21/18 04/21/18 Range/Units 12:30 14:12 16:00 RBC (4.30-5.90) m/uL Hgb (13.0-17.5) gm/dL Hct (39.0-53.0) % RDW (11.5-15.5) % Lymphocytes # (1.0-4.8) k/uL Sodium (137-145) mmol/L BUN (9-20) mg/dL Creatinine (0.66-1.25) mg/dL POC Glucose (mg/dL) 120 H (75-99) mg/dL Iron 35 L (65-175) ug/dL TIBC 194 L (228-460) ug/dL Urine Blood Moderate H (Negative) Urine RBC 20 H (0-5) /hpf Urine Bacteria Rare H (None) /hpf Urine Mucus Rare H (None) /hpf 04/22/18 04/22/18 Range/Units 05:59 05:59 RBC 2.89 L (4.30-5.90) m/uL Hgb 8.9 L (13.0-17.5) gm/dL Hct 28.1 L (39.0-53.0) % RDW 16.0 H (11.5-15.5) % Lymphocytes # 0.8 L (1.0-4.8) k/uL Sodium 136 L (137-145) mmol/L BUN 31 H (9-20) mg/dL Creatinine 1.75 H (0.66-1.25) mg/dL POC Glucose (mg/dL) (75-99) mg/dL Iron (65-175) ug/dL TIBC (228-460) ug/dL Urine Blood (Negative) Urine RBC (0-5) /hpf Urine Bacteria (None) /hpf Urine Mucus (None) /hpf
--- NOTE | 2018-04-22 18:29 | PN ---
PROGRESS NOTE DATE OF SERVICE: 04/22/2018 I am covering for Dr. Underwood. HISTORY OF PRESENT ILLNESS: This 82-year-old gentleman with past medical history of multiple medical problems was admitted severe ischemic cardiomyopathy with CHF acute exacerbation, also had been running later hypotension. Patient also had some pre syncopal episodes yesterday. Cardiology is following the patient closely. Patient is transitioned to p.o. diuretics. Chest x-ray still shows some CHF. The patient has significant low ejection fraction as mentioned earlier. PAST MEDICAL HISTORY: Reviewed. REVIEW OF SYSTEMS: CARDIOVASCULAR: No angina. RESPIRATORY: As mentioned. GI: As mentioned. : No dysuria. NERVOUS SYSTEM: As mentioned earlier. MEDICATIONS: Reviewed and include: 1. Eliquis 5 mg p.o. b.i.d. 2. Lasix 40 mg IV daily. 3. Protonix. 4. Claritin. 5. Aldactone 25 mg p.o. daily. PHYSICAL EXAM: Patient is alert, oriented x3. Pulse 84, blood pressure 97/70, respiration 16, temperature 97.7, pulse ox 94% on room air. HEENT: Conjunctivae normal. NECK: No jugular venous distention. CARDIOVASCULAR: S1, S2. Ejection systolic murmur. RESPIRATORY: Breath sounds diminished in the bases. Bilateral scattered rhonchi. ABDOMEN: Soft, nontender. LEGS: Minimal edema. NERVOUS SYSTEM: No focal deficits. LAB STUDIES: WBC 4.8, hemoglobin is 8.9, and sodium 137, creatinine 1.75. ASSESSMENT: 1. Congestive heart failure acute exacerbation, acute on chronic systolic dysfunction, ejection fraction 20%-25%. 2. Ischemic cardiomyopathy. 3. Relative hypotension and shock with cardiogenic shock. 4. History of chronic obstructive pulmonary disease. 5. History of renal failure. 6. History of gastrointestinal bleed. 7. CVI. 8. History of deep venous thrombosis and pulmonary embolus. 9. History of gastroesophageal reflux disease. 10.Hyperlipidemia. 11.History of abdominal aortic aneurysm. 12.History of hypertension. 13.History of abnormal troponins, likely secondary to congestive heart failure per Cardiology. 14.Hyponatremia. 15.Acute and chronic kidney disease stage III. RECOMMENDATIONS AND DISCUSSION: In this 82-year-old gentleman who presented with multiple complex medical issues , we will monitor the patient closely. Continue the current management and symptomatic treatment. Cautious diuretics. Monitor fluid electrolyte balance. Otherwise, repeat labs. Closely follow with Cardiology. Prognosis extremely guarded because of multiple complex medical issues. Further recommendations to follow. I also recommend bilateral thigh-high Eb's also. GABBYL / IJN: [id number] / KIRAN
[2018-04-23 06:47] LABS: Anisocytosis Slight; Basophils % (A) 1 %; Eosinophils # (A) 0.1 k/uL (0-0.7); Eosinophils % (A) 2 %; HCT 28.6 % (39.0-53.0); Lymphocytes % (A) 22 %; MCH 30.9 pg (25.0-35.0); MCHC 31.5 g/dL (31.0-37.0); MCV 98.1 fL (80.0-100.0); Macrocytosis Slight; Mean Platelet Volume 7.1; Monocytes # (A) 0.3 k/uL (0-1.0); Monocytes % (A) 7 %; Neutrophils # (A) 2.9 k/uL (1.3-7.7); Neutrophils % (A) 67 %; Platelet Count 266 k/uL (150-450); RBC 2.91 m/uL (4.30-5.90); RDW 16.1 % (11.5-15.5); WBC 4.3 k/uL (3.8-10.6)
[2018-04-23] MEDS: PANTOPRAZOLE 40 MG TABLET PO SCH (06:49)
[2018-04-23 06:54] LABS: Calcium 8.5 mg/dL (8.4-10.2); Potassium 4.1 mmol/L (3.5-5.1)
[2018-04-23] MEDS: POTASSIUM CHLORIDE ER 10 MEQ TAB.ER.PRT PO SCH (08:23)
[2018-04-23] MEDS: FUROSEMIDE 40 MG TAB PO SCH (08:23)
[2018-04-23] MEDS: APIXABAN 5 MG TAB PO SCH ×2 (08:23→21:39)
[2018-04-23] MEDS: SPIRONOLACTONE 25 MG TAB PO SCH (08:30)
--- NOTE | 2018-04-23 13:04 | P.PN ---
Subjective Progress Note Date: 04/23/18 This is an 82-year-old gentleman with known history of atrial fibrillation, prior DVT and PE, COPD, prior CVA, hyperlipidemia, mild memory impairment, renal disease, hypertension, AAA, he presents to the hospital with a one-week duration of increased of peripheral edema, he also states that over the past one week he's been progressively more short of breath, mostly with exertion. He denies any PND or orthopnea. Chest x-ray shows bibasilar infiltrates and/or small effusions. Patient had a CT of the chest in February which revealed asymmetrical right sided gynecomastia, mild underlying emphysema change with moderate bilateral fibrotic changes and small bilateral pleural effusions stable 4.5 cm ascending aortic aneurysm. Because of abnormality and d -dimer, a VQ scan was ordered here, distribution on ventilation prevented accurate assessment for pulmonary embolism, indeterminant for PE. There are findings of a triple matched defect in at least one perfusion ventilation a moderate-sized mismatch defect which would suggest at least the low and of intermediate probability for PE. Assessment for higher probability cannot be performed based on this study. EKG on presentation here showed atrial fibrillation with occasional PVC. Blood pressure on arrival here 105/60, heart rate 110, 98% on room air. White blood cell count 5.5, hemoglobin 9.4, platelet count 250. D-dimer 2.4, sodium 143, potassium 4.3, BUN 28 and creatinine 1.7. Magnesium 2.0. Troponins 0.045, 0.038, 0.035. BNP level 55376. Patient was initiated on IV Lasix in the emergency room, according to the patient, he is diuresing significantly since his admission here, although the documentation does not show this. Most recent echocardiogram with Doppler study available was performed in 2017 which revealed an ejection fraction of 50- 55%. 04/21/2018 Patient was seen and examined this morning, overall he does state that he's feeling better than yesterday. Still complains of feeling dizzy when he gets up , breathing is improving. Blood pressure remains low in the 70s to 80s systolic. We will discontinue his Coreg and and entresto today, continue IV Lasix. Repeat a chest x-ray tomorrow. Sodium is 134 today, potassium 4.2, BUN 32 and creatinine 1.8. 04/23/2017 Patient was seen and examined this morning, he had still been on bedrest. Blood pressure this morning and 100/60. We will get the patient up in the chair with assistance today, order bilateral PAMELA hose stockings on him. Continue the by mouth Lasix and Eliquis if the patient is free of dizziness and his blood pressure remains stable while in the chair today, we'll discontinue the Shultz and plan for possible discharge in 24 hours. Objective - Vital Signs Vital signs: Vital Signs Temp 97.6 F 04/23/18 08:23 Pulse 57 L 04/23/18 08:23 Resp 18 04/23/18 08:23 BP 101/54 04/23/18 08:23 Pulse Ox 95 04/23/18 08:23 Intake & Output 04/22/18 04/23/18 04/23/18 18:59 06:59 18:59 Intake Total 560 580 Output Total 1300 1200 475 Balance -740 -1200 105 Weight 96 kg Intake: Oral 560 580 Output: Urine 1300 1200 475 Other: Voiding Method Indwelling Catheter Indwelling Catheter Indwelling Catheter - Exam PHYSICAL EXAMINATION: GENERAL: 82-year-old gentleman in no acute distress at the time of my examination HEENT: Head is atraumatic, normocephalic. Pupils equal, round. Sclera anicteric. Conjunctiva are clear. Mucous membranes of the mouth are moist. Neck is supple. There is elevated jugular venous pressure. No carotid bruit is heard. HEART EXAMINATION: Heart S1 and S2 irregularly irregular CHEST EXAMINATION: Lungs reveal diminished air entry bilaterally ABDOMEN: Soft, nontender. Bowel sounds are heard. No organomegaly noted. EXTREMITIES: 2+ peripheral pulses with trace to 1+ evidence of peripheral edema and no calf tenderness noted. NEUROLOGIC patient is awake, alert and oriented 2 . . - Labs CBC & Chem 7: 04/23/18 06:11 04/23/18 06:11 Labs: Abnormal Lab Results - Last 24 Hours (Table) 04/23/18 04/23/18 Range/Units 06:11 06:11 RBC 2.91 L (4.30-5.90) m/uL Hgb 9.0 L (13.0-17.5) gm/dL Hct 28.6 L (39.0-53.0) % RDW 16.1 H (11.5-15.5) % Sodium 135 L (137-145) mmol/L BUN 30 H (9-20) mg/dL Creatinine 1.82 H (0.66-1.25) mg/dL Assessment and Plan Plan: Assessment and plan #1 congestive heart failure, #2 chronic persistent atrial fibrillation on Eliquis for anticoagulation #3 prior CVA #4 history of DVT and PE #5 GERD #6 hyperlipidemia #7 memory impairment #8 AAA #9 hypertension #10 abnormal troponin, likely secondary to congestive heart failure Plan Up in the chair today with assistance, bilateral PAMELA hose stockings. His blood pressure remained stable and patient is asymptomatic. We will discontinue the Shultz and plan for possible discharge in 24 hours. DNP note has been reviewed, I agree with a documented findings and plan of care. Patient was seen and examined.
[2018-04-23] MEDS ORDERED: TAMSULOSIN 0.4 MG CAP.ER.24H PO SCH (18:30)
--- NOTE | 2018-04-23 19:06 | PN ---
PROGRESS NOTE DATE OF SERVICE: 04/23/2018 I am covering for Dr. Underwood. This 82-year-old gentleman presented with CHF acute exacerbation, also had some hypotension. The patient also had a Shultz catheter. Cardiology following the patient closely. No chest pain. No palpitations. No fever. Mild shortness of breath reported. EXAM: Alert and oriented x3. The pulse is 65, blood pressure is 104/60, respiration 18, temperature 97.4, pulse ox 94% on room. HEENT: Conjunctivae normal. Oral mucosa moist. NECK: No jugular venous distention. No lymph node enlargement. CARDIOVASCULAR: S1, S2. RESPIRATORY: Diminished breath sounds at the bases. A few scattered rhonchi. ABDOMEN: Soft, nontender. LEGS: No swelling. NERVOUS SYSTEM: Diffusely weak. LABS: WBC 4.2, hemoglobin 9, sodium 135, creatinine is 1.82. UA noted. ASSESSMENT: 1. Congestive heart failure acute exacerbation with acute on chronic systolic dysfunction, ejection fraction 20-25%. 2. Ischemic cardiomyopathy. 3. Relative hypotension and shock with cardiogenic shock. 4. History of chronic obstructive pulmonary disease. 5. History of renal failure. 6. History of gastrointestinal bleed. 7. History of cerebrovascular accident. 8. History of deep venous thrombosis and pulmonary embolism. 9. History of gastroesophageal reflux disease. 10.Hyperlipidemia. 11.History of abdominal aortic aneurysm. 12.History of hypertension. 13.History of abnormal troponins likely secondary to congestive heart failure per Cardiology. 14.Hyponatremia. 15.Gait dysfunction. 16.Acute on chronic kidney disease stage 3. RECOMMENDATIONS AND DISCUSSION: In this 82-year-old gentleman who presented with multiple complex medical issues, I would recommend continue the current medications, continue symptomatic treatment. Otherwise, the blood pressure is slightly improving at this time. I recommend PT/OT evaluation and possible ECF rehab. Dr. Underwood will follow. Once the blood pressure is stabilized the cardiac medication may be initiated. Prognosis guarded. Further recommendations to follow. See orders for details. MMODL / IJN: [id number] /
[2018-04-24 06:32] LABS: Basophils % (A) 1 %; Eosinophils # (A) 0.1 k/uL (0-0.7); Eosinophils % (A) 2 %; HCT 30.6 % (39.0-53.0); HGB 9.6 gm/dL (13.0-17.5); Lymphocytes % (A) 21 %; MCH 30.5 pg (25.0-35.0); MCHC 31.5 g/dL (31.0-37.0); MCV 96.8 fL (80.0-100.0); Mean Platelet Volume 6.3; Monocytes # (A) 0.4 k/uL (0-1.0); Monocytes % (A) 8 %; Neutrophils # (A) 3.3 k/uL (1.3-7.7); Neutrophils % (A) 67 %; Platelet Count 289 k/uL (150-450); RBC 3.16 m/uL (4.30-5.90); RDW 15.7 % (11.5-15.5); WBC 4.9 k/uL (3.8-10.6)
[2018-04-24 06:39] LABS: Calcium 8.6 mg/dL (8.4-10.2); Potassium 4.4 mmol/L (3.5-5.1)
[2018-04-24] MEDS: PANTOPRAZOLE 40 MG TABLET PO SCH (06:50)
[2018-04-24 07:46] VITALS: RESP 16
--- NOTE | 2018-04-24 08:01 | XR ---
EXAMINATION TYPE: XR chest 2V DATE OF EXAM: 04/24/2018 COMPARISON: 04/21/2018 INDICATION: CHF TECHNIQUE: Frontal and lateral views of the chest are obtained. FINDINGS: The heart size is normal. The pulmonary vasculature is normal. Infiltrate at the left base is largely resolving. Some residual remains near the costophrenic angle. Some mild blunting the right costophrenic angle may be present.. IMPRESSION: 1. Resolving basilar infiltrates. Some minimal residual remains left basilar small effusion at the ri ght base may be present.
[2018-04-24] MEDS: APIXABAN 5 MG TAB PO SCH (08:26)
[2018-04-24] MEDS: POTASSIUM CHLORIDE ER 10 MEQ TAB.ER.PRT PO SCH (08:26)
[2018-04-24] MEDS: SPIRONOLACTONE 25 MG TAB PO SCH (08:26)
[2018-04-24] MEDS: FUROSEMIDE 40 MG TAB PO SCH (08:26)
[2018-04-24 11:40] VITALS: BP 90/51; PULSE 85; TEMP 98.2
[2018-04-24] MEDS ORDERED: DIGOXIN 125 MCG TAB PO SCH (12:45)
--- NOTE | 2018-04-24 14:32 | P.PN ---
Subjective Progress Note Date: 04/24/18 This is an 82-year-old gentleman with known history of atrial fibrillation, prior DVT and PE, COPD, prior CVA, hyperlipidemia, mild memory impairment, renal disease, hypertension, AAA, he presents to the hospital with a one-week duration of increased of peripheral edema, he also states that over the past one week he's been progressively more short of breath, mostly with exertion. He denies any PND or orthopnea. Chest x-ray shows bibasilar infiltrates and/or small effusions. Patient had a CT of the chest in February which revealed asymmetrical right sided gynecomastia, mild underlying emphysema change with moderate bilateral fibrotic changes and small bilateral pleural effusions stable 4.5 cm ascending aortic aneurysm. Because of abnormality and d -dimer, a VQ scan was ordered here, distribution on ventilation prevented accurate assessment for pulmonary embolism, indeterminant for PE. There are findings of a triple matched defect in at least one perfusion ventilation a moderate-sized mismatch defect which would suggest at least the low and of intermediate probability for PE. Assessment for higher probability cannot be performed based on this study. EKG on presentation here showed atrial fibrillation with occasional PVC. Blood pressure on arrival here 105/60, heart rate 110, 98% on room air. White blood cell count 5.5, hemoglobin 9.4, platelet count 250. D-dimer 2.4, sodium 143, potassium 4.3, BUN 28 and creatinine 1.7. Magnesium 2.0. Troponins 0.045, 0.038, 0.035. BNP level 61936. Patient was initiated on IV Lasix in the emergency room, according to the patient, he is diuresing significantly since his admission here, although the documentation does not show this. Most recent echocardiogram with Doppler study available was performed in 2017 which revealed an ejection fraction of 50- 55%. 04/21/2018 Patient was seen and examined this morning, overall he does state that he's feeling better than yesterday. Still complains of feeling dizzy when he gets up , breathing is improving. Blood pressure remains low in the 70s to 80s systolic. We will discontinue his Coreg and and entresto today, continue IV Lasix. Repeat a chest x-ray tomorrow. Sodium is 134 today, potassium 4.2, BUN 32 and creatinine 1.8. 04/23/2018 Patient was seen and examined this morning, he had still been on bedrest. Blood pressure this morning and 100/60. We will get the patient up in the chair with assistance today, order bilateral PAMELA hose stockings on him. Continue the by mouth Lasix and Eliquis if the patient is free of dizziness and his blood pressure remains stable while in the chair today, we'll discontinue the Shultz and plan for possible discharge in 24 hours. 04/24 2018 Patient was seen and examined this morning, he was up ambulating with physical therapy today. Overall his heart rate has been maintained in the 90s but at times it is noted to go up into the 1:30 range with ambulation. We will add Lanoxin 0.125 mg daily to the medication regime. Blood pressure 100/50, 90/50. Heart rate in the 70s to 80s. Hemoglobin 9.6, platelet count 289. Sodium 133 , potassium 4.4, BUN 33 and creatinine 1.7. Objective - Vital Signs Vital signs: Vital Signs Temp 98.2 F 04/24/18 11:34 Pulse 85 04/24/18 11:34 Resp 16 04/24/18 11:34 BP 90/51 04/24/18 11:34 Pulse Ox 98 04/24/18 11:34 Intake & Output 04/23/18 04/24/18 04/24/18 18:59 06:59 18:59 Intake Total 820 240 480 Output Total 1275 Balance -455 240 480 Weight 84.6 kg Intake: Oral 820 240 480 Output: Urine 1275 Other: Voiding Method Toilet Toilet Urinal Urinal # Voids 1 4 1 # Bowel Movements 1 3 - Exam PHYSICAL EXAMINATION: GENERAL: 82-year-old gentleman in no acute distress at the time of my examination HEENT: Head is atraumatic, normocephalic. Pupils equal, round. Sclera anicteric. Conjunctiva are clear. Mucous membranes of the mouth are moist. Neck is supple. There is elevated jugular venous pressure. No carotid bruit is heard. HEART EXAMINATION: Heart S1 and S2 irregularly irregular CHEST EXAMINATION: Lungs reveal diminished air entry bilaterally ABDOMEN: Soft, nontender. Bowel sounds are heard. No organomegaly noted. EXTREMITIES: 2+ peripheral pulses with trace to 1+ evidence of peripheral edema and no calf tenderness noted. NEUROLOGIC patient is awake, alert and oriented 2 . . - Labs CBC & Chem 7: 04/24/18 06:14 04/24/18 06:14 Labs: Abnormal Lab Results - Last 24 Hours (Table) 04/24/18 04/24/18 Range/Units 06:14 06:14 RBC 3.16 L (4.30-5.90) m/uL Hgb 9.6 L (13.0-17.5) gm/dL Hct 30.6 L (39.0-53.0) % RDW 15.7 H (11.5-15.5) % Sodium 133 L (137-145) mmol/L BUN 33 H (9-20) mg/dL Creatinine 1.77 H (0.66-1.25) mg/dL Glucose 101 H (74-99) mg/dL Assessment and Plan Plan: Assessment and plan #1 congestive heart failure, #2 chronic persistent atrial fibrillation on Eliquis for anticoagulation #3 prior CVA #4 history of DVT and PE #5 GERD #6 hyperlipidemia #7 memory impairment #8 AAA #9 hypertension #10 abnormal troponin, likely secondary to congestive heart failure Plan We will add Lanoxin 0.125 mg daily to the patient's medication regime. He may transfer to rehab once cleared by primary. DNP note has been reviewed, I agree with a documented findings and plan of care. Patient was seen and examined.
--- NOTE | 2018-04-24 16:31 | DS ---
DISCHARGE SUMMARY DATE OF SERVICE: 04/24/2018. CHIEF COMPLAINT: Difficulty breathing and anasarca all secondary to congestive heart failure. HISTORY OF PRESENT ILLNESS AND PHYSICAL EXAM: Details of this man's history and physical can be found in the initial workup. LABORATORY STUDIES: While he was in the hospital he had laboratory studies, details of which can be found in the laboratory section of the chart. COURSE IN THE HOSPITAL: After admission he was placed on bedrest, started on intravenous fluid and IV diuretics. He gradually diuresed and his breathing improved. The dependent edema disappeared and it was felt he could be discharged. He will be sent to [facility] for rehabilitation. FINAL DIAGNOSES: 1. Acute congestive heart failure. 2. Chronic congestive heart failure. 3. Dilated cardiomyopathy. 4. History of pulmonary emboli. 5. Venous insufficiency. 6. History of anemia. 7. Chronic obstructive pulmonary disease. OPERATIONS: None. CONSULTATION: Cardiology. He is improved. MMODL / IJN: [id number] /
== END 2018-04-24 16:47 | DRG 291 ==
LOC: EC 10:17 → 3SCARD 14:54
PROVIDERS: ADMIT Family Medicine; ATTEND Family Medicine
DX: I13.0 Hypertensive heart and chronic kidney disease with heart failure and stage 1 through stage 4 chronic kidney disease, or unspecified chronic kidney disease (principal); I50.23 Acute on chronic systolic (congestive) heart failure; R57.0 Cardiogenic shock; E87.1 Hypo-osmolality and hyponatremia; I48.1 Persistent atrial fibrillation; N17.9 Acute kidney failure, unspecified; E78.5 Hyperlipidemia, unspecified; I25.10 Atherosclerotic heart disease of native coronary artery without angina pectoris; I25.2 Old myocardial infarction; I25.5 Ischemic cardiomyopathy; I49.3 Ventricular premature depolarization; I71.4 Abdominal aortic aneurysm, without rupture; I87.2 Venous insufficiency (chronic) (peripheral); J43.9 Emphysema, unspecified; K21.9 Gastro-esophageal reflux disease without esophagitis; N18.3 Chronic kidney disease, stage 3 (moderate); N40.0 Benign prostatic hyperplasia without lower urinary tract symptoms; K57.90 Diverticulosis of intestine, part unspecified, without perforation or abscess without bleeding; I83.93 Asymptomatic varicose veins of bilateral lower extremities; Z79.01 Long term (current) use of anticoagulants; Z79.899 Other long term (current) drug therapy; Z91.19 Patient's noncompliance with other medical treatment and regimen; Z87.891 Personal history of nicotine dependence; Z86.73 Personal history of transient ischemic attack (TIA), and cerebral infarction without residual deficits; Z86.718 Personal history of other venous thrombosis and embolism; Z86.711 Personal history of pulmonary embolism; Z86.14 Personal history of Methicillin resistant Staphylococcus aureus infection; Z88.1 Allergy status to other antibiotic agents; Z91.012 Allergy to eggs; Z91.011 Allergy to milk products; Z88.2 Allergy status to sulfonamides; Z88.8 Allergy status to other drugs, medicaments and biological substances; Z91.018 Allergy to other foods; Z80.42 Family history of malignant neoplasm of prostate; Z81.1 Family history of alcohol abuse and dependence
CPT/HCPCS: 36415; 71045; 71046; 78582; 80048; 80053; 80061; 81001; 82550; 82553; 82607; 82728; 82747; 83540; 83550; 83735; 83880; 84484; 85025; 85379; 85610; 85730; 93005; 93306; 94760; 96374; 99285